=== PATIENT | female | born 1990 | race African-American/Black ===

== ENCOUNTER 2016-05-05 03:11 | Emergency (ER) | payer MEDICAID, OTHER ==
--- NOTE | 2016-05-05 04:39 | ER Document Report ---
ED General - General Chief Complaint: Cough Stated Complaint: COUGH,VOMITING Notes: Patient is a 25-year-old asthmatic that comes emergency department with 2 complaints. First complaint is a discomfort in the right ear with a "bubbling sensation" and pressure. Ongoing sinus congestion and cough, she states that she has had cough for months now. She has been on prednisone and antibiotics. She occasionally uses a nasal spray and Claritin. Patient occasionally uses her nebulizer as well. Patient denies any fever, wheezing, shortness of breath. She states she cannot sleep because of coughing and congestion. TRAVEL OUTSIDE OF THE [place] IN LAST 30 DAYS: No - Related Data Allergies/Adverse Reactions: azithromycin [From Zithromax Z-Lukas] Allergy (Verified 05/05/16 03:22) Past Medical History - General Information source: Patient - Social History Smoking Status: Never Smoker Frequency of alcohol use: None Drug Abuse: None Lives with: Family Family History: Arthritis, CAD, DM, Hyperlipidemia, Hypertension, Malignancy Pulmonary Medical History: Reports: Hx Asthma, Hx Bronchitis, Hx Pneumonia Renal/ Medical History: Reports: Hx Ovarian Cysts. Denies: Hx Peritoneal Dialysis Musculoskeltal Medical History: Reports Hx Musculoskeletal Deformity, Reports Hx Musculoskeletal Trauma Psychiatric Medical History: Reports: Hx Anxiety, Hx Depression Past Surgical History: Reports: Hx Section - x 2, Hx Orthopedic Surgery - Axilla abscess removal - Immunizations Immunizations up to date: No Hx Diphtheria, Pertussis, Tetanus Vaccination: No Hx Pneumococcal Vaccination: 04/07/00 Review of Systems - Review of Systems Constitutional: No symptoms reported EENT: See HPI Cardiovascular: No symptoms reported Respiratory: See HPI Gastrointestinal: No symptoms reported Genitourinary: No symptoms reported Female Genitourinary: No symptoms reported Musculoskeletal: No symptoms reported Skin: No symptoms reported Hematologic/Lymphatic: No symptoms reported Neurological/Psychological: No symptoms reported Physical Exam - Vital signs Vitals: Temp Pulse Resp BP Pulse Ox 97.9 F 90 16 112/85 96 05/05/16 03:25 05/05/16 03:25 05/05/16 03:25 05/05/16 03:25 05/05/16 03:25 Interpretation: Normal - General General appearance: Appears well, Alert In distress: None - HEENT Head: Normocephalic, Atraumatic Eyes: Normal Conjunctiva: Normal Extraocular movements intact: Yes Eyelashes: Normal Pupils: PERRL Ears: Normal External canal: Other - Large amount of cerumen bilaterally including hard cerumen near the tympanic membrane, cannot visualize the tympanic membrane Sinus: Normal Nasal: Other - Swollen turbinates bilaterally, no other abnormalities noted Mouth/Lips: Normal Pharynx: Normal Neck: Normal - Respiratory Respiratory status: No respiratory distress Chest status: Nontender Breath sounds: Normal Chest palpation: Normal - Cardiovascular Rhythm: Regular Heart sounds: Normal auscultation Murmur: No - Abdominal Inspection: Normal Distension: No distension Bowel sounds: Normal Tenderness: Nontender Organomegaly: No organomegaly - Back Back: Normal, Nontender - Extremities General upper extremity: Normal inspection, Nontender, Normal color, Normal ROM , Normal temperature General lower extremity: Normal inspection, Nontender, Normal color, Normal ROM , Normal temperature, Normal weight bearing. No: Gris's sign - Neurological Neuro grossly intact: Yes Cognition: Normal Orientation: AAOx4 [place] Coma Scale Eye Opening: Spontaneous [place] Coma Scale Verbal: Oriented [place] Coma Scale Motor: Obeys Commands [place] Coma Scale Total: 15 Speech: Normal Motor strength normal: LUE, RUE, LLE, RLE Sensory: Normal - Psychological Associated symptoms: Normal affect, Normal mood - Skin Skin Temperature: Warm Skin Moisture: Dry Skin Color: Normal Course - Re-evaluation Re-evalutation: Patient with congestion, swollen turbinates, reporting symptoms consistent with right ear effusion, clear lungs, no wheezing, no hypoxia. Suspect strong allergic component and congestion symptoms are the cause of her symptoms. - Vital Signs Vital signs: Temp Pulse Resp BP Pulse Ox 98.4 F 93 16 124/76 100 05/05/16 05:08 05/05/16 05:08 05/05/16 03:50 05/05/16 05:08 05/05/16 05:08 Discharge - Discharge Clinical Impression: Sinus congestion, Cough Ear pain Qualifiers: Laterality: right Qualified Code(s): H92.01 - Otalgia, right ear Condition: Stable Disposition: HOME, SELF-CARE Additional Instructions: Your examination is consistent with sinus and nasal congestion, this appears to have caused eustachian tube plugging and your ear symptoms. Your examination suggests this is an allergic problem. Begin to use your nasal spray daily, take the Aide as prescribed daily, follow-up with primary care and consider allergy clinic referral if symptoms do not improve. Return to emergency department for concerning or worsening symptoms. Prescriptions: Hydrocodone Bit/Homatropine [Hycodan Syrup 5-1.5 mg/5 ml Ud Cup] 5 ml PO Q4HP PRN #120 ml PRN Reason: Fexofenadine HCl [Aide Allergy] 180 mg PO DAILY #60 tablet Forms: Return to Work
[2016-05-05 05:11] VITALS: BP 124/76
== END 2016-05-05 05:11 | disposition home or self-care (01) ==
LOC: ER 03:11
DX: R05 Cough (principal); R09.81 Nasal congestion; H61.23 Impacted cerumen, bilateral; H92.01 Otalgia, right ear; J45.909 Unspecified asthma, uncomplicated; Z87.01 Personal history of pneumonia (recurrent)
CPT/HCPCS: 99283

== ENCOUNTER 2016-12-28 01:28 | Emergency (ER) | payer MEDICAID ==
--- NOTE | 2016-12-28 02:19 | ER Document Report ---
ED Headache - General Mode of Arrival: Ambulatory Information source: Patient TRAVEL OUTSIDE OF THE [place] IN LAST 30 DAYS: No - HPI Patient complains to provider of: Headache - General Chief Complaint: Headache Stated Complaint: HEADACHE Time Seen by Provider: 12/28/16 02:02 Notes: Patient is a 26 year old female presenting to the emergency department for headache and aphasia. Patient states she has had headaches for the past 2 months and they are causing her to be worn out and exhausted. Patient states last night and again tonight she had an episode of difficulty speaking while she was with her friends. Patient states that she knew what she wanted to say but it came out like "baby talk" and was not complete sentences or words. Patient states that these episodes lasted less than 30 seconds and she got a headache tonight about 30 minutes after the episode. Patient states that she also had some dizziness, lightheadedness, and some difficulty seeing tonight. Patient states these symptoms are gone but she is still experiencing a headache. Patient states she has seen a neurologist in [place] where she had a brain CT scan that showed something questionable but patient does not recall what it was. Patient saw a neurologist less than 2 weeks ago. Patient was started on trazodone and Topamax. Patient states these medications seem to be working at first but they have stopped working after she took them for a couple of days. Patient is allergic to azithromycin. (PRIYA VEGA) - Related Data Allergies/Adverse Reactions: azithromycin [From Zithromax Z-Lukas] Allergy (Verified 12/28/16 01:37) Past Medical History - General Information source: Patient - Social History Smoking Status: Never Smoker Cigarette use (# per day): No Chew tobacco use (# tins/day): No Smoking Education Provided: No Frequency of alcohol use: Social Drug Abuse: None Family History: Arthritis, CAD, DM, Hyperlipidemia, Hypertension, Malignancy Patient has suicidal ideation: No Patient has homicidal ideation: No Pulmonary Medical History: Reports: Hx Asthma, Hx Bronchitis, Hx Pneumonia Renal/ Medical History: Reports: Hx Ovarian Cysts Musculoskeltal Medical History: Reports Hx Musculoskeletal Deformity, Reports Hx Musculoskeletal Trauma Psychiatric Medical History: Reports: Hx Anxiety, Hx Depression Past Surgical History: Reports: Hx Section - x 2, Hx Orthopedic Surgery - Axilla abscess removal - Immunizations Immunizations up to date: No Hx Diphtheria, Pertussis, Tetanus Vaccination: No Hx Pneumococcal Vaccination: 04/07/00 Review of Systems - Review of Systems Constitutional: No symptoms reported. denies: Fever EENT: See HPI, Other. denies: Blurred vision Cardiovascular: See HPI, Dizziness, Lightheaded. denies: Chest pain Respiratory: No symptoms reported. denies: Short of breath Gastrointestinal: See HPI, Diarrhea, Nausea, Vomiting. denies: Abdominal pain Genitourinary: No symptoms reported Female Genitourinary: No symptoms reported Musculoskeletal: See HPI, Neck pain Skin: No symptoms reported. denies: Rash Hematologic/Lymphatic: No symptoms reported Neurological/Psychological: Weakness, Headaches -: Yes All other systems reviewed and negative Physical Exam - Vital signs Interpretation: Normal - Vital signs Vitals: Temp Pulse Resp BP Pulse Ox 97.8 F 68 17 123/68 100 12/28/16 03:15 12/28/16 03:15 12/28/16 03:15 12/28/16 03:15 12/28/16 03:15 Temperature: 98.6 F Oral Pulse: 90 bpm Blood Pressure: 135/70 Respiratory Rate: 14 Unlabored Pulse Ox: 100% Room Air (PRIYA VEGA) - Notes Notes: GENERAL: Alert, interacts well. No acute distress. HEAD: Normocephalic, atraumatic. EYES: Pupils equal, round, and reactive to light. Extraocular movements intact. ENT: Oral mucosa moist, tongue midline. Nares patent, no nasal septal hematoma, TM's intacts. Well-healed keloids to the posterior aspect of the ear bilaterally. NECK: Full range of motion. Supple. Trachea midline. LUNGS: Clear to auscultation bilaterally, no wheezes, rales, or rhonchi. No respiratory distress. HEART: Regular rate and rhythm. No murmurs, gallops, or rubs. ABDOMEN: Obese. Soft, non-tender. Non-distended. Bowel sounds present in all 4 quadrants. EXTREMITIES: Moves all 4 extremities spontaneously. No edema, radial and dorsalis pedis pulses 2/4 bilaterally. No cyanosis. NEUROLOGICAL: Alert and oriented x3. Normal speech. Cranial nerves II through XII grossly intact. Biceps and patellar DTRs 2+ bilaterally. PSYCH: Normal affect, normal mood. SKIN: Warm, dry, normal turgor. No rashes or lesions noted. (PRIYA VEGA) [id number], finger to nose intact (CINDY DE LA VEGA) Course - Re-evaluation Re-evalutation: 12/28/16 02:25 No acute focal neurologic deficits at this time, only complaint at this time is the headache. I did discuss with the patient that the aphasia that has been transient could possibly represent a seizure versus an atypical migraine. Discussed that is very important to follow-up with her neurologist, particularly given that the patient states something abnormal was seen on a CAT scan that she had since the last CAT scan she had here. Recommended that she request an MRI and follow-up. No indication for acute MRI at this time as all neurologic symptoms have resolved. No evidence of stroke at this time. Patient will be treated with Toradol, Compazine, Benadryl and discharged home. Compazine and Benadryl will be given by mouth as she has to drive home and I do not want to make her too tired to drive by giving her Compazine and Benadryl as shots. Patient is aware that she should not drive after she gets home due to the concern that these might be seizures. (CINDY DE LA VEGA) - Vital Signs Vital signs: Temp Pulse Resp BP Pulse Ox 97.8 F 68 17 123/68 100 12/28/16 03:15 12/28/16 03:15 12/28/16 03:15 12/28/16 03:15 12/28/16 03:15 Discharge - Discharge Clinical Impression: Migraine Qualifiers: Migraine type: without aura Status migrainosus presence: with status migrainosus Intractability: intractable Qualified Code(s): G43.011 - Migraine without aura, intractable, with status migrainosus Condition: Stable Disposition: HOME, SELF-CARE Additional Instructions: Migraine Headache The physician feels that your symptoms are due to a migraine attack. Migraines are caused by changes in the blood vessels of the head. Arteries go into spasm, often causing warning symptoms that a headache may begin soon. As the spasm goes away, the vessels dilate and throb, causing the pounding pain of a migraine headache. Migraines often cause nausea and vomiting. The treatment of headaches varies with severity and cause of pain. Not all headaches need pain shots -- in fact, there is evidence that using narcotics for headaches may make them worse in the long run. The physician will determine the therapy that's in your best interest for this particular headache. Medications are available that may prevent migraines, or stop them as they first occur. If one medication is not helpful, try another. If migraines are frequent, be patient -- follow the doctor's recommendations. Call the physician if you are worsening, or if new symptoms arise. It is possible that your difficulty in speaking also known as a fascia could be coming from either an atypical migraine or from a seizure. It is very important that she do not drive until we have ruled out seizures. It is also very important that you follow-up with your neurologist as an outpatient. You mentioned that on a prior CAT scan something was seen but they were not sure what it was, as your symptoms are progressing it may be gonzalez to have an MRI performed. You do not need an MRI tonight as all your symptoms have resolved. Rachna Attestation: 12/28/16 05:38 I personally performed the services described in the documentation, reviewed and edited the documentation which was dictated to the scribe in my presence, and it accurately records my words and actions. (CINDY DE LA VEGA) Raulibe Documentation - Scribe Written by Rachna:: Rachna Keller, 12/28/2016 2:30 acting as scribe for :: Rachel
[2016-12-28] MEDS ORDERED: PROCHLORPERAZINE MALEATE 10 MG TABLET PO ONE (02:23)
[2016-12-28] MEDS ORDERED: DIPHENHYDRAMINE HCL 50 MG CAPSULE PO ONE (02:23)
[2016-12-28] MEDS ORDERED: KETOROLAC TROMETHAMINE 60 MG/2 ML SDV IM ONE (02:23)
[2016-12-28 03:12] VITALS: BP 123/68
== END 2016-12-28 03:19 | disposition home or self-care (01) ==
LOC: ER 01:28
DX: G43.011 Migraine without aura, intractable, with status migrainosus (principal); R47.01 Aphasia; R42 Dizziness and giddiness; H53.9 Unspecified visual disturbance; Z79.899 Other long term (current) drug therapy
CPT/HCPCS: 99283; 96372; J3490; J1885; S0183

== ENCOUNTER 2017-01-28 09:34 | Emergency (ER) | payer SELFPAY ==
[2017-01-28] MEDS ORDERED: PROCHLORPERAZINE MALEATE 10 MG TABLET PO ONE (10:36)
[2017-01-28] MEDS ORDERED: KETOROLAC TROMETHAMINE 60 MG/2 ML SDV IM ONE (10:36)
[2017-01-28] MEDS ORDERED: DIPHENHYDRAMINE HCL 50 MG CAPSULE PO ONE (10:36)
--- NOTE | 2017-01-28 10:50 | ER Document Report ---
HPI - HPI Patient complains to provider of: Headache Onset: Other Onset/Duration: Intermittent Quality of pain: Throbbing Severity: Moderate Pain Level: 4 Context: Patient complains of intermittent headache for 2 days. Is currently waiting on neurology referral from her primary care physician. States this is not the worst headache area. Patient does report some nausea but no vomiting. Denies fever or recent illness. Associated Symptoms: Headache, Nausea. denies: Vomiting Exacerbated by: Denies Relieved by: Denies Similar symptoms previously: Yes Recently seen / treated by doctor: Yes - ROS ROS below otherwise negative: Yes Systems Reviewed and Negative: Yes All other systems reviewed and negative - CONSTITUTIONAL Constitutional: DENIES: Fever - EENT EENT: REPORTS: Nasal Drainage-Clear - Allergies - NEURO Neurology: REPORTS: Headache. DENIES: Vision blurred, Dizzinesss / Vertigo - CARDIOVASCULAR Cardiovascular: DENIES: Chest pain - RESPIRATORY Respiratory: DENIES: Trouble Breathing - GASTROINTESTINAL Gastrointestinal: DENIES: Abdominal Pain - URINARY Urinary: DENIES: Dysuria - REPRODUCTIVE Reproductive: DENIES: : - MUSCULOSKELETAL Musculoskeletal: DENIES: Extremity pain - DERM Skin Color: Normal Skin Problems: None Past Medical History - General Information source: Patient - Social History Smoking Status: Never Smoker Frequency of alcohol use: None Drug Abuse: None Lives with: Family Family History: Arthritis, CAD, DM, Hyperlipidemia, Hypertension, Malignancy Pulmonary Medical History: Reports: Hx Asthma, Hx Bronchitis, Hx Pneumonia Neurological Medical History: Reports: Hx Migraine Renal/ Medical History: Reports: Hx Ovarian Cysts Musculoskeltal Medical History: Reports Hx Musculoskeletal Deformity, Reports Hx Musculoskeletal Trauma Psychiatric Medical History: Reports: Hx Anxiety, Hx Depression Past Surgical History: Reports: Hx Section - x 2, Hx Orthopedic Surgery - Axilla abscess removal - Immunizations Immunizations up to date: No Hx Diphtheria, Pertussis, Tetanus Vaccination: No Hx Pneumococcal Vaccination: 04/07/00 Vertical Provider Document - CONSTITUTIONAL Agree With Documented VS: Yes Exam Limitations: No Limitations General Appearance: WD/WN, No Apparent Distress Notes: Patient appears in no distress. She is watching videos on her cell phone upon entry to the room for exam. - INFECTION CONTROL TRAVEL OUTSIDE OF THE [place] IN LAST 30 DAYS: No - HEENT HEENT: Atraumatic, Normocephalic, PERRLA - EOMI Notes: Ears and throat are normal, patient does have clear runny nose. - NECK Neck: Normal Inspection, Supple - RESPIRATORY Respiratory: Breath Sounds Normal, No Respiratory Distress O2 Sat by Pulse Oximetry: 100 - CARDIOVASCULAR Cardiovascular: Regular Rate, Regular Rhythm - GI/ABDOMEN Gastrointestinal: Abdomen Soft, Abdomen Non-Tender - MUSCULOSKELETAL/EXTREMETIES Musculoskeletal/Extremeties: MAEW - NEURO Level of Consciousness: Awake, Alert, Appropriate Notes: Cranial nerves grossly intact. Patient able to touch nose with finger, shins with opposite heel without difficulty. - DERM Integumentary: Warm, Dry Course - Re-evaluation Re-evalutation: 01/28/17 10:51 Patient being given p.o. Benadryl and Compazine instead of injections. Patient lives 5 minutes from hospital. She states she was given the same medications last month for a visit for headache. 01/28/17 10:52 - Vital Signs Vital signs: Temp Pulse Resp BP Pulse Ox 98.5 F 86 133/89 H 100 01/28/17 09:37 01/28/17 09:37 01/28/17 09:37 01/28/17 09:37 Discharge - Discharge Clinical Impression: Headache Qualifiers: Headache type: unspecified Headache chronicity pattern: chronic headache Intractability: not intractable Qualified Code(s): R51 - Headache Condition: Good Disposition: HOME, SELF-CARE Instructions: Antinausea Medication ([facility]), Use of Diphenhydramine, Headache ( [facility]), Toradol Injection ([facility]) Additional Instructions: Fioricet as prescribed for headaches Zofran as needed if any nausea Although it with your doctor this week for recheck Return as needed Prescriptions: Butalb/Acetaminophen/Caffeine [Fioricet (50-325-40 mg) Tablet] 1 - 2 tab PO Q4H #20 tab Forms: Return to Work
[2017-01-28 11:26] VITALS: BP 132/80
== END 2017-01-28 11:26 | disposition home or self-care (01) ==
LOC: ER 09:34
DX: R51 Headache (principal); R11.0 Nausea; J45.909 Unspecified asthma, uncomplicated; R09.89 Other specified symptoms and signs involving the circulatory and respiratory systems
CPT/HCPCS: 99283; 96372; J3490; J1885; S0183

== ENCOUNTER 2017-11-03 08:02 | Emergency (ER) | payer MEDICAID ==
[2017-11-03] MEDS ORDERED: NORMAL SALINE 1000 ML 1,000 ML IV ONE (08:32)
[2017-11-03] MEDS ORDERED: PROCHLORPERAZINE EDISYLATE INJ 10 MG/2 ML VIAL IM ONE (08:32)
[2017-11-03] MEDS ORDERED: DIPHENHYDRAMINE HCL 50 MG/ML VIAL IV ONE (08:32)
[2017-11-03] MEDS ORDERED: KETOROLAC TROMETHAMINE INJ/PF 30 MG/1 ML SDV IV ONE (08:33)
--- NOTE | 2017-11-03 08:39 | ER Document Report ---
HPI - HPI Patient complains to provider of: headache 4/5 Onset: Other - last night Quality of pain: Throbbing Pain Level: 4 Context: 27-year-old female complaining of throbbing left temporal headache that started last night. It dulled to where she could go to sleep but then this morning when she woke up at 3:00 to go to the bathroom it was level 5/5. She was dropped off by her father and the headache level is 4/5 at this time without medication. She was given a headache cocktail at [facility] in the past. LMP October 07. No symptoms of upper respiratory infection. No fever or chills. No radiculopathy. Associated Symptoms: None Exacerbated by: Denies Relieved by: Denies - ROS ROS below otherwise negative: Yes Systems Reviewed and Negative: Yes All other systems reviewed and negative - REPRODUCTIVE Reproductive: DENIES: : Past Medical History - General Information source: Patient - Social History Smoking Status: Unknown if Ever Smoked Frequency of alcohol use: None Drug Abuse: None Lives with: Family Family History: Arthritis, CAD, DM, Hyperlipidemia, Hypertension, Malignancy Pulmonary Medical History: Reports: Hx Asthma, Hx Bronchitis, Hx Pneumonia Neurological Medical History: Reports: Hx Migraine Renal/ Medical History: Reports: Hx Ovarian Cysts. Denies: Hx Peritoneal Dialysis Musculoskeletal Medical History: Reports Hx Musculoskeletal Deformity, Reports Hx Musculoskeletal Trauma Psychiatric Medical History: Reports: Hx Anxiety, Hx Depression Past Surgical History: Reports: Hx Section - x 2, Hx Orthopedic Surgery - Axilla abscess removal - Immunizations Immunizations up to date: No Hx Diphtheria, Pertussis, Tetanus Vaccination: No Hx Pneumococcal Vaccination: 04/07/00 Vertical Provider Document - CONSTITUTIONAL Agree With Documented VS: Yes Exam Limitations: No Limitations General Appearance: No Apparent Distress - INFECTION CONTROL TRAVEL OUTSIDE OF THE [place] IN LAST 30 DAYS: No COUNTRY TRAVELED TO/FROM: [place] - HEENT HEENT: Normal ENT Exam, Normocephalic Notes: eom's intact, PERRL - NECK Neck: Supple. negative: Lymphadenopathy-Left, Lymphadenopathy-Right - RESPIRATORY Respiratory: Breath Sounds Normal, No Respiratory Distress - CARDIOVASCULAR Cardiovascular: Regular Rate, Regular Rhythm - MUSCULOSKELETAL/EXTREMETIES Musculoskeletal/Extremeties: MAEW, FROM - NEURO Level of Consciousness: Awake, Alert, Appropriate - gait stable, cerebellar test normal Motor/Sensory: No Motor Deficit, No Sensory Deficit Course - Re-evaluation Re-evalutation: 11/03/17 08:[address] [facility] 11/03/17 08:47 11/03/17 09:43 Headache is 0 will send her home with a referral to neurology. Patient understands the instructions. 11/03/17 09:44 - Vital Signs Vital signs: Temp Pulse Resp BP Pulse Ox 98.9 F 100 16 132/86 H 100 11/03/17 08:06 11/03/17 08:06 11/03/17 08:06 11/03/17 08:06 11/03/17 08:06 Discharge - Discharge Clinical Impression: Headache Qualifiers: Headache type: unspecified Headache chronicity pattern: episodic headache Intractability: not intractable Qualified Code(s): R51 - Headache Condition: Good Disposition: HOME, SELF-CARE Instructions: Intravenous Compazine for Headaches ([facility]), Use of Diphenhydramine , Headache ([facility]) Additional Instructions: See the neurologist Return to the emergency room if worse Referrals: PRICILLA WITT MD [NO LOCAL MD] - Follow up as needed
[2017-11-03] MEDS ORDERED: PROCHLORPERAZINE EDISYLATE INJ 10 MG/2 ML VIAL IV ONE (09:15)
[2017-11-03 09:51] VITALS: BP 129/55
== END 2017-11-03 09:54 | disposition home or self-care (01) ==
LOC: ER 08:02
DX: R51 Headache (principal); J45.909 Unspecified asthma, uncomplicated
CPT/HCPCS: 99284; 96361; 96374; 96375; J1200; J1885; J0780; J7030

== ENCOUNTER 2018-02-06 16:27 | Emergency (ER) | payer SELFPAY ==
[2018-02-06 16:31] VITALS: BP 129/82
--- NOTE | 2018-02-06 16:59 | ER Document Report ---
HPI - HPI Pain Level: 2 Notes: Patient is a 27-year-old female with a history of asthma and obesity who presents to the ED complaining of a dry nonproductive cough times 3 weeks. Patient states that she will have coughing fits on occasion as well. Patient states that she did have an illness initially, but those symptoms have since resolved. She is otherwise able to eat and drink without any difficulties. She is urinating normally the patient states that she is ambulatory without any hindrance to her ADLs. Patient states that she has had symptoms previously after illnesses and has needed steroids. No other concerns or complaints at this time. Denies any headache, fever, neck pain/stiffness, URI, sore throat, chest pain, palpitations, syncope, shortness of breath, dyspnea, abdominal pain , nausea/vomiting/diarrhea, urinary retention, dysuria, hematuria, back pain, or rash. Denies any prolonged immobilization, distance travel, recent surgery/ trauma, personal cancer history, hormone use, smoking, or previous DVT/PE. - ROS Systems Reviewed and Negative: Yes All other systems reviewed and negative - REPRODUCTIVE Reproductive: DENIES: : Past Medical History - Social History Smoking Status: Never Smoker Family History: Arthritis, CAD, DM, Hyperlipidemia, Hypertension, Malignancy Pulmonary Medical History: Reports: Hx Asthma, Hx Bronchitis, Hx Pneumonia Neurological Medical History: Reports: Hx Migraine Renal/ Medical History: Reports: Hx Ovarian Cysts. Denies: Hx Peritoneal Dialysis Musculoskeletal Medical History: Reports Hx Musculoskeletal Deformity, Reports Hx Musculoskeletal Trauma Psychiatric Medical History: Reports: Hx Anxiety, Hx Depression Past Surgical History: Reports: Hx Section - x 2, Hx Orthopedic Surgery - Axilla abscess removal - Immunizations Immunizations up to date: No Hx Diphtheria, Pertussis, Tetanus Vaccination: No Hx Pneumococcal Vaccination: 04/07/00 Vertical Provider Document - CONSTITUTIONAL Agree With Documented VS: No - HR 96 Notes: PHYSICAL EXAMINATION: GENERAL: Well-appearing, well-nourished and in no acute distress. HEAD: Atraumatic, normocephalic. EYES: Pupils equal round and reactive to light, extraocular movements intact, sclera anicteric, conjunctiva are normal. ENT: Nares patent and without discharge. oropharynx clear without exudates. No tonsilar hypertrophy or erythema. Moist mucous membranes. NECK: Normal range of motion, supple without lymphadenopathy. No rigidity/ meningismus. LUNGS: Breath sounds clear to auscultation bilaterally and equal. No wheezes rales or rhonchi. No retractions HEART: Regular rate and rhythm without murmurs, rubs, gallops. Musculoskeletal: FROM to passive/active. Strength 5+/5. Gris neg b/l. No LE asymmetry Extremities: No cyanosis, clubbing, or edema b/l. Peripheral pulses 2+. Capillary refill less than 3 seconds. NEUROLOGICAL: Normal speech, normal gait. PSYCH: Normal mood, normal affect. SKIN: Warm, Dry, normal turgor, no rashes or lesions noted. - INFECTION CONTROL TRAVEL OUTSIDE OF THE [place] IN LAST 30 DAYS: No COUNTRY TRAVELED TO/FROM: [place] Course - Re-evaluation Re-evalutation: 02/06/18 18:27 Patient is an afebrile, well-hydrated, 27-year-old female who presents to the ED with acute URI, suspect viral. Vitals are stable. PE is otherwise unremarkable. Chest x-ray unremarkable. No other labs or imaging warranted at this time based on H&P. Patient has no significant cardiopulmonary or immunocompromised medical conditions. Patient's lungs are clear to auscultation bilaterally without significant tachycardia (hr 96 during my exam and then again at discharge review via apical auscultation), hypoxia, or tachypnea. She has not had any CAMPBELL, SOB, or CP. Patient is tolerating p.o. without any difficulties. Low suspicion for any ACS, PE, Pneumo, meningitis, sepsis, peritonsillar/pharyngeal abscess, respiratory compromise, severe dehydration, or other emergent systemic condition at this time. Patient is aware this condition can change from initial presentation and she needs to monitor symptoms closely. Rx for steroid taper and tessalon. Conservative measures otherwise for symptoms. Recheck with your PCM in 3-5 days. Return to the ED with any worsening/concerning symptoms otherwise as reviewed in discharge. Patient is in agreement. - Vital Signs Vital signs: Temp Pulse Resp BP Pulse Ox 98.9 F 117 H 16 129/82 H 100 02/06/18 16:30 02/06/18 16:30 02/06/18 16:30 02/06/18 16:30 02/06/18 16:30 Discharge - Discharge Clinical Impression: Acute URI Condition: Stable Disposition: HOME, SELF-CARE Instructions: Upper Respiratory Illness ([facility]) Additional Instructions: Maintain adequate fluid intake Take meds as directed tylenol/ibuprofen as needed over the counter cold medication as needed for symptoms Humidified air may help Wash your hands regularly Wear a mask when coughing F/u: with your PCM in 3-5 days for a recheck Return to the ED with any fever, worsening pain, chest pain, palpitations, syncope, worsening GILL[place]PIE, neck pain/stiffness, shortness of breath, wheezing, drooling, trouble swallowing/breathing, abdominal pain, n/v/d, rash, or worsening/concerning symptoms otherwise. Prescriptions: Benzonatate [Tessalon Perle 100 mg Capsule] 100 mg PO Q8HP PRN #15 cap PRN Reason: Prednisone 20 mg PO ASDIR #18 tablet Forms: Elevated Blood Pressure Referrals: [facility] [Provider Group] - Follow up as needed [facility] [Provider Group] - Follow up as needed
--- NOTE | 2018-02-06 18:24 | RADIOLOGY REPORT (SQ) ---
EXAM DESCRIPTION: CHEST 2 VIEWS COMPLETED DATE/TIME: 02/06/2018 5:25 pm REASON FOR STUDY: cough COMPARISON: 01/02/2016 TECHNIQUE: Frontal and lateral radiographic views of the chest acquired. NUMBER OF VIEWS: Two view. LIMITATIONS: None. FINDINGS: LUNGS AND PLEURA: No pneumothorax. No consolidation or pleural effusion. MEDIASTINUM AND HILAR STRUCTURES: Stable. HEART AND VASCULAR STRUCTURES: Stable. BONES: No acute findings. HARDWARE: None in the chest. OTHER: No other significant finding. IMPRESSION: NO ACUTE FINDINGS. TECHNICAL DOCUMENTATION: JOB ID: [id number] 2010 [employer]- All Rights Reserved Reading location - IP/workstation name: [email or web address]
== END 2018-02-06 18:32 | disposition home or self-care (01) ==
LOC: ER 16:27
DX: J06.9 Acute upper respiratory infection, unspecified (principal); R05 Cough; J45.909 Unspecified asthma, uncomplicated
CPT/HCPCS: 71046; 99283

== ENCOUNTER 2018-02-24 07:19 | Emergency (ER) | payer SELFPAY ==
[2018-02-24 07:25] VITALS: BP 142/79
[2018-02-24] MEDS ORDERED: KETOROLAC TROMETHAMINE 60 MG/2 ML SDV IM ONE (07:54)
--- NOTE | 2018-02-24 07:58 | ER Document Report ---
ED Fall - General Chief Complaint: Fall Stated Complaint: FALL/BACK PAIN Time Seen by Provider: 02/24/18 07:52 TRAVEL OUTSIDE OF THE [place] IN LAST 30 DAYS: No COUNTRY TRAVELED TO/FROM: [facility] Notes: Patient is a 27-year-old female that presents to the emergency department for chief complaint of back injury. Patient states last night after standing up from using the bathroom she slipped on water on the floor. She fell backwards hitting her thoracic back on a corner of a wall. She states she had some initial bruising in her back which has now resolved. She reports a sharp pain in the middle of her upper back since the fall. The pain is constant and worse with movement and laying flat. She denies any difficulty breathing, numbness and weakness. She denied head injury and loss of consciousness. She has not taken byoy-owf-yizrhpy medications for her pain. She denies any incontinence fevers or chills. Past Medical History: Asthma Past Surgical History: x2 Social History: Denies drugs alcohol and tobacco Family History: Reviewed and noncontributory for presenting illness Allergies: Reviewed, see documented allergy list. REVIEW OF SYSTEMS: CONSTITUTIONAL : No fever No chills No diaphoresis No recent illness EENT: No vision changes No congestion No sore throat CARDIOVASCULAR: No chest pain No palpitations RESPIRATORY: No shortness of breath No cough No difficulty breathing GASTROINTESTINAL: No abdominal pain No nausea No vomiting No diarrhea GENITOURINARY: No dysuria No hematuria No difficulty urinating MUSCULOSKELETAL: back pain No leg pain No arm pain SKIN: No rashes No lesions LYMPHATIC: No swollen, enlarged glands. NEUROLOGICAL: No lightheadedness No headache No weakness No paresthesias PSYCHIATRIC: No anxiety No depression PHYSICAL EXAMINATION: Vital signs reviewed, nursing noted reviewed. GENERAL: Well-appearing, well-nourished and in no acute distress. HEAD: Atraumatic, normocephalic. EYES: Eyes appear normal, extraocular movements intact, sclera anicteric, conjunctiva are normal. ENT: nares patent, oropharynx clear without exudates. Moist mucous membranes. NECK: Normal range of motion, supple without lymphadenopathy. No midline cervical spine tenderness LUNGS: Breath sounds clear to auscultation bilaterally and equal. No wheezes rales or rhonchi. HEART: Regular rate and rhythm without murmurs ABDOMEN: Soft, nontender, normoactive bowel sounds. No rebound, guarding, or rigidity. No masses appreciated. EXTREMITIES: Nontender, good range of motion, no pitting or edema. Back: Midline thoracic tenderness. Left paraspinal thoracic tenderness. Normal range of motion NEUROLOGICAL: No focal neurological deficits. Moves all extremities spontaneously Motor and sensory grossly intact on exam. PSYCH: Normal mood, normal affect. SKIN: Warm, Dry, normal turgor, no rashes or lesions noted on exposed skin - Related data Allergies/Adverse Reactions: azithromycin [From Zithromax Z-Lukas] Allergy (Verified 02/24/18 07:20) Past Medical History - Social History Smoking Status: Never Smoker Family History: Arthritis, CAD, DM, Hyperlipidemia, Hypertension, Malignancy Pulmonary Medical History: Reports: Hx Asthma, Hx Bronchitis, Hx Pneumonia Neurological Medical History: Reports: Hx Migraine Renal/ Medical History: Reports: Hx Ovarian Cysts. Denies: Hx Peritoneal Dialysis Musculoskeletal Medical History: Reports Hx Musculoskeletal Deformity, Reports Hx Musculoskeletal Trauma Psychiatric Medical History: Reports: Hx Anxiety, Hx Depression Past Surgical History: Reports: Hx Section - x 2, Hx Orthopedic Surgery - Axilla abscess removal - Immunizations Immunizations up to date: No Hx Diphtheria, Pertussis, Tetanus Vaccination: No Hx Pneumococcal Vaccination: 04/07/00 Review of Systems - Review of Systems Notes: Dictated Physical Exam - Vital signs Vitals: Temp Pulse Resp BP Pulse Ox 98.3 F 86 18 142/79 H 99 02/24/18 07:22 02/24/18 07:22 02/24/18 07:22 02/24/18 07:22 02/24/18 07:22 - Notes Notes: Dictated Course - Re-evaluation Re-evalutation: 02/24/18 07:56 Vitals reviewed. Nursing notes reviewed. Patient has midline tenderness in her thoracic spine and CT scan will be obtained to evaluate for acute fracture. She has no focal neurologic deficits. There is no cervical tenderness or report of head injury. Patient given Toradol for pain. 02/24/18 08:36 CT scan shows no acute fracture or injury from her fall. The CT also read an upper lobe opacity suggestive of edema or pneumonia. Patient has no clinical symptoms of pneumonia and is breathing easily on room air. She was informed of these findings and will follow with her primary care doctor. Discharged home in stable condition. Thoracic Spine CT 02/24/18 07:53 IMPRESSION: 1. No evidence of spine fracture. No gross rib fracture. 2. Nonspecific infiltrate right upper lobe. Ground-glass opacities worrisome for pneumonia or asymmetric edema. - Vital Signs Vital signs: Temp Pulse Resp BP Pulse Ox 98.3 F 86 18 142/79 H 99 02/24/18 07:22 02/24/18 07:22 02/24/18 07:22 02/24/18 07:22 02/24/18 07:22 Discharge - Discharge Clinical Impression: Back pain Qualifiers: Back pain location: thoracic back pain Chronicity: acute Back pain laterality: midline Qualified Code(s): M54.6 - Pain in thoracic spine Condition: Stable Disposition: HOME, SELF-CARE Instructions: Family Physicians / Practices, Upper Back Strain ([facility]) Additional Instructions: Please return to the emergency department if you have any worsening, or concern of your symptoms. Please return to the emergency department if you develop chest pain, difficulty breathing, severe abdominal pain, or ongoing vomiting. Please follow-up with your primary care physician in 2-3 days and any other recommended physicians. If prescribed, take all medications as directed. If you have any questions or concerns do not hesitate to return the emergency department for evaluation. []
--- NOTE | 2018-02-24 08:35 | RADIOLOGY REPORT (SQ) ---
EXAM DESCRIPTION: CT THORACIC SPINE WITHOUT COMPLETED DATE/TIME: 02/24/2018 8:23 am REASON FOR STUDY: back pain COMPARISON: None. TECHNIQUE: Axial images acquired through the thoracic spine without intravenous contrast. Images re viewed with lung, soft tissue and bone windows. Reconstructed coronal and sagittal MPR images review ed. Images stored on PACS. All CT scanners at this facility use dose modulation, iterative reconstruction, and/or weight based d osing when appropriate to reduce radiation dose to as low as reasonably achievable (ALARA). [facility]: Dose Right [facility]: CareDose [facility]: Dose Right [facility]: Teradose 4D [facility]: [employer] RADIATION DOSE: CT Rad equipment meets quality standard of care and radiation dose reduction techniq ues were employed. CTDIvol: 75.2 mGy. DLP: 2440 mGy-cm. mGy. LIMITATIONS: None. FINDINGS: VISUALIZED LUNGS: Motion artifact. Ground-glass infiltrate in the right upper lobe. No p neumothorax or pleural disease. SOFT TISSUES: No soft tissue swelling. No masses. VERTEBRAL BODIES: No fractures. No dislocation. No acute findings. DISCS: Multilevel diminished disc height. No bulky osteophytes or large disc hernia suggested. ALIGNMENT: Normal. TRANSVERSE PROCESSES, POSTERIOR ELEMENTS: No fractures. No dislocation. No acute findings. HARDWARE: None in the spine. VISUALIZED RIBS: No fractures. OTHER: No other significant finding. IMPRESSION: 1. No evidence of spine fracture. No gross rib fracture. 2. Nonspecific infiltrate rig ht upper lobe. Ground-glass opacities worrisome for pneumonia or asymmetric edema. TECHNICAL DOCUMENTATION: JOB ID: [id number] Quality ID # [id number]: Final reports with documentation of one or more dose reduction techniques (e.g., Au tomated exposure control, adjustment of the mA and/or kV according to patient size, use of iterative reconstruction technique) 2010 [employer]- All Rights Reserved Reading location - IP/workstation name: [email or web address]
== END 2018-02-24 09:24 | disposition home or self-care (01) ==
LOC: ER 07:19
DX: M54.9 Dorsalgia, unspecified (principal); M54.6 Pain in thoracic spine; W01.198A Fall on same level from slipping, tripping and stumbling with subsequent striking against other object, initial encounter; Z88.3 Allergy status to other anti-infective agents
CPT/HCPCS: 99283; 96372; 72128; J1885

== ENCOUNTER 2018-03-07 11:38 | Emergency (ER) | payer SELFPAY ==
[2018-03-07 11:46] VITALS: BP 140/91
[2018-03-07] MEDS ORDERED: PREDNISONE 20 MG TABLET PO ONE (11:56)
[2018-03-07] MEDS ORDERED: IPRATROPIUM/ALBUTEROL 0.5-2.5 MG/3 ML AMPUL NEB ONE (11:56)
--- NOTE | 2018-03-07 11:56 | ER Document Report ---
ED General - General Chief Complaint: Shortness Of Breath Stated Complaint: COUGH Time Seen by Provider: 03/07/18 11:47 Notes: Patient is a 27-year-old female with history of asthma that presents to the emergency department for chief complaint of cough and shortness of breath. Patient reports having the symptoms for almost 6 weeks now, initially she was seen around that time, treated with steroids, antibiotics and albuterol, and she was improved for a short period of time but her symptoms came back after finishing steroids. She currently uses a breathing machine, as well as a rescue inhaler for her asthma, she is not currently on an inhaled corticosteroid. She states she has had some wheezing associated with this as well. Denies having any chest pain, nausea, vomiting, fevers, chills, night sweats. She states she does have a dry cough, and will cough to the point that she is gagging at times. Past Medical History: Asthma Past Surgical History: 2 C-sections Social History: Denies tobacco, alcohol or drug use. Family History: Reviewed and noncontributory for presenting illness Allergies: Reviewed, see documented allergy list. REVIEW OF SYSTEMS: Other than noted above, the 12 point review of systems was reviewed with the patient and were negative, all pertinent findings are included in the HPI. PHYSICAL EXAMINATION: Vital signs reviewed, nursing noted reviewed. GENERAL: Well-appearing, well-nourished and in no acute distress. HEAD: Atraumatic, normocephalic. EYES: Eyes appear normal, extraocular movements intact, sclera anicteric, conjunctiva are normal. ENT: nares patent, oropharynx clear without exudates. Moist mucous membranes. NECK: Normal range of motion, supple without lymphadenopathy LUNGS: Decreased air movement, mild expiratory wheezing noted in all lung lucas , but no acute respiratory distress HEART: Regular rate and rhythm without murmurs ABDOMEN: Soft, obese, nontender, normoactive bowel sounds. No rebound, guarding , or rigidity. No masses appreciated. EXTREMITIES: Nontender, good range of motion, no pitting or edema. NEUROLOGICAL: No focal neurological deficits. Moves all extremities spontaneously Motor and sensory grossly intact on exam. PSYCH: Normal mood, normal affect. SKIN: Warm, Dry, normal turgor, no rashes or lesions noted on exposed skin TRAVEL OUTSIDE OF THE [place] IN LAST 30 DAYS: No COUNTRY TRAVELED TO/FROM: [place] - Related Data Allergies/Adverse Reactions: azithromycin [From Zithromax Z-Lukas] Allergy (Verified 03/07/18 11:52) Past Medical History - Social History Smoking Status: Never Smoker Chew tobacco use (# tins/day): No Frequency of alcohol use: None Drug Abuse: None Family History: Arthritis, CAD, DM, Hyperlipidemia, Hypertension, Malignancy Patient has suicidal ideation: No Patient has homicidal ideation: No Pulmonary Medical History: Reports: Hx Asthma, Hx Bronchitis, Hx Pneumonia Neurological Medical History: Reports: Hx Migraine Renal/ Medical History: Reports: Hx Ovarian Cysts. Denies: Hx Peritoneal Dialysis Musculoskeletal Medical History: Reports Hx Musculoskeletal Deformity, Reports Hx Musculoskeletal Trauma Psychiatric Medical History: Reports: Hx Anxiety, Hx Depression Past Surgical History: Reports: Hx Section - x 2, Hx Orthopedic Surgery - Axilla abscess removal - Immunizations Immunizations up to date: No Hx Diphtheria, Pertussis, Tetanus Vaccination: No Hx Pneumococcal Vaccination: 04/07/00 Physical Exam - Vital signs Vitals: Temp Pulse Resp BP Pulse Ox 97.9 F 99 20 140/91 H 98 03/07/18 11:44 03/07/18 11:44 03/07/18 11:44 03/07/18 11:44 03/07/18 11:44 Course - Re-evaluation Re-evalutation: Patient medicated with DuoNeb breathing treatments, and 60 mg of prednisone, and chest x-ray obtained. Patient presents with a mild exacerbation of their baseline asthma. Mild wheezing at time of presentation but vitals do not show significant hypoxemia or tachypnea. No retractions. Patient did clinically improve after receiving nebulizers here in the emergency department. Chest x-ray without evidence of an acute pneumonia. Patient able to ambulate without any respiratory distress. Based on patient's overall reassuring assessment, I believe they are stable for outpatient management with steroids. At this time will discharge with return precautions and follow-up recommendations. Verbal discharge instructions given a the bedside and opportunity for questions given. Medication warnings reviewed. Patient is in agreement with this plan and has verbalized understanding of return precautions and the need for primary care follow-up in the next 24-72 hours. - Vital Signs Vital signs: Temp Pulse Resp BP Pulse Ox 97.9 F 99 20 140/91 H 98 03/07/18 11:44 03/07/18 11:44 03/07/18 11:44 03/07/18 11:44 03/07/18 11:44 Discharge - Discharge Clinical Impression: Asthma exacerbation Qualifiers: Asthma severity: unspecified severity Asthma persistence: unspecified Qualified Code(s): J45.901 - Unspecified asthma with (acute) exacerbation Condition: Stable Disposition: HOME, SELF-CARE Instructions: Asthma ([facility]) Additional Instructions: Please return to the emergency department if you have any worsening, or concern of your symptoms. Please return to the emergency department if you develop chest pain, difficulty breathing, severe abdominal pain, or ongoing vomiting. Please follow-up with your primary care physician in 2-3 days and any other recommended physicians. If prescribed, take all medications as directed. If you have any questions or concerns do not hesitate to return the emergency department for evaluation. You may need additional medications for asthma to keep it at bay, such as inhaled steroids, but these need to be prescribed by a primary care physician, to phone numbers have been provided to try to establish with a primary care physician in the area, so that you may be evaluated for these medications. Prescriptions: Prednisone [Deltasone 20 mg Tablet] 3 tab PO DAILY 4 Days #12 tablet Referrals: DOMINIC MOSLEY MD [COMMUNITY BASED STAFF] - Follow up in 3-5 days [facility] [Provider Group] - Follow up in 3-5 days
--- NOTE | 2018-03-07 13:09 | RADIOLOGY REPORT (SQ) ---
EXAM DESCRIPTION: CHEST 2 VIEWS COMPLETED DATE/TIME: 03/07/2018 12:56 pm REASON FOR STUDY: cough COMPARISON: 02/06/2018 and earlier EXAM PARAMETERS: NUMBER OF VIEWS: two views TECHNIQUE: Digital Frontal and Lateral radiographic views of the chest acquired. RADIATION DOSE: NA LIMITATIONS: none FINDINGS: LUNGS AND PLEURA: No opacities, masses or pneumothorax. No pleural effusion. MEDIASTINUM AND HILAR STRUCTURES: No masses or contour abnormalities. HEART AND VASCULAR STRUCTURES: Heart normal size. No evidence for failure. BONES: No acute findings. HARDWARE: None in the chest. OTHER: No other significant finding. IMPRESSION: NO ACUTE RADIOGRAPHIC FINDING IN THE CHEST. TECHNICAL DOCUMENTATION: JOB ID: [id number] [employer]- All Rights Reserved Reading location - IP/workstation name: [email or web address]
== END 2018-03-07 13:00 | disposition home or self-care (01) ==
LOC: ER 11:38
DX: J45.901 Unspecified asthma with (acute) exacerbation (principal); Z79.899 Other long term (current) drug therapy; R05 Cough; R06.02 Shortness of breath; Z87.01 Personal history of pneumonia (recurrent); Z88.1 Allergy status to other antibiotic agents
CPT/HCPCS: 94640; 99284; 71046; J7512; J7620

== ENCOUNTER 2018-05-31 11:12 | Observation (INO) | payer SELFPAY ==
--- NOTE | 2018-05-31 12:01 | ER Document Report ---
ED Medical Screen (RME) - General Chief Complaint: Chest Pain Stated Complaint: CHEST PAIN, ARM TINGLING Time Seen by Provider: 05/31/18 11:56 Notes: Patient is a 27-year-old female that presents to the emergency department for chief complaint of chest pain. Patient reports concern had chest pain last night that will wax and wane, with associated tingling that goes down her left arm, reports family history of cardiac disease. ROS: Other than noted above, the 12 point review of systems was reviewed with the patient and were negative, all pertinent findings are included in the HPI. PHYSICAL EXAMINATION: Vital signs reviewed. GENERAL: Well-appearing, well-nourished and in no acute distress. HEAD: Atraumatic, normocephalic. EYES: Pupils equal round extraocular movements intact, conjunctiva are normal. ENT: Nares patent NECK: Normal range of motion CV: Heart regular rate and rhythm LUNGS: No respiratory distress Musculoskeletal: Normal range of motion NEUROLOGICAL: Normal speech PSYCH: Normal mood, normal affect. MDM: Patient seen and examined for rapid initial assessment. Vital signs reviewed. A comprehensive ED assessment and evaluation of the patient, analysis of test results and completion of the medical decision making process will be conducted by additional ED providers. *Note is created using voice recognition software and may contain spelling, syntax or grammatical errors. TRAVEL OUTSIDE OF THE [place] IN LAST 30 DAYS: No COUNTRY TRAVELED TO/FROM: [place] - Related Data Allergies/Adverse Reactions: azithromycin [From Zithromax Z-Lukas] Allergy (Verified 03/07/18 11:52) Past Medical History Pulmonary Medical History: Reports: Hx Asthma, Hx Bronchitis, Hx Pneumonia Neurological Medical History: Reports: Hx Migraine Renal/ Medical History: Reports: Hx Ovarian Cysts. Denies: Hx Peritoneal Dialysis Musculoskeltal Medical History: Reports Hx Musculoskeletal Deformity, Reports Hx Musculoskeletal Trauma Psychiatric Medical History: Reports: Hx Anxiety, Hx Depression Past Surgical History: Reports: Hx Section - x 2, Hx Orthopedic Surgery - Axilla abscess removal - Immunizations Immunizations up to date: No Hx Diphtheria, Pertussis, Tetanus Vaccination: No History of Influenza Vaccine for 01/2017 - 06/2017 Season: No Physical Exam - Vital signs Vitals: Temp Pulse Resp Pulse Ox 99.5 F 100 20 100 05/31/18 11:27 05/31/18 11:27 05/31/18 11:27 05/31/18 11:27 Course - Vital Signs Vital signs: Temp Pulse Resp BP Pulse Ox 99.5 F 100 20 100 05/31/18 11:27 05/31/18 11:27 05/31/18 11:27 05/31/18 11:27
--- NOTE | 2018-05-31 13:02 | RADIOLOGY REPORT (SQ) ---
EXAM DESCRIPTION: CHEST SINGLE VIEW COMPLETED DATE/TIME: 05/31/2018 12:48 pm REASON FOR STUDY: chest pain COMPARISON: 03/07/2018 TECHNIQUE: Single frontal radiographic view of the chest acquired. NUMBER OF VIEWS: One view. LIMITATIONS: None. FINDINGS: LUNGS AND PLEURA: No pneumothorax. No consolidation or pleural effusion. MEDIASTINUM AND HILAR STRUCTURES: Stable. HEART AND VASCULAR STRUCTURES: Stable. BONES: No acute findings. HARDWARE: None in the chest. OTHER: No other significant finding. IMPRESSION: NO ACUTE FINDINGS. TECHNICAL DOCUMENTATION: JOB ID: [id number] [id number] 2010 [employer]- All Rights Reserved Reading location - IP/workstation name: [employer]
[2018-05-31 13:23] LABS: ABSOLUTE BASOPHILS # (AUTO) 0.1 10^3/uL (0.0-0.2); ABSOLUTE EOSINOPHILS # (AUTO) 0.2 10^3/uL (0.0-0.6); ABSOLUTE LYMPHOCYTES (AUTO) 2.3 10^3/uL (0.5-4.7); ABSOLUTE MONOCYTES (AUTO) 0.8 10^3/uL (0.1-1.4); ABSOLUTE NEUT (AUTO) 5.3 10^3/uL (1.7-8.2); BASOPHILS % (AUTO) 1.2 % (0-2); EOSINOPHILS % (AUTO) 2.3 % (0-6); HEMATOCRIT 23.3 % (36.0-47.0); LYMPHOCYTES % (AUTO) 26.8 % (13-45); MEAN CORPUSCULAR HEMOGLOBIN 16.8 pg (27.0-33.4); MEAN CORPUSCULAR HGB CONC 28.2 g/dL (32.0-36.0); MONOCYTES % (AUTO) 8.9 % (3-13); PLATELET COUNT 204 10^3/uL (150-450); RED BLOOD COUNT 3.91 10^6/uL (3.72-5.28); RED CELL DISTRIBUTION WIDTH 19.5 % (11.5-14.0); SEGMENTED NEUTROPHILS % (AUTO) 60.8 % (42-78); TOTAL CELLS COUNTED % (AUTO) 100 %; WHITE BLOOD COUNT 8.7 10^3/uL (4.0-10.5)
[2018-05-31 13:35] LABS: ALANINE AMINOTRANSFERASE 12 U/L (9-52); ALBUMIN 4.1 g/dL (3.5-5.0); ALKALINE PHOSPHATASE 52 U/L (38-126); ANION GAP 8 (5-19); ASPARTATE AMINO TRANSFERASE 25 U/L (14-36); BILIRUBIN,DIRECT 0.3 mg/dL (0.0-0.4); BILIRUBIN,TOTAL 0.4 mg/dL (0.2-1.3); BLOOD UREA NITROGEN 9 mg/dL (7-20); CALCIUM 8.9 mg/dL (8.4-10.2); CARBON DIOXIDE 24 mmol/L (22-30); CHLORIDE 109 mmol/L (98-107); GLUCOSE 83 mg/dL (75-110); POTASSIUM 4.5 mmol/L (3.6-5.0); SODIUM 140.8 mmol/L (137-145); TOTAL PROTEIN 7.7 g/dL (6.3-8.2)
[2018-05-31 13:44] LABS: MEAN CORPUSCULAR VOLUME 60 fl (80-97)
[2018-05-31 13:48] LABS: ANISOCYTOSIS 2+; HEMOGLOBIN 6.6 g/dL (12.0-15.5); HYPOCHROMASIA 3+; OVALOCYTES 1+; PLATELET COMMENT ADEQUATE; PLATELET LARGE PRESENT; POIKILOCYTOSIS 1+; POLYCHROMASIA SLIGHT; TEAR DROP CELLS SLIGHT
[2018-05-31] MEDS ORDERED: NORMAL SALINE 250 ML IV PRN (14:01)
--- NOTE | 2018-05-31 14:40 | ER Document Report ---
ED General - General Chief Complaint: Chest Pain Stated Complaint: CHEST PAIN, ARM TINGLING Time Seen by Provider: 05/31/18 11:56 TRAVEL OUTSIDE OF THE [place] IN LAST 30 DAYS: No COUNTRY TRAVELED TO/FROM: [facility] Notes: Patient presents to the emergency department for evaluation of chest pain. She states that this started last night. It is been constant in nature but waxes and wanes in intensity. She describes it as a sharp pain with radiation into her left arm. She describes associated shortness of breath. She did say she felt slightly nauseated today. She does have a history of anemia on further questioning. She states she had been on iron in the past. She relates heavy menstruation. - Related Data Allergies/Adverse Reactions: azithromycin [From Zithromax Z-Lukas] Allergy (Verified 05/31/18 12:02) Past Medical History - General Information source: Patient - Social History Smoking Status: Never Smoker Chew tobacco use (# tins/day): No Frequency of alcohol use: None Drug Abuse: None Family History: Arthritis, CAD - Patient's father had CABG in his 40s, DM, Hyperlipidemia, Hypertension, Malignancy Patient has suicidal ideation: No Patient has homicidal ideation: No Pulmonary Medical History: Reports: Hx Asthma, Hx Bronchitis, Hx Pneumonia Neurological Medical History: Reports: Hx Migraine Renal/ Medical History: Reports: Hx Ovarian Cysts. Denies: Hx Peritoneal Dialysis Musculoskeletal Medical History: Reports Hx Musculoskeletal Deformity, Reports Hx Musculoskeletal Trauma Psychiatric Medical History: Reports: Hx Anxiety, Hx Depression Past Surgical History: Reports: Hx Section - x 2, Hx Orthopedic Surgery - Axilla abscess removal - Immunizations Immunizations up to date: No Hx Diphtheria, Pertussis, Tetanus Vaccination: No Hx Pneumococcal Vaccination: 04/07/00 Review of Systems - Review of Systems Constitutional: No symptoms reported EENT: No symptoms reported Cardiovascular: See HPI Gastrointestinal: See HPI Musculoskeletal: No symptoms reported Skin: No symptoms reported Hematologic/Lymphatic: See HPI Neurological/Psychological: No symptoms reported Physical Exam - Vital signs Vitals: Temp Pulse Resp Pulse Ox 99.5 F 100 20 100 05/31/18 11:27 05/31/18 11:27 05/31/18 11:27 05/31/18 11:27 - Notes Notes: Vital signs reviewed, please refer to chart. Patient is normocephalic, atraumatic. Pupils equal round, reactive to light. Neck is supple without meningismus. Heart is regular rate and rhythm. Lungs are clear to auscultation bilaterally. Abdomen is soft, nontender, normoactive bowel sounds throughout. Extremities without cyanosis, clubbing, edema. Peripheral pulses are equal. Calves are nontender. Skin is warm and dry. Patient is awake, alert, neurological exam is nonfocal. Course - Re-evaluation Re-evalutation: 05/31/18 14:40 Patient presents emergency department for evaluation of chest pain. She does have coronary artery disease risk factors, and her pain is worsened with exertion. Workup here revealed normal cardiac enzymes, normal EKG. Of note however was her hemoglobin is 6.6. I suspect this is the etiology of her anginal type chest pain. Type and cross for 2 units was placed. I did discuss this patient with Dr. Cuevas. He was concerned about the possibility of a pulmonary embolus. She does not have any independent risk factors for this. CT angiogram of the chest was ordered and is pending at this time. I discussed this patient with Dr. Florence at 1440, he will admit her for further care. - Vital Signs Vital signs: Temp Pulse Resp BP Pulse Ox 99.5 F 100 20 94 05/31/18 11:27 05/31/18 11:27 05/31/18 11:27 05/31/18 13:13 - Laboratory Result Diagrams: 05/31/18 13:05 05/31/18 13:05 Laboratory results interpreted by me: 05/31/18 05/31/18 13:05 13:05 Hgb 6.6 L Hct 23.3 L MCV 60 L MCH 16.8 L MCHC 28.2 L RDW 19.5 H Chloride 109 H - Diagnostic Test Radiology reviewed: Reports reviewed - No acute cardiopulmonary disease - EKG Interpretation by Me Additional EKG results interpreted by me: 05/31/18 14:35 Normal sinus mechanism with a rate of 95 bpm. Normal axis and intervals, no acute ST changes concerning for ischemia or infarction. Discharge - Discharge Clinical Impression: Anemia, Chest pain Condition: Stable Admitting Provider: Hospitalist - [facility] Admitted: Telemetry
[2018-05-31] MEDS ORDERED: ONDANSETRON 4 MG TAB.RAPDIS PO PRN (15:29)
[2018-05-31] MEDS ORDERED: ENOXAPARIN SODIUM INJ 40 MG/0.4 ML DISP.SYRIN SUBCUT SCH (15:45)
[2018-05-31 15:50] LABS: ABSOLUTE RETICS # 0.114 10^6/uL (0.028-0.122); RETICULOCYTE COUNT (AUTO) 2.89 % (0.66-2.85)
[2018-05-31 15:52] LABS: IRON(TIBC) 16.8 ug/dL (37-170)
--- NOTE | 2018-05-31 15:57 | EKG REPORT ---
SEVERITY:- BORDERLINE ECG - SINUS RHYTHM BORDERLINE T ABNORMALITIES, ANTERIOR LEADS : Confirmed by: Gregory Arevalo MD 31-May-2018 15:56:30
--- NOTE | 2018-05-31 15:59 | PDOC H&P ---
History of Present Illness Patient complains of: chest tightness, and progressive SOB History of Present Illness: VERO PORTER is a 27 year old female with history of morbid obesity, asthma, migraines, and iron deficiency anemia due to heavy menstruation who presents to the ED on 05/31/18 with chest pressure and SOB. Patient states that over the last 3 weeks, she has noted that she has progressive SOB with exertion. Last night, she developed chest pressure and intermittent numbness/tingling in her left hand. States the pain is intermittent and dull in nature. She has mild nausea but denies diaphoresis, abdominal pain, indigestion, vomiting. Of note, patient has a history of iron deficiency anemia due to heavy menstruation. This is a long standing issue and about 2 years ago presented to [facility] ER with very si milar presentation and required blood transfusion. Was evaluated by CUSTOMER ACQUISITION MANAGER (Dr. Martin) for menstrual bleeding. She was started on oral iron and OCP. States that contraceptives actually made bleeding worse. There was discussion that patient should get hysterectomy. She was unsure what etiology of bleed is (fibroids?). Patient denies other sources of bleeding, specifically rectal, oral, or in urine . She has not personal history of sickle cell disease or thalassemia. FOr reasons that were not entirely clear, she has been off iron supplemental for many months and only re-started a few days ago when SOB was getting worse. She will be admitted for hospitalist service as an observation on tele unit. Past Medical History Pulmonary Medical History: Reports: Asthma, Bronchitis, Pneumonia Neurological Medical History: Reports: Migraine Psychiatric Medical History: Reports: Depression Hematology: Reports: Anemia, Bleeding Tendencies Past Surgical History Past Surgical History: Reports: Section - x 2, Orthopedic Surgery - Axilla abscess removal Social History Smoking Status: Never Smoker Frequency of Alcohol Use: None Hx Recreational Drug Use: No Hx Prescription Drug Abuse: No Family History Family History: Arthritis, CAD - Patient's father had CABG in his 40s, DM, Hyper lipidemia, Hypertension, Malignancy Parental Family History Reviewed: Yes - NO history of SCA or thalassemia Children Family History Reviewed: Yes Sibling(s) Family History Reviewed.: Yes Medication/Allergy Home Medications: No Home Medications 05/31/18 Allergies/Adverse Reactions: azithromycin [From Zithromax Z-Lukas] Allergy (Verified 05/31/18 12:02) Review of Systems All systems: reviewed and no additional remarkable complaints except as stated Physical Exam Vital Signs: Temp Pulse Resp BP Pulse Ox 99.5 F 100 20 94 05/31/18 11:27 05/31/18 11:27 05/31/18 11:27 05/31/18 13:13 Intake & Output 05/30/18 05/31/18 06/01/18 06:59 06:59 06:59 Weight 161.3 kg General appearance: PRESENT: no acute distress, cooperative, morbidly obese Head exam: PRESENT: atraumatic Mouth exam: PRESENT: moist Respiratory exam: PRESENT: clear to auscultation naheed, unlabored. ABSENT: tachypnea, wheezes Cardiovascular exam: PRESENT: +S1, +S2, tachycardia GI/Abdominal exam: PRESENT: soft, other - Obese. ABSENT: tenderness Extremities exam: PRESENT: +1 edema Neurological exam: PRESENT: alert, awake, CN II-XII grossly intact Psychiatric exam: PRESENT: appropriate affect, normal mood Skin exam: PRESENT: dry, intact Results Laboratory Results: 05/31/18 13:05 05/31/18 13:05 05/31/18 05/31/18 05/31/18 13:05 13:05 13:05 WBC 8.7 RBC 3.91 Hgb 6.6 L Hct 23.3 L MCV 60 L MCH 16.8 L MCHC 28.2 L RDW 19.5 H Plt Count 204 Seg Neutrophils % 60.8 Lymphocytes % 26.8 Monocytes % 8.9 Eosinophils % 2.3 Basophils % 1.2 Absolute Neutrophils 5.3 Absolute Lymphocytes 2.3 Absolute Monocytes 0.8 Absolute Eosinophils 0.2 Absolute Basophils 0.1 Sodium 140.8 Potassium 4.5 Chloride 109 H Carbon Dioxide 24 Anion Gap 8 BUN 9 Creatinine 0.71 Est GFR ( Amer) > 60 Est GFR (Non-Af Amer) > 60 Glucose 83 Calcium 8.9 Total Bilirubin 0.4 AST 25 ALT 12 Alkaline Phosphatase 52 Total Protein 7.7 Albumin 4.1 Serum HCG, Qual NEGATIVE Blood Type Antibody Screen 05/31/18 14:35 WBC RBC Hgb Hct MCV MCH MCHC RDW Plt Count Seg Neutrophils % Lymphocytes % Monocytes % Eosinophils % Basophils % Absolute Neutrophils Absolute Lymphocytes Absolute Monocytes Absolute Eosinophils Absolute Basophils Sodium Potassium Chloride Carbon Dioxide Anion Gap BUN Creatinine Est GFR ( Amer) Est GFR (Non-Af Amer) Glucose Calcium Total Bilirubin AST ALT Alkaline Phosphatase Total Protein Albumin Serum HCG, Qual Blood Type O POSITIVE Antibody Screen NEGATIVE 05/31/18 13:05 Troponin I < 0.012 Impressions: Chest X-Ray 05/31/18 12:00 IMPRESSION: NO ACUTE FINDINGS. Assessment & Plan - Diagnosis (1) Iron deficiency anemia Qualifiers: Iron deficiency anemia type: chronic blood loss Qualified Code(s): D50.0 - Iron deficiency anemia secondary to blood loss (chronic) Is this a current diagnosis for this admission?: Yes Plan: Anemia at presentation is 6.8. MCV 60. Patient has known heavy menses and had very similar presentation 2 years ago - Will transfuse with 2u pRBC - Iron studies added to ER labs (only realiable if obtained prior to blood transfusion) - Should be re-started on PO Iron at discharge - Needs to underlying issue, re: heavy menstruation - Admit to tele as obs - Likely discharge on 06/01 if H&H is stable and symptoms improve (2) Heavy menstrual bleeding Qualifiers: Menorrahagia type: with onset of menstrual periods Qualified Code(s): N92.2 - Excessive menstruation at puberty Is this a current diagnosis for this admission?: Yes Plan: Long standing problem. Unclear if patient has fibroids or other pathology to account for menses - Previously trial of OCP which did not help - Has seen Dr. Martin (CUSTOMER ACQUISITION MANAGER) in past, very important that she follows up with CUSTOMER ACQUISITION MANAGER for further management as this is mainly an outpatient issue (3) Chest pain Is this a current diagnosis for this admission?: Yes Plan: Atypical CP and likely related to severe anemia - Troponin * 1 negative, will not trend further - EGK without changes - CTM to monitor - Placed on tele unit (4) Morbid obesity Is this a current diagnosis for this admission?: Yes Plan: Needs weight loss with diet and exercise - Nutrition consulted - Time Time Spent: 50 to 70 Minutes Critical Time spent with patient: Less than 15 minutes Medications reviewed and adjusted accordingly: Yes Anticipated discharge: Home Within: within 24 hours
[2018-05-31] MEDS ORDERED: TRAMADOL HCL 50 MG TABLET PO PRN (16:34)
[2018-05-31] MEDS ORDERED: ACETAMINOPHEN 325 MG TABLET PO PRN (16:34)
[2018-05-31] MEDS ORDERED: KETOROLAC TROMETHAMINE INJ/PF 30 MG/1 ML SDV ONE (20:07)
[2018-05-31] MEDS ORDERED: KETOROLAC TROMETHAMINE INJ/PF 30 MG/1 ML SDV IV PRN (20:24)
[2018-05-31] MEDS ORDERED: NALBUPHINE HCL INJ 10 MG/1 ML AMPULE IV PRN (20:25)
[2018-05-31] MEDS ORDERED: KETOROLAC TROMETHAMINE INJ/PF 30 MG/1 ML SDV IV ONE (20:30)
[2018-06-01 01:03] LABS: ABSOLUTE BASOPHILS # (AUTO) 0.1 10^3/uL (0.0-0.2); ABSOLUTE EOSINOPHILS # (AUTO) 0.3 10^3/uL (0.0-0.6); ABSOLUTE MONOCYTES (AUTO) 0.6 10^3/uL (0.1-1.4); ABSOLUTE NEUT (AUTO) 3.2 10^3/uL (1.7-8.2); BASOPHILS % (AUTO) 0.8 % (0-2); EOSINOPHILS % (AUTO) 3.7 % (0-6); HEMATOCRIT 29.1 % (36.0-47.0); LYMPHOCYTES % (AUTO) 41.8 % (13-45); MEAN CORPUSCULAR HEMOGLOBIN 19.3 pg (27.0-33.4); MEAN CORPUSCULAR HGB CONC 30.2 g/dL (32.0-36.0); MONOCYTES % (AUTO) 8.6 % (3-13); PLATELET COUNT 192 10^3/uL (150-450); RED BLOOD COUNT 4.55 10^6/uL (3.72-5.28); RED CELL DISTRIBUTION WIDTH 25.4 % (11.5-14.0); SEGMENTED NEUTROPHILS % (AUTO) 45.1 % (42-78); TOTAL CELLS COUNTED % (AUTO) 100 %; WHITE BLOOD COUNT 7.1 10^3/uL (4.0-10.5)
[2018-06-01 01:40] LABS: HEMOGLOBIN 8.8 g/dL (12.0-15.5); MEAN CORPUSCULAR VOLUME 64 fl (80-97)
[2018-06-01 01:44] LABS: ANISOCYTOSIS 2+; HYPOCHROMASIA 2+; OVALOCYTES 1+; PLATELET COMMENT ADEQUATE; POIKILOCYTOSIS 1+; POLYCHROMASIA 1+; TEAR DROP CELLS SLIGHT
[2018-06-01 06:04] LABS: HEMATOCRIT 29.6 % (36.0-47.0); HEMOGLOBIN 8.9 g/dL (12.0-15.5); MEAN CORPUSCULAR HEMOGLOBIN 19.4 pg (27.0-33.4); MEAN CORPUSCULAR VOLUME 65 fl (80-97); PLATELET COUNT 172 10^3/uL (150-450); RED BLOOD COUNT 4.58 10^6/uL (3.72-5.28); RED CELL DISTRIBUTION WIDTH 25.4 % (11.5-14.0); WHITE BLOOD COUNT 6.5 10^3/uL (4.0-10.5)
[2018-06-01] MEDS ORDERED: ENOXAPARIN SODIUM INJ 40 MG/0.4 ML DISP.SYRIN SUBCUT SCH (10:00)
[2018-06-01 11:39] LABS: PATH REVIEW PATHOLOGIST REVIEWED
[2018-06-01 12:49] VITALS: BP 112/84
--- NOTE | 2018-06-01 13:30 | PDOC DISCHARGE SUMMARY ---
General - Admit/Disc Date/PCP Admission Date/Primary Care Provider: 05/31/18 15:37 Discharge Date: 06/01/18 - Discharge Diagnosis (1) Iron deficiency anemia Is this a current diagnosis for this admission?: Yes Summary: Anemia at presentation is 6.8. MCV 60. Patient has known heavy menses and had very similar presentation 2 years ago - Will transfuse with 2u pRBC - Iron studies added to ER labs (only realiable if obtained prior to blood transfusion) - Should be re-started on PO Iron at discharge - Needs to underlying issue, re: heavy menstruation - Admit to tele as obs - Likely discharge on 06/01 if H&H is stable and symptoms improve 06/01/2018 this 27-year-old female admitted with iron deficiency anemia secondary to heavy menstrual periods. On admission hemoglobin is 6.8 with MCV of 60. Patient received 2 units of PRBC yesterday. Hemoglobin came up to 8.9 today. Patient is symptomatic from this morning. Patient says she has enough iron tablets at home she can restart the medications. I strongly advised her to follow-up with JAVA WEB USER INTERFACE DEVELOPER for further management of this heavy menstrual bleeding causing severe anemia. Patient agreed and going home today. (2) Heavy menstrual bleeding Is this a current diagnosis for this admission?: Yes Summary: Long standing problem. Unclear if patient has fibroids or other pathology to account for menses - Previously trial of OCP which did not help - Has seen Dr. Martin (JAVA WEB USER INTERFACE DEVELOPER) in past, very important that she follows up with J[employer] USER INTERFACE DEVELOPER for further management as this is mainly an outpatient issue 06/01/2018-patient has chronic history of heavy menstrual bleeding. She is following up with J[employer] WE[employer] USER INTERFACE DEVELOPER. As per the patient there is a discussion about possible hysterectomy last year. She sees Dr. Martin as an outpatient. Advised her to follow-up with Dr. Martin in 3-5 days. (3) Chest pain Is this a current diagnosis for this admission?: Yes Summary: 06/01/2018 patient is admitted with atypical chest pain most likely secondary to severe anemia causing stress on the heart. Troponins are negative. EKGs are normal. No complaints of chest pain this morning. Patient is going home today. (4) Morbid obesity Is this a current diagnosis for this admission?: Yes Summary: 06/01/2018-patient's BMI is more than 45 diet exercise weight loss and compliant with medications are discussed. - Additional Information Resuscitation Status: Full Code Discharge Diet: Cardiac Discharge Activity: Activity As Tolerated Prescriptions: [id number]/C/B12/Lv-Stm/If/FA [Eritrogen Tablet] 1 each PO TID #90 tablet Home Medications: Xyzv4rz/C/B12/Lv-Stm/If/FA [Eritrogen Tablet] 1 each PO TID #90 tablet 06/01/18 History of Present Illness History of Present Illness: VERO PORTER is a 27 year old female 27 year old female with history of morbid obesity, asthma, migraines, and iron deficiency anemia due to heavy menstruation who presents to the ED on 05/31/18 with chest pressure and SOB. Patient states that over the last 3 weeks, she has noted that she has progressive SOB with exertion. Last night, she developed chest pressure and intermittent numbness/tingling in her left hand. States the pain is intermittent and dull in nature. She has mild nausea but denies diaphoresis, abdominal pain, indigestion, vomiting. Of note, patient has a history of iron deficiency anemia due to heavy menstruation. This is a long standing issue and about 2 years ago presented to [facility] ER with very similar presentation and required blood transfusion. Was evaluated by JAVA WEB USER INTERFACE DEVELOPER (Dr. Martin) for menstrual bleeding. She was started on oral iron and OCP. States that contraceptives actually made bleeding worse. There was discussion that patient should get hysterectomy. She was unsure what etiology of bleed is (fibroids?). Patient denies other sources of bleeding, specifically rectal, oral, or in urine. She has not personal history of sickle cell disease or thalassemia. FOr reasons that were not entirely clear, she has been off iron supplemental for many months and only re-started a few days ago when SOB was getting worse. She will be admitted for hospitalist service as an observation on tele unit. Physical Exam Vital Signs: Temp Pulse Resp BP Pulse Ox 97.6 F 92 16 131/70 H 99 06/01/18 12:14 06/01/18 12:14 06/01/18 12:14 06/01/18 12:14 06/01/18 12:14 Intake & Output 05/31/18 06/01/18 06/02/18 06:59 06:59 06:59 Intake Total 1500 Balance 1500 Weight 161.8 kg General appearance: PRESENT: no acute distress Head exam: PRESENT: atraumatic Eye exam: PRESENT: PERRLA Mouth exam: PRESENT: moist, tongue midline Neck exam: ABSENT: carotid bruit, JVD, lymphadenopathy, thyromegaly Respiratory exam: PRESENT: clear to auscultation naheed. ABSENT: rales, rhonchi, wheezes Cardiovascular exam: PRESENT: RRR. ABSENT: diastolic murmur, rubs, systolic murmur GI/Abdominal exam: PRESENT: normal bowel sounds, soft. ABSENT: distended, guarding, mass, organolmegaly, rebound, tenderness Extremities exam: PRESENT: full ROM. ABSENT: calf tenderness, clubbing, pedal edema Neurological exam: PRESENT: alert, awake, oriented to person, oriented to place, oriented to time, oriented to situation, CN II-XII grossly intact. ABSENT: motor sensory deficit Psychiatric exam: PRESENT: appropriate affect, normal mood. ABSENT: homicidal ideation, suicidal ideation Results Laboratory Results: 06/01/18 04:52 05/31/18 13:05 05/31/18 05/31/18 05/31/18 13:05 13:05 13:05 WBC 8.7 RBC 3.91 Hgb 6.6 L Hct 23.3 L MCV 60 L MCH 16.8 L MCHC 28.2 L RDW 19.5 H Plt Count 204 Seg Neutrophils % 60.8 Lymphocytes % 26.8 Monocytes % 8.9 Eosinophils % 2.3 Basophils % 1.2 Absolute Neutrophils 5.3 Absolute Lymphocytes 2.3 Absolute Monocytes 0.8 Absolute Eosinophils 0.2 Absolute Basophils 0.1 Retic Count (auto) Absolute Retic Sodium 140.8 Potassium 4.5 Chloride 109 H Carbon Dioxide 24 Anion Gap 8 BUN 9 Creatinine 0.71 Est GFR ( Amer) > 60 Est GFR (Non-Af Amer) > 60 Glucose 83 Calcium 8.9 Iron TIBC % Saturation Ferritin Total Bilirubin 0.4 AST 25 ALT 12 Alkaline Phosphatase 52 Total Protein 7.7 Albumin 4.1 Vitamin B12 Folate Serum HCG, Qual NEGATIVE Blood Type Antibody Screen 05/31/18 05/31/18 05/31/18 13:05 13:05 14:35 WBC RBC Hgb Hct MCV MCH MCHC RDW Plt Count Seg Neutrophils % Lymphocytes % Monocytes % Eosinophils % Basophils % Absolute Neutrophils Absolute Lymphocytes Absolute Monocytes Absolute Eosinophils Absolute Basophils Retic Count (auto) 2.89 H Absolute Retic 0.114 Sodium Potassium Chloride Carbon Dioxide Anion Gap BUN Creatinine Est GFR ( Amer) Est GFR (Non-Af Amer) Glucose Calcium Iron 16.8 L TIBC 461 H % Saturation 4 Ferritin 3.40 L Total Bilirubin AST ALT Alkaline Phosphatase Total Protein Albumin Vitamin B12 349.0 Folate 11.30 Serum HCG, Qual Blood Type O POSITIVE Antibody Screen NEGATIVE 06/01/18 06/01/18 00:49 04:52 WBC 7.1 6.5 RBC 4.55 4.58 Hgb 8.8 L D 8.9 L Hct 29.1 L 29.6 L MCV 64 L D 65 L MCH 19.3 L 19.4 L MCHC 30.2 L 30.0 L RDW 25.4 H 25.4 H Plt Count 192 172 Seg Neutrophils % 45.1 Lymphocytes % 41.8 Monocytes % 8.6 Eosinophils % 3.7 Basophils % 0.8 Absolute Neutrophils 3.2 Absolute Lymphocytes 3.0 Absolute Monocytes 0.6 Absolute Eosinophils 0.3 Absolute Basophils 0.1 Retic Count (auto) Absolute Retic Sodium Potassium Chloride Carbon Dioxide Anion Gap BUN Creatinine Est GFR ( Amer) Est GFR (Non-Af Amer) Glucose Calcium Iron TIBC % Saturation Ferritin Total Bilirubin AST ALT Alkaline Phosphatase Total Protein Albumin Vitamin B12 Folate Serum HCG, Qual Blood Type Antibody Screen 05/31/18 13:05 Troponin I < 0.012 Impressions: Chest X-Ray 05/31/18 12:00 IMPRESSION: NO ACUTE FINDINGS. Qualifiers - * PATIENT BEING DISCHARGED WITH ANY OF THE FOLLOWING DIAGNOSIS: No VTE patient discharged on overlapping Therapy?: No
== END 2018-06-01 13:42 | disposition home or self-care (01) ==
LOC: ER 11:12 → INTOOBSV 15:37 → EH 15:37 → 5 17:28
PROVIDERS: ADMIT Internal Medicine; ATTEND Internal Medicine
DX: D50.0 Iron deficiency anemia secondary to blood loss (chronic) (principal); N92.0 Excessive and frequent menstruation with regular cycle; R07.89 Other chest pain; E66.01 Morbid (severe) obesity due to excess calories; R20.0 Anesthesia of skin; R20.2 Paresthesia of skin; R06.02 Shortness of breath; Z68.42 Body mass index [BMI] 45.0-49.9, adult; Z82.49 Family history of ischemic heart disease and other diseases of the circulatory system; Z98.890 Other specified postprocedural states; Z87.09 Personal history of other diseases of the respiratory system
CPT/HCPCS: 93005; 99285; 86900; 86901; 36415 ×2; 36430; 86850; 82607; 82728; 82746; 83540; 83550; 84703; 85025 ×2; 85027; 85045; 80053; 84484; 86920; 71045; 93010; P9016; S0119; J1885; J3490

== ENCOUNTER 2018-06-04 08:29 | Emergency (ER) | payer SELFPAY ==
[2018-06-04] MEDS ORDERED: ACETAMINOPHEN 325 MG TABLET PO ONE (09:44)
--- NOTE | 2018-06-04 09:45 | ER Document Report ---
HPI - HPI Time Seen by Provider: 06/04/18 09:27 Pain Level: 3 Context: Patient is a 27-year-old female who presents emergency department with a chief complaint of a cough, fever, weakness, and body aches. Her symptoms started yesterday. She has had some nasal congestion and a productive cough. She has a history of asthma and iron deficiency anemia. She denies any cigarette use, alcohol use, or illicit drug use. - CONSTITUTIONAL Constitutional: REPORTS: Fever. DENIES: Chills - EENT EENT: REPORTS: Sore Throat, Nasal Drainage-Clear, Congestion. DENIES: Ear Pain, Nasal Drainage-Purulent - NEURO Neurology: DENIES: Headache - CARDIOVASCULAR Cardiovascular: DENIES: Chest pain - RESPIRATORY Respiratory: REPORTS: Trouble Breathing, Coughing - GASTROINTESTINAL Gastrointestinal: DENIES: Abdominal Pain, Patient vomiting, Diarrhea - URINARY Urinary: DENIES: Dysuria - REPRODUCTIVE Reproductive: DENIES: : - DERM Skin Color: Normal Skin Problems: None Past Medical History - Social History Smoking Status: Never Smoker Frequency of alcohol use: None Drug Abuse: None Family History: Arthritis, CAD - Patient's father had CABG in his 40s, DM, Hyperlipidemia, Hypertension, Malignancy Patient has suicidal ideation: No Patient has homicidal ideation: No Pulmonary Medical History: Reports: Hx Asthma, Hx Bronchitis, Hx Pneumonia Neurological Medical History: Reports: Hx Migraine Renal/ Medical History: Reports: Hx Ovarian Cysts. Denies: Hx Peritoneal Dialysis Musculoskeletal Medical History: Reports Hx Musculoskeletal Deformity, Reports Hx Musculoskeletal Trauma Psychiatric Medical History: Reports: Hx Anxiety, Hx Depression Past Surgical History: Reports: Hx Section - x 2, Hx Orthopedic Surgery - Axilla abscess removal - Immunizations Immunizations up to date: No Hx Diphtheria, Pertussis, Tetanus Vaccination: No Hx Pneumococcal Vaccination: 04/07/00 Vertical Provider Document - CONSTITUTIONAL Agree With Documented VS: Yes Exam Limitations: No Limitations - INFECTION CONTROL TRAVEL OUTSIDE OF THE [place] IN LAST 30 DAYS: No COUNTRY TRAVELED TO/FROM: [place] - HEENT HEENT: Atraumatic, Normocephalic, Pharyngeal Tenderness, Pharyngeal Erythema. negative: Pharyngeal Exudate, Tympanic Membrane Red, Tympanic Membrane Bulging - NECK Neck: Normal Inspection - RESPIRATORY Respiratory: Breath Sounds Normal, No Respiratory Distress - CARDIOVASCULAR Cardiovascular: Regular Rate, Regular Rhythm Pulses: Normal: Radial - GI/ABDOMEN Gastrointestinal: Abdomen Soft - MUSCULOSKELETAL/EXTREMETIES Musculoskeletal/Extremeties: FROM - NEURO Level of Consciousness: Awake, Alert, Appropriate Motor/Sensory: No Motor Deficit, No Sensory Deficit - DERM Integumentary: Warm, Dry Course - Re-evaluation Re-evalutation: 06/04/18 10:59 The patient's influenza screens are negative. Although she has negative screens, suspect she does have an upper respiratory viral infection. I have discussed the results with the patient. She will be sent home with symptomatic care. I have a very low suspicion for asthma exacerbation as her lungs are clear. I do not suspect pneumonia as the patient has only had a cough for the past day. Verbal discharge instructions were given to the patient. They verbalized understanding. They are stable for discharge. - Vital Signs Vital signs: Temp Pulse Resp BP Pulse Ox 99.7 F 104 H 24 H 125/77 98 06/04/18 08:38 06/04/18 08:38 06/04/18 08:38 06/04/18 08:38 06/04/18 08:38 Discharge - Discharge Clinical Impression: Upper respiratory infection, viral Condition: Stable Disposition: HOME, SELF-CARE Instructions: Viral Syndrome (OM) Additional Instructions: You were seen today in the emergency department for a cough, fever, weakness, and body aches. You have an upper respiratory viral infection. Viral infections can last 7-10 days. You can take ibuprofen 600 mg and acetaminophen 1000 mg every 6 hours as needed for your symptoms. Please take the Flonase you have at home and use 1 spray to each nostril twice a day. Please follow-up with your primary care provider in regards to this visit. Forms: Return to Work
[2018-06-04 10:13] LABS: A TYPE INFLUENZA AG NEGATIVE (NEGATIVE); B INFLUENZA AG NEGATIVE (NEGATIVE)
[2018-06-04 11:48] VITALS: BP 117/59
== END 2018-06-04 11:42 | disposition home or self-care (01) ==
LOC: ER 08:29
DX: J06.9 Acute upper respiratory infection, unspecified (principal); R50.9 Fever, unspecified; R53.1 Weakness; M79.10 Myalgia, unspecified site; R09.81 Nasal congestion
CPT/HCPCS: 87804; 99283

== ENCOUNTER 2018-07-21 09:19 | Emergency (ER) | payer SELFPAY ==
[2018-07-21] MEDS ORDERED: GUAIFENESIN 600 MG TABLET.SA PO ONE (10:44)
[2018-07-21] MEDS ORDERED: LORATADINE 10 MG TABLET PO ONE (10:44)
[2018-07-21] MEDS ORDERED: PSEUDOEPHEDRINE HCL 30 MG TABLET PO ONE (10:44)
--- NOTE | 2018-07-21 10:45 | ER Document Report ---
ED Respiratory Problem - General Chief Complaint: Cough Stated Complaint: VOMITING/COUGH Time Seen by Provider: 07/21/18 10:33 Mode of Arrival: Ambulatory Information source: Patient Notes: 27-year-old female presented to ED for cough cold congestion with no fever. She states she has had these symptoms for 3 weeks. She is alert oriented respirations regular and unlabored speaking in full sentences walks with a even steady gait. TRAVEL OUTSIDE OF THE [place] IN LAST 30 DAYS: No COUNTRY TRAVELED TO/FROM: [facility] Patient complains to provider of: Cough Onset: Other - 3 weeks Duration: Continuous Initiating Event: URI Quality of pain: Achy Severity: Mild Pain Level: 1 Cough: Nonproductive Sputum amount: None Associated symptoms: Congestion, Cough, PND, Runny nose, Sinus pain/pressure, Sore Throat. denies: Fever, Wheezing Similar symptoms previously: Yes Recently seen / treated by doctor: No - Related Data Allergies/Adverse Reactions: azithromycin [From Zithromax Z-Lukas] Allergy (Verified 07/21/18 09:47) Past Medical History - General Information source: Patient - Social History Smoking Status: Never Smoker Frequency of alcohol use: None Drug Abuse: None Lives with: Family Family History: Arthritis, CAD - Patient's father had CABG in his 40s, DM, Hyperlipidemia, Hypertension, Malignancy Patient has suicidal ideation: No Patient has homicidal ideation: No - Past Medical History Cardiac Medical History: Reports: None Pulmonary Medical History: Reports: Hx Asthma, Hx Bronchitis, Hx Pneumonia EENT Medical History: Reports: None Neurological Medical History: Reports: Hx Migraine Endocrine Medical History: Reports: None Renal/ Medical History: Reports: Hx Ovarian Cysts Malignancy Medical History: Reports: None GI Medical History: Reports: None Musculoskeletal Medical History: Reports Hx Musculoskeletal Deformity, Reports Hx Musculoskeletal Trauma Skin Medical History: Reports None Psychiatric Medical History: Reports: Hx Anxiety, Hx Depression - anxiety Traumatic Medical History: Reports: None Infectious Medical History: Reports: None Past Surgical History: Reports: Hx Section - x 2, Hx Orthopedic Surgery - Axilla abscess removal - Immunizations Immunizations up to date: No Hx Diphtheria, Pertussis, Tetanus Vaccination: No Hx Pneumococcal Vaccination: 04/07/00 Review of Systems - Review of Systems Constitutional: Recent illness EENT: Nose congestion, Nose discharge, Sinus pressure, Sinus discharge Cardiovascular: No symptoms reported Respiratory: Cough Gastrointestinal: No symptoms reported Genitourinary: No symptoms reported Female Genitourinary: No symptoms reported Musculoskeletal: No symptoms reported Skin: No symptoms reported Hematologic/Lymphatic: No symptoms reported Neurological/Psychological: No symptoms reported -: Yes All other systems reviewed and negative Physical Exam - Vital signs Vitals: Temp Pulse Resp BP Pulse Ox 98.5 F 93 16 127/73 H 97 07/21/18 09:40 07/21/18 09:40 07/21/18 09:40 07/21/18 09:40 07/21/18 09:40 Interpretation: Normal - General General appearance: Appears well, Alert - HEENT Head: Normocephalic, Atraumatic Eyes: Normal Pupils: PERRL Ears: Normal External canal: Normal Tympanic membrane: Normal Sinus: Normal Nasal: Normal Mouth/Lips: Normal Mucous membranes: Normal Pharynx: Post nasal drainage Neck: Normal - Respiratory Respiratory status: No respiratory distress Chest status: Nontender Breath sounds: Nonproductive cough Chest palpation: Normal - Cardiovascular Rhythm: Regular Heart sounds: Normal auscultation Murmur: No - Abdominal Inspection: Normal Distension: No distension Bowel sounds: Normal Tenderness: Nontender Organomegaly: No organomegaly - Back Back: Normal, Nontender - Extremities General upper extremity: Normal inspection, Nontender, Normal color, Normal ROM, Normal temperature General lower extremity: Normal inspection, Nontender, Normal color, Normal ROM, Normal temperature, Normal weight bearing. No: Gris's sign - Neurological Neuro grossly intact: Yes Cognition: Normal Orientation: AAOx4 Arthur Coma Scale Eye Opening: Spontaneous Arthur Coma Scale Verbal: Oriented Arthur Coma Scale Motor: Obeys Commands [place] Coma Scale Total: 15 Speech: Normal Motor strength normal: LUE, RUE, LLE, RLE Sensory: Normal - Psychological Associated symptoms: Normal affect, Normal mood - Skin Skin Temperature: Warm Skin Moisture: Dry Skin Color: Normal Course - Re-evaluation Re-evalutation: 07/21/18 10:48 After performing a Medical Screening Examination, I estimate there is LOW risk for ACUTE CORONARY SYNDROME, RESPIRATORY FAILURE, SEPSIS OR MENINGITIS, thus I consider the discharge disposition reasonable. I have reevaluated this patient multiple times and no significant life threatening changes are noted. The patient and I have discussed the diagnosis and risks, and we agree with discharging home with close follow-up. We also discussed returning to the Emergency Department immediately if new or worsening symptoms occur. We have discussed the symptoms which are most concerning (e.g., changing or worsening pain, trouble swallowing or breathing, neck stiffness, fever) that necessitate immediate return. - Vital Signs Vital signs: Temp Pulse Resp BP Pulse Ox 98.5 F 86 18 127/86 H 100 07/21/18 10:50 07/21/18 10:50 07/21/18 10:50 07/21/18 10:50 07/21/18 10:50 Discharge - Discharge Clinical Impression: URI (upper respiratory infection) Qualifiers: URI type: unspecified viral URI Qualified Code(s): J06.9 - Acute upper respiratory infection, unspecified Condition: Stable Disposition: HOME, SELF-CARE Instructions: Family Physicians / Practices Additional Instructions: UPPER RESPIRATORY ILLNESS: You have a viral infection of the respiratory passages -- a "cold." This common infection causes nasal congestion, drainage, and often sore throat and cough. It is highly contagious. The disease usually lasts about 10 to 14 days. There is no "cure" for the viral infection -- it must run its course. If there is a complication, such as bacterial infection in the nose, sinuses, middle ear, or bronchial tubes, antibiotics may be required. The antibiotics won't affect the virus. Drink plenty of fluids. A humidifier may help. An expectorant medication or decongestant may make you more comfortable. Use acetaminophen or ibuprofen for fever or aches. See the doctor if fever persists over two days, if there is any significant worsening of your symptoms, or if you simply fail to improve as expected. DECONGESTANT MEDICATION: A decongestant medicine has been suggested. Often this medicine is combined in the same tablet with an antihistamine or expectorant. This type of medicine is helpful in treating a bad cold or sinus condition, as well as in treatment of the nasal congestion of hay fever. It is not of much benefit for lung infections. Decongestant medicines are related to stimulants. They can cause an increase in blood pressure and heart rate. Persons with heart disease and high blood pressure should not take decongestants without discussing this with the physician. If you develop palpitations, chest pain, headache, or tremors, stop the medicine and consult your physician. COUGH-SUPPRESSANT & EXPECTORANT MEDICATION: You are to use a cough medication as needed for relief of symptoms. This medicine is a combination of an expectorant (to make the mucous thinner and more easily "coughed up") and a cough suppressant (to reduce the frequency of coughing). The cough-suppressant medicine is related to narcotics. You may experience mild nausea and sleepiness. Some patients who are very sensitive to narcotics may have stomach pain from this medicine. Taking the medicine with food reduces these side effects. Do not drive or work with machinery until you know how this medicine affects you. The expectorant should have no side effects. Iodine-containing e xpectorants (such as organidin) should not be taken by persons with active thyroid disease unless approved by your doctor. Call the doctor if you develop shortness of breath, hives, rash, itching, lightheadedness, or severe nausea and vomiting. USE OF ACETAMINOPHEN (Tylenol): Acetaminophen may be taken for pain relief or fever control. It's much safer than aspirin, offering a wider range of "safe" dosages. It is safe during . Some brand names are Tylenol, Panadol, Datril, Anacin 3, Tempra, and Liquiprin. Acetaminophen can be repeated every four hours. The following are maximum recommended dosages: >89 pounds or adults 650 mg to 900 mg Acetaminophen can be repeated every four hours. Maximum dose not to exceed 4000 mg a day. You have been treated with Claritin 10 mg, Sudafed 30 mg, Mucinex 600 mg in the emergency room. These are all [id number] medications that you can get at the drugstore. You can also use Flonase nasal spray which is [id number] use according to box instructions. You can also use Chloraseptic spray which will help with your sore throat. Also use salt and soda solution gargles which will help with the drainage in the back your throat which will decrease her cough. Salt and soda solution 1 quart of water 1 tablespoon of salt 1 teaspoon of baking soda Mixed 3 ingredients together and boil for 1 minute Placed in a covered quart jar Use 1/2 ounce of cold solution to gargle 3 times a day FOLLOW-UP CARE: If you have been referred to a physician for follow-up care, call the physicians office for an appointment as you were instructed or within the next two days. If you experience worsening or a significant change in your symptoms, notify the physician immediately or return to the Emergency Department at any time for re-evaluation. Forms: Elevated Blood Pressure, Return to Work
[2018-07-21 10:52] VITALS: BP 127/86
== END 2018-07-21 10:50 | disposition home or self-care (01) ==
LOC: ER 09:19
DX: J06.9 Acute upper respiratory infection, unspecified (principal); B97.89 Other viral agents as the cause of diseases classified elsewhere; R05 Cough; R09.82 Postnasal drip; J02.9 Acute pharyngitis, unspecified; J34.89 Other specified disorders of nose and nasal sinuses; R09.81 Nasal congestion; J45.909 Unspecified asthma, uncomplicated; Z87.01 Personal history of pneumonia (recurrent); Z88.1 Allergy status to other antibiotic agents
CPT/HCPCS: 99283

== ENCOUNTER 2018-09-27 11:40 | Emergency (ER) | payer SELFPAY ==
--- NOTE | 2018-09-27 11:54 | ER Document Report ---
ED Medical Screen (RME) - General Chief Complaint: Flank Pain Stated Complaint: BACK PAIN Time Seen by Provider: 09/27/18 11:51 TRAVEL OUTSIDE OF THE [place] IN LAST 30 DAYS: No COUNTRY TRAVELED TO/FROM: [facility] Notes: 09/27/18 11:53 Patient is a 27-year-old female with a history of uterine fibroid, asthma, anemia, ovarian cyst, morbid obesity who presents complaining of right lower back pain that does not radiate and bilateral lower pelvic pain has been present for the past 4 days. She is urinating normally and having normal bowel movements. Last menstrual period was earlier this month. No other concerns or complaints. Denies [place], fever, neck pain, URI, CP, SOB, Abd pain, dysuria, back pain, or rash. I have treated and performed a rapid initial assessment of this patient. A comprehensive ED assessment and evaluation of the patient, analysis of test results and completion of medical decision making process will be conducted by additional ED providers. PHYSICAL EXAMINATION: GENERAL: Well-appearing, well-nourished and in no acute distress. A&Ox4. Answers questions appropriately. LUNGS: Breath sounds clear to auscultation bilaterally and equal. No wheezes rales or rhonchi. HEART: Regular rate and rhythm without murmurs, rubs, gallops. - Related Data Allergies/Adverse Reactions: azithromycin [From Zithromax Z-Lukas] Allergy (Verified 09/27/18 11:41) Past Medical History Pulmonary Medical History: Reports: Hx Asthma, Hx Bronchitis, Hx Pneumonia Neurological Medical History: Reports: Hx Migraine Renal/ Medical History: Reports: Hx Ovarian Cysts. Denies: Hx Peritoneal Dialysis Musculoskeltal Medical History: Reports Hx Musculoskeletal Deformity, Reports Hx Musculoskeletal Trauma Psychiatric Medical History: Reports: Hx Anxiety, Hx Depression - anxiety Past Surgical History: Reports: Hx Section - x 2, Hx Orthopedic Surgery - Axilla abscess removal - Immunizations Immunizations up to date: No Hx Diphtheria, Pertussis, Tetanus Vaccination: No History of Influenza Vaccine for 01/2017 - 06/2017 Season: No Physical Exam - Vital signs Vitals: Temp Pulse Resp BP Pulse Ox 98.6 F 105 H 20 141/94 H 98 09/27/18 11:45 09/27/18 11:45 09/27/18 11:45 09/27/18 11:45 09/27/18 11:45 Course - Vital Signs Vital signs: Temp Pulse Resp BP Pulse Ox 98.6 F 105 H 20 141/94 H 98 09/27/18 11:45 09/27/18 11:45 09/27/18 11:45 09/27/18 11:45 09/27/18 11:45
[2018-09-27 12:39] LABS: APPEARANCE,URINE CLOUDY; BILIRUBIN,URINE NEGATIVE (NEGATIVE); COLOR,URINE YELLOW; GLUCOSE, URINE NEGATIVE (NEGATIVE); KETONES,URINE NEGATIVE (NEGATIVE); LEUKOCYTE ESTERASE,URINE NEGATIVE (NEGATIVE); NITRITE,URINE NEGATIVE (NEGATIVE); PROTEIN,URINE NEGATIVE (NEGATIVE); URINE SPECIFIC GRAVITY 1.015; UROBILINOGEN,URINE NEGATIVE mg/dL (<2.0)
[2018-09-27 14:34] LABS: ABSOLUTE BASOPHILS # (AUTO) 0.1 10^3/uL (0.0-0.2); ABSOLUTE EOSINOPHILS # (AUTO) 0.2 10^3/uL (0.0-0.6); ABSOLUTE LYMPHOCYTES (AUTO) 2.2 10^3/uL (0.5-4.7); ABSOLUTE MONOCYTES (AUTO) 0.7 10^3/uL (0.1-1.4); ABSOLUTE NEUT (AUTO) 3.1 10^3/uL (1.7-8.2); BASOPHILS % (AUTO) 1.1 % (0-2); HEMATOCRIT 30.5 % (36.0-47.0); LYMPHOCYTES % (AUTO) 35.1 % (13-45); MEAN CORPUSCULAR HGB CONC 29.6 g/dL (32.0-36.0); MEAN CORPUSCULAR VOLUME 64 fl (80-97); MONOCYTES % (AUTO) 10.9 % (3-13); PLATELET COUNT 202 10^3/uL (150-450); RED BLOOD COUNT 4.77 10^6/uL (3.72-5.28); RED CELL DISTRIBUTION WIDTH 17.6 % (11.5-14.0); SEGMENTED NEUTROPHILS % (AUTO) 49.9 % (42-78); TOTAL CELLS COUNTED % (AUTO) 100 %; WHITE BLOOD COUNT 6.2 10^3/uL (4.0-10.5)
[2018-09-27 14:43] LABS: ALANINE AMINOTRANSFERASE 14 U/L (9-52); ALBUMIN 3.9 g/dL (3.5-5.0); ALKALINE PHOSPHATASE 57 U/L (38-126); ANION GAP 7 (5-19); ASPARTATE AMINO TRANSFERASE 16 U/L (14-36); BILIRUBIN,DIRECT 0.2 mg/dL (0.0-0.4); BILIRUBIN,TOTAL 0.2 mg/dL (0.2-1.3); BLOOD UREA NITROGEN 10 mg/dL (7-20); CALCIUM 9.1 mg/dL (8.4-10.2); CARBON DIOXIDE 24 mmol/L (22-30); CHLORIDE 106 mmol/L (98-107); GLUCOSE 77 mg/dL (75-110); POTASSIUM 4.3 mmol/L (3.6-5.0); SODIUM 137.2 mmol/L (137-145); TOTAL PROTEIN 7.9 g/dL (6.3-8.2)
[2018-09-27 14:55] LABS: ANISOCYTOSIS 1+; HYPOCHROMASIA 3+; OVALOCYTES 1+; PLATELET COMMENT ADEQUATE; POIKILOCYTOSIS 1+; POLYCHROMASIA SLIGHT; TEAR DROP CELLS SLIGHT
--- NOTE | 2018-09-27 15:38 | RADIOLOGY REPORT (SQ) ---
EXAM DESCRIPTION: U/S NON OB PEL TV W/DOPPLER COMPLETED DATE/TIME: 09/27/2018 3:20 pm REASON FOR STUDY: b/l pelvic pain COMPARISON: 08/04/2018 TECHNIQUE: Dynamic and static grayscale images acquired of the pelvis via transvaginal approach and recorded on PACS. Additional selected color Doppler and spectral images recorded. LIMITATIONS: Limited due to body habitus. FINDINGS: UTERUS: Contour normal. No mass identified. ENDOMETRIAL STRIPE: No focal or generalized thickening. No masses. CERVIX: No nabothian cysts. RIGHT OVARY AND DOPPLER: Ovary not visualized. LEFT OVARY AND DOPPLER: Ovary not visualized. FREE FLUID: None noted. OTHER: No other significant finding. MEASUREMENTS: UTERUS: 10.5 x 6.0 x 4.9 cm ENDOMETRIAL STRIPE: 10 mm RIGHT OVARY: Not visualized. LEFT OVARY: Not visualized. IMPRESSION: Nonvisualized ovaries. TECHNICAL DOCUMENTATION: JOB ID: [id number] [place]-72 2010 [employer]- All Rights Reserved Rev-08/22 Reading location - IP/workstation name: [email or web address]
[2018-09-27 15:48] LABS: BACTERIA (WET MOUNT) 3+ BACTERIA SEEN; EPITHELIALS (WET MOUNT) 3+ EPITHELIALS SEEN; RBCS (WET MOUNT) RARE RBCS SEEN; T.VAGINALIS (WET MOUNT) NO TRICHOMONAS SEEN; WBCS (WET MOUNT) 1+ WBCS SEEN; YEAST (WET MOUNT) NO YEAST SEEN
[2018-09-27 17:52] LABS: CHLAM PCR NOT DETECTED (NOT DETECT)
[2018-09-27] MEDS ORDERED: KETOROLAC TROMETHAMINE INJ/PF 30 MG/1 ML SDV IV ONE (18:06)
[2018-09-27] MEDS ORDERED: METHOCARBAMOL 750 MG TABLET PO ONE (18:28)
--- NOTE | 2018-09-27 18:29 | ER Document Report ---
Entered by VERO WATERS SCRIBE 09/27/18 1556 Acting as scribe for:CINDY DE LA VEGA DO ED General - General Chief Complaint: Flank Pain Stated Complaint: BACK PAIN Time Seen by Provider: 09/27/18 11:51 Mode of Arrival: Ambulatory Information source: Patient Notes: Patient is a 27-year-old female with asthma presents emergency department complaining of right-sided back pain and pelvic pain onset 3 days ago. Patient states she was recently diagnosed with a ruptured cyst and uterine fibroid and expresses concern for this causing her symptoms. Patient also complains of chest pain, chills, nausea and diarrhea. She describes the chest pain as being intermittent located in the middle of her chest. She states that her chest pain was similar to her anxiety but different. She denies any recent rashes, fevers, trouble breathing, vomiting, vaginal discharge, vaginal bleeding or saddle anesthesia. Patient states that she has a very heavy periods and currently takes iron pills. She states she feels the iron pills do no help because her menstrual cycle is so heavy. TRAVEL OUTSIDE OF THE [place] IN LAST 30 DAYS: No COUNTRY TRAVELED TO/FROM: [place] - Related Data Allergies/Adverse Reactions: azithromycin [From Zithromax Z-Lukas] Allergy (Verified 09/27/18 11:41) Past Medical History - General Information source: Patient - Social History Smoking Status: Never Smoker Cigarette use (# per day): No Chew tobacco use (# tins/day): No Frequency of alcohol use: None Drug Abuse: None Family History: Arthritis, CAD - Patient's father had CABG in his 40s, DM, Hyperlipidemia, Hypertension, Malignancy Patient has suicidal ideation: No Patient has homicidal ideation: No Pulmonary Medical History: Reports: Hx Asthma, Hx Bronchitis, Hx Pneumonia Neurological Medical History: Reports: Hx Migraine Renal/ Medical History: Reports: Hx Ovarian Cysts Musculoskeletal Medical History: Reports Hx Musculoskeletal Deformity, Reports Hx Musculoskeletal Trauma Psychiatric Medical History: Reports: Hx Anxiety, Hx Depression - anxiety Past Surgical History: Reports: Hx Section - x 2, Hx Orthopedic Surgery - Axilla abscess removal - Immunizations Immunizations up to date: No Hx Diphtheria, Pertussis, Tetanus Vaccination: No Hx Pneumococcal Vaccination: 04/07/00 Review of Systems - Review of Systems Constitutional: See HPI, Chills EENT: No symptoms reported Cardiovascular: See HPI, Chest pain Respiratory: No symptoms reported Gastrointestinal: See HPI, Abdominal pain, Diarrhea, Nausea Genitourinary: No symptoms reported Female Genitourinary: See HPI, Heavy/abnormal periods Musculoskeletal: See HPI, Back pain Skin: No symptoms reported Hematologic/Lymphatic: No symptoms reported Neurological/Psychological: No symptoms reported -: Yes All other systems reviewed and negative Physical Exam - Vital signs Vitals: Temp Pulse Resp BP Pulse Ox 98.6 F 105 H 20 141/94 H 98 09/27/18 11:45 09/27/18 11:45 09/27/18 11:45 09/27/18 11:45 09/27/18 11:45 - Notes Notes: GENERAL: Alert, interacts well. No acute distress. HEAD: Normocephalic, atraumatic. EYES: Pupils equal, round, and reactive to light. Extraocular movements intact. ENT: Oral mucosa moist, tongue midline. NECK: Full range of motion. Supple. Trachea midline. LUNGS: Clear to auscultation bilaterally, no wheezes, rales, or rhonchi. No respiratory distress. HEART: Regular rate and rhythm. No murmurs, gallops, or rubs. ABDOMEN: Soft, obese, non-tender. Non-distended. Bowel sounds present in all 4 quadrants. No guarding, rigidity, or rebound. EXTREMITIES: Moves all 4 extremities spontaneously. No edema, radial and dorsalis pedis pulses 2/4 bilaterally. No cyanosis. Negative straight leg ra ising bilaterally. Sensations intact. NEUROLOGICAL: Alert and oriented x3. Normal speech. PSYCH: Normal affect, normal mood. SKIN: Warm, dry, normal turgor. No rashes or lesions noted. BACK: Tender to palpate the top of the sacrum on the right and to the right buttocks. No CVA tenderness to percussion. PELVIC: Normal introitus. No vaginal discharge. No adnexal tenderness palpation, no cervical tenderness to palpation. Course - Re-evaluation Re-evalutation: 09/27/18 18:06 CBC shows anemia with hemoglobin 9.0, patient tends to run around this level, CMP unremarkable, urinalysis unremarkable, no signs of blood or infection, test is negative, wet prep does not show any signs of trichomonas or yeast, pelvic exam not consistent with bacterial vaginosis, gonorrhea and Chlamydia are negative, transvaginal ultrasound is nondiagnostic however the patient's pain is really less abdominal and more right flank and buttock, it is reproducible on palpation of her right buttock. At this time I feel this is more musculoskeletal in nature, patient will be treated with anti-inflammatories and with muscle relaxers and discharged home. - Vital Signs Vital signs: Temp Pulse Resp BP Pulse Ox 98.6 F 105 H 20 141/94 H 98 09/27/18 11:45 09/27/18 11:45 09/27/18 11:45 09/27/18 11:45 09/27/18 11:45 - Laboratory Result Diagrams: 09/27/18 14:16 09/27/18 14:16 Laboratory results interpreted by me: 09/27/18 09/27/18 12:28 14:16 Hgb 9.0 L Hct 30.5 L MCV 64 L MCH 19.0 L MCHC 29.6 L RDW 17.6 H Urine Ascorbic Acid 20 H Discharge - Discharge Clinical Impression: Acute right flank pain, Chronic anemia Muscle strain of right gluteal region Qualifiers: Encounter type: initial encounter Qualified Code(s): S76.011A - Strain of muscle, fascia and tendon of right hip, initial encounter Condition: Stable Disposition: HOME, SELF-CARE Additional Instructions: Today we did not find any signs of infection. Your pain is reproducible on examination, I suspect her pain is actually coming from a strained or tight muscle in your right low back and buttock. I have prescribed muscle relaxers. You should also use ibuprofen 800 mg every 8 hours as needed for pain. You may also use acetaminophen 1000 mg every 6 hours as needed for pain. Please follow-up with your E[facility] TECHNIC[facility] as an outpatient to further discuss your heavy periods and her chronic anemia. In addition to taking iron every day they may wish to consider starting you on control pills or other hormonal treatment to decrease the heaviness of your bleeding during your regular menstrual cycles. Please return to the emergency department for fevers, chills, nausea, vomiting, diarrhea, fevers or numbness or tingling or any new or concerning symptoms. Prescriptions: Methocarbamol [Robaxin 750 mg Tablet] 750 mg PO ASDIR PRN #40 tablet PRN Reason: Forms: Return to Work I personally performed the services described in the documentation, reviewed and edited the documentation which was dictated to the scribe in my presence, and it accurately records my words and actions.
[2018-09-27] MEDS ORDERED: KETOROLAC TROMETHAMINE 60 MG/2 ML SDV IM ONE (18:37)
[2018-09-27 18:44] VITALS: BP 138/91
== END 2018-09-27 18:54 | disposition home or self-care (01) ==
LOC: ER 11:40
DX: D64.89 Other specified anemias (principal); R10.9 Unspecified abdominal pain; R07.9 Chest pain, unspecified; R68.83 Chills (without fever); R19.7 Diarrhea, unspecified; R11.0 Nausea; S76.011A Strain of muscle, fascia and tendon of right hip, initial encounter; X58.XXXA Exposure to other specified factors, initial encounter; Z88.3 Allergy status to other anti-infective agents
CPT/HCPCS: 99284; 96372; 36415; 87210; 85025; 81025; 80053; 81001; 87491; 87591; 76830; 93976; J1885; J3490

== ENCOUNTER 2018-10-15 12:45 | Emergency (ER) | payer SELFPAY ==
[2018-10-15 12:59] VITALS: BP 108/69
--- NOTE | 2018-10-15 14:03 | ER Document Report ---
HPI - HPI Time Seen by Provider: 10/15/18 13:44 Pain Level: 3 Context: Patient is a 28-year-old female with a history of asthma who presents to the emergency department with a chief complaint of productive cough for 2 days. Patient states that on Friday she developed generalized aches and chills. Patient states she developed a productive cough with green phlegm. Patient states she has also had thick green discharge coming from her nostrils. 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 Patient states that she has used her Flonase nasal spray yesterday which did seem to help with her symptoms. Patient states she does have a history of asthma in which she takes Pulmicort, albuterol inhalers as needed and albuterol nebulizers. Patient states she has not needed these more frequently than normal but did use an albuterol inhaler with some relief this morning. Patient states she has vomited 4 times. Patient states that the vomiting occurs when she gets into coughing fits. Patient states she also used [id number] Robitussin with help. She denies fevers. Patient denies abdominal pain. Patient reports rib pain and abdominal pain with cough only. - CONSTITUTIONAL Constitutional: REPORTS: Chills. DENIES: Fever - EENT EENT: REPORTS: Sore Throat. DENIES: Eye problems - NEURO Neurology: REPORTS: Headache. DENIES: Weakness, Vision blurred, Dizzinesss / Vertigo - CARDIOVASCULAR Cardiovascular: DENIES: Chest pain - RESPIRATORY Respiratory: REPORTS: Coughing. DENIES: Trouble Breathing - URINARY Urinary: DENIES: Dysuria, Urgency, Frequency - REPRODUCTIVE Reproductive: DENIES: : - MUSCULOSKELETAL Musculoskeletal: DENIES: Extremity pain Past Medical History - General Information source: Patient - Social History Smoking Status: Unknown if Ever Smoked Chew tobacco use (# tins/day): No Frequency of alcohol use: None Drug Abuse: None Family History: Arthritis, CAD - Patient's father had CABG in his 40s, DM, Hyperlipidemia, Hypertension, Malignancy Patient has suicidal ideation: No Patient has homicidal ideation: No - Past Medical History Cardiac Medical History: Reports: None Pulmonary Medical History: Reports: Hx Asthma, Hx Bronchitis, Hx Pneumonia EENT Medical History: Reports: None Neurological Medical History: Reports: Hx Migraine Endocrine Medical History: Reports: None Renal/ Medical History: Reports: Hx Ovarian Cysts. Denies: Hx Peritoneal Dialysis Malignancy Medical History: Reports: None GI Medical History: Reports: None Musculoskeletal Medical History: Reports Hx Musculoskeletal Deformity, Reports Hx Musculoskeletal Trauma Psychiatric Medical History: Reports: Hx Anxiety, Hx Depression - anxiety Traumatic Medical History: Reports: None Infectious Medical History: Reports: None Past Surgical History: Reports: Hx Section - x 2, Hx Orthopedic Surgery - Axilla abscess removal - Immunizations Immunizations up to date: No Hx Diphtheria, Pertussis, Tetanus Vaccination: No Hx Pneumococcal Vaccination: 04/07/00 Vertical Provider Document - CONSTITUTIONAL Agree With Documented VS: Yes Exam Limitations: No Limitations General Appearance: No Apparent Distress Notes: GENERAL: Well-appearing, well-nourished and in no acute distress. HEAD: Atraumatic, normocephalic. EYES: Pupils equal round and reactive to light, extraocular movements intact, sclera anicteric, conjunctiva are normal. ENT: TMs normal, nares patent, oropharynx clear without exudates. Moist mucous membranes. NECK: Normal range of motion, supple without lymphadenopathy or JVD. LUNGS: Breath sounds clear to auscultation bilaterally and equal. No wheezes rales or rhonchi. HEART: Regular rate and rhythm without murmurs, rubs or gallops. ABDOMEN: Soft, obese, nontender, normoactive bowel sounds. No guarding, no rebound. No masses appreciated. BACK: No cervical, thoracic, lumbar midline tenderness. No saddle anesthesia, normal distal neurovascular exam. GENITOURINARY: Deferred. EXTREMITIES: Normal range of motion, no pitting or edema. No clubbing or cyanosis. NEUROLOGICAL: Cranial nerves II through XII grossly intact. Normal speech, n ormal gait. PSYCH: Normal mood, normal affect. SKIN: Warm, Dry, normal turgor, no rashes or lesions noted. - INFECTION CONTROL TRAVEL OUTSIDE OF THE [place] IN LAST 30 DAYS: No COUNTRY TRAVELED TO/FROM: [place] Course - Re-evaluation Re-evalutation: 10/15/18 14:00 Initial evaluation patient is resting comfortably on stretcher. And is nontoxic-appearing. After physical examination I do not believe patient needs a chest x-ray. I did discuss this with her as she states she probably has a viral bronchitis. She agrees with the treatment plan to include Tessalon Perles for her cough, Tylenol and ibuprofen for her body aches and she will continue to use her breathing treatments at home as needed. Patient denies any nausea or abdominal pain. I did inform the patient that bronchitis can last weeks but if she develops high fevers, inability to tolerate liquids or food or any other concerning signs or symptoms to return to the emergency department. Repeat vital signs show a heart rate of 95 and oxygen saturation of 97% on room air. Did have intermittent congestive nonproductive cough during the assessment. - Vital Signs Vital signs: Temp Pulse Resp BP Pulse Ox 98.9 F 114 H 18 108/69 96 10/15/18 12:57 10/15/18 12:57 10/15/18 12:57 10/15/18 12:57 10/15/18 12:57 Discharge - Discharge Clinical Impression: Bronchitis, Productive cough Condition: Stable Disposition: HOME, SELF-CARE Additional Instructions: Today you were seen in the emergency department for cough. Your symptoms are consistent with bronchitis. Bronchitis is typically viral and do not require antibiotics. Please take the Tessalon Perles as needed for your cough. Please continue to sip on clear liquids. Please use a coolmist humidifier as this may make your lungs more comfortable. Continue to use Robitussin, your Flonase as this did seem to help with your symptoms at home. Please return to the emergency department for fever, shortness of breath, chest pain, bloody sputum, high fevers or inability to tolerate liquids. Please continue to use your albuterol inhaler as needed. You can use other nonpharmacological therapies for your cough such as throat lozenges, hot tea, honey. Bronchitis You have acute bronchitis. This disease is an infection or inflammation of the air passageways in your lungs. Symptoms usually include cough, low grade fever, shortness of breath, and wheezing. The cough usually persists for a couple of weeks. Most cases of bronchitis get better without antibiotics. We prescribe antibiotics when we believe bacteria are damaging your airways, or if there's high risk the bronchitis will worsen into pneumonia. Increase your fluid intake. A cool mist humidifier may make your lungs more comfortable. An expectorant (cough medicine that loosens phlegm) can help. If you smoke, STOP!!! Recovery from bronchitis can be somewhat slow, but you should see improvement within a day or two. Repeated episodes of bronchitis may result in lung damage -- for example, chronic bronchitis, recurrent pneumonias, or emphysema. Call the doctor if you develop increasing fever, shortness of breath, chest pain, bloody sputum, or otherwise worsen. If you have not improved at all after several days, contact the physician. Prescriptions: Benzonatate [Tessalon Perles 100 mg Capsule] 100 mg PO Q8HP PRN #40 capsule PRN Reason: Forms: Return to Work
[2018-10-15] MEDS ORDERED: BENZONATATE 100 MG CAPSULE PO ONE (14:05)
== END 2018-10-15 14:17 | disposition home or self-care (01) ==
LOC: ER 12:45
DX: J45.909 Unspecified asthma, uncomplicated (principal); R05 Cough; M79.10 Myalgia, unspecified site; J02.9 Acute pharyngitis, unspecified; R51 Headache; Z79.899 Other long term (current) drug therapy
CPT/HCPCS: 99283

== ENCOUNTER 2018-11-18 09:52 | Emergency (ER) | payer MEDICAID, OTHER ==
[2018-11-18] MEDS ORDERED: ACETAMINOPHEN 325 MG TABLET PO ONE (10:20)
--- NOTE | 2018-11-18 10:20 | ER Document Report ---
HPI - HPI Time Seen by Provider: 11/18/18 10:15 Pain Level: 4 Notes: Patient is a 28-year-old female with history of asthma and morbid obesity who presents complaining of left lateral ankle pain status post twist injury yesterday while at work. 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 Patient states that she has been able to limp since then. She has not noticed any bruising. No other concerns or complaints. Denies any headache, fever, head injury, neck pain, URI, sore throat, chest pain, palpitations, syncope, cough, shortness of breath, wheeze, dyspnea, abdominal pain, nausea/vomiting/diarrhea, urinary retention, dysuria, hematuria, loss of control of bowel or bladder, numbness/tingling, saddle anesthesia, muscle paralysis/weakness, or rash. - ROS Systems Reviewed and Negative: Yes All other systems reviewed and negative - REPRODUCTIVE Reproductive: DENIES: : Past Medical History - Social History Smoking Status: Never Smoker Family History: Arthritis, CAD - Patient's father had CABG in his 40s, DM, Hype rlipidemia, Hypertension, Malignancy Pulmonary Medical History: Reports: Hx Asthma, Hx Bronchitis, Hx Pneumonia Neurological Medical History: Reports: Hx Migraine Renal/ Medical History: Reports: Hx Ovarian Cysts. Denies: Hx Peritoneal Dialysis Musculoskeletal Medical History: Reports Hx Musculoskeletal Deformity, Reports Hx Musculoskeletal Trauma Psychiatric Medical History: Reports: Hx Anxiety, Hx Depression - anxiety Past Surgical History: Reports: Hx Section - x 2, Hx Orthopedic Surgery - Axilla abscess removal - Immunizations Immunizations up to date: No Hx Diphtheria, Pertussis, Tetanus Vaccination: No Hx Pneumococcal Vaccination: 04/07/00 Vertical Provider Document - CONSTITUTIONAL Agree With Documented VS: Yes Notes: PHYSICAL EXAMINATION: GENERAL: Well-appearing, well-nourished and in no acute distress. LUNGS: Breath sounds clear to auscultation bilaterally and equal. No wheezes rales or rhonchi. HEART: Regular rate and rhythm without murmurs, rubs, gallops. Musculoskeletal: Lt foot/ankle: + mild lateral ankle swelling. No ecchymosis or deformity. FROM to passive/active dorsiflexion. Strength 5+/5. N/V intact distal. + tenderness to the lateral malleolus and area of the ATFL. No bony tenderness of the foot. Achilles intact. Lis Franc maneuver neg. Anterior drawer neg. Extremities: No cyanosis, clubbing, or edema b/l. Peripheral pulses 2+. Capillary refill less than 3 seconds. NEUROLOGICAL: Normal speech, limping gait. Normal sensory, motor exams PSYCH: Normal mood, normal affect. SKIN: Warm, Dry, normal turgor, no rashes or lesions noted. - INFECTION CONTROL TRAVEL OUTSIDE OF THE [place] IN LAST 30 DAYS: No COUNTRY TRAVELED TO/FROM: [facility] Course - Re-evaluation Re-evalutation: 11/18/18 10:56 Patient is an afebrile, well-hydrated, 28-year-old female who presents to the ED with left ankle pain which I suspect to be a sprain versus strain. Vitals are acceptable without any significant tachycardia, tachypnea, or hypoxia. PE is otherwise unremarkable for any neurovascular compromise, obvious tendon/ligament rupture, obvious fracture/dislocation, septic joint. X-ray was unremarkable for any acute pathology. Ankle stirrup provided today. Patient declined crutches. Tylenol given p.o. Patient is nontoxic-appearing. Patient is able to ambulate and weight-bear although she is limping. No other labs or imaging warranted at this time based on H&P. Conservative measures otherwise for symptoms. Recheck with your PCM in 3-5 days. Consider consult orthopedics. Return to the ED with any worsening/concerning symptoms otherwise as reviewed in discharge. Patient is in agreement. - Vital Signs Vital signs: Temp Pulse Resp BP Pulse Ox 97.5 F 97 16 142/88 H 99 11/18/18 09:57 11/18/18 09:57 11/18/18 09:57 11/18/18 09:57 11/18/18 09:57 Discharge - Discharge Clinical Impression: Left ankle pain Qualifiers: Chronicity: acute Qualified Code(s): M25.572 - Pain in left ankle and joints of left foot Condition: Stable Disposition: HOME, SELF-CARE Additional Instructions: Rest, Ice, Compression, Elevation Tylenol/ibuprofen as needed Light stretches daily Strength exercises as able Moist heat and massage may help F/u with your PCP in 3-5 days for a recheck Consider consult(s) with Orthopedics/physical therapy for ongoing/worsening symptoms Return to the ED with any worsening symptoms and/or development of fever, headache, chest pain, palpitations, syncope, shortness of breath, trouble breathing, abdominal pain, n/v/d, muscle weakness/paralysis, numbness/tingling, swelling, redness, or other worsening symptoms that are concerning to you. Prescriptions: Ibuprofen [Motrin 800 mg Tablet] 800 mg PO Q8H PRN #15 tab PRN Reason: Forms: Elevated Blood Pressure Referrals: [facility] [Provider Group] - Follow up as needed
--- NOTE | 2018-11-18 10:53 | RADIOLOGY REPORT (SQ) ---
EXAM DESCRIPTION: ANKLE LEFT COMPLETE COMPLETED DATE/TIME: 11/18/2018 10:37 am REASON FOR STUDY: pain s/p injury COMPARISON: None. NUMBER OF VIEWS: Three views. TECHNIQUE: AP, lateral, and oblique radiographic images acquired of the left ankle. LIMITATIONS: None. FINDINGS: MINERALIZATION: Normal. BONES: No acute fracture or dislocation. No worrisome bone lesions. Superior plantar calcaneal enth esophyte. JOINTS: No effusions. SOFT TISSUES: Soft tissue swelling about the ankle, greatest medially. No radiopaque foreign body. OTHER: No other significant finding. IMPRESSION: Soft tissue swelling about the ankle without evidence of acute bony abnormality. TECHNICAL DOCUMENTATION: JOB ID: [id number] [employer]- All Rights Reserved Reading location - IP/workstation name: [email or web address]
[2018-11-18 11:11] VITALS: BP 132/78
== END 2018-11-18 11:14 | disposition home or self-care (01) ==
LOC: ER 09:52
DX: M25.572 Pain in left ankle and joints of left foot (principal); X50.1XXA Overexertion from prolonged static or awkward postures, initial encounter; Y99.0 Civilian activity done for income or pay; E66.01 Morbid (severe) obesity due to excess calories
CPT/HCPCS: 73610; L1902; 99283

== ENCOUNTER 2018-11-22 12:46 | Emergency (ER) | payer SELFPAY ==
[2018-11-22] MEDS ORDERED: NORMAL SALINE 1000 ML 1,000 ML IV ONE (13:40)
--- NOTE | 2018-11-22 13:40 | ER Document Report ---
ED Medical Screen (RME) - General Chief Complaint: Vaginal Bleeding Stated Complaint: VAGINAL BLEEDING Time Seen by Provider: 11/22/18 13:31 Mode of Arrival: Ambulatory Information source: Patient Notes: Patient presents complaining of heavy vaginal bleeding started yesterday. Patient reports feeling lightheaded with chest pain today. Patient also complains of headache pain. Patient states that her last menstrual period was 8/5-8/9 this month already. Patient states she does have a history of uterine fibroids as well as anemia that required a transfusion in the past. I have greeted and performed a rapid initial assessment of this patient. A comprehensive ED assessment and evaluation of the patient, analysis of test results and completion of the medical decision making process will be conducted by additional ED providers. TRAVEL OUTSIDE OF THE [place] IN LAST 30 DAYS: No COUNTRY TRAVELED TO/FROM: [place] - Related Data Allergies/Adverse Reactions: azithromycin [From Zithromax Z-Lukas] Allergy (Verified 11/22/18 12:46) Past Medical History Pulmonary Medical History: Reports: Hx Asthma, Hx Bronchitis, Hx Pneumonia Neurological Medical History: Reports: Hx Migraine Renal/ Medical History: Reports: Hx Ovarian Cysts. Denies: Hx Peritoneal Dialysis Musculoskeltal Medical History: Reports Hx Musculoskeletal Deformity, Reports Hx Musculoskeletal Trauma Psychiatric Medical History: Reports: Hx Anxiety, Hx Depression - anxiety Past Surgical History: Reports: Hx Section - x 2, Hx Orthopedic Surgery - Axilla abscess removal - Immunizations Immunizations up to date: No Hx Diphtheria, Pertussis, Tetanus Vaccination: No History of Influenza Vaccine for 01/2017 - 06/2017 Season: No Physical Exam - Vital signs Vitals: Temp Pulse Resp BP Pulse Ox 97.7 F 99 15 141/83 H 99 11/22/18 13:04 11/22/18 13:04 11/22/18 13:04 11/22/18 13:04 11/22/18 13:04 - General General appearance: Appears well, Alert - Cardiovascular Rhythm: Regular Heart sounds: S1 appreciated, S2 appreciated Course - Vital Signs Vital signs: Temp Pulse Resp BP Pulse Ox 97.7 F 99 15 141/83 H 99 11/22/18 13:04 11/22/18 13:04 11/22/18 13:04 11/22/18 13:04 11/22/18 13:04
--- NOTE | 2018-11-22 14:26 | ER Document Report ---
HPI - HPI Patient complains to provider of: vaginal bleeding Time Seen by Provider: 11/22/18 13:31 Onset: Yesterday Onset/Duration: Gradual Quality of pain: Achy, Cramping Pain Level: 3 Context: 28 yr old female patient, with the listed pmh, here for multiple complaints to include some intermittent lower abdominal cramping she has had for a long time and was told it was secondary to her fibroid uterus, also some vaginal spotting since yest along with a mild martinez and intermittent cp x the last few days. hx of all of these before when she required a blood transfusion. last had blood transfusion 05/2018 and prior to that 02/2018 secondary to menorrhagia. pt states she has two children and has already had a tubal yet her periods haven't slowed down in flow and are always heavy. she is trying to find an obgyn to perform a hysterectomy as she states she is done child bearing. denies heavy vag bleeding now. No abdominal surgeries other than remote tubal ligation. pt states she usually gets dizzy, has a martinez, and this same intermittent, but not present currently cp, when her hbg is low and she needs a blood transfusion. she currently denies any dizziness or acute blood loss sx. denies heavy bleeding or clots. no hx of bleeding or clotting disorder. No history of ovarian cysts, endometriosis, or renal stones. Normal bowel movements. No UTI symptoms. No URI symptoms. No recent antibiotics or steroids. No history of diabetes or asthma. No vaginal discharge/complaints/lesions or concerns for STDs and does not want a pelvic exam. No ripping or tearing sensation. otc meds helping minimally for the pain. no photophobia or phonophobia. martinez is not worst martinez of life. denies sudden onset. has again had similar martinez before in the past. states has had a neg head ct however i do not have access to these records for review. No excessive NSAID use, Tylenol use, or EtOH. No prior history of gallbladder disease, pancreatitis, ulcers, GI bleed, GERD, IBS, Crohn's, or UC. no change in color or caliber or stool. no fall or trauma. no other associated sx. Pt denies any prior personal cardiac history. denies any family history of sudden or cardiac dz at a young age. no syncope. no palpitations. no hx of mi, cva, tia, or cad. No prior history of blood clots. No recent long distance travel/immobilization, recent surgery, exogenous hormone use, hemoptysis, history of cancer, or calf pain/swelling. No prior history of arrhythmias. no other complaints at this time. - ROS Systems Reviewed and Negative: Yes All other systems reviewed and negative - to include 10 systems, unless mentioned in the hpi - REPRODUCTIVE Reproductive: DENIES: : Past Medical History - General Information source: Patient - Social History Smoking Status: Unknown if Ever Smoked Frequency of alcohol use: None Drug Abuse: None Lives with: Family Family History: Arthritis, CAD - Patient's father had CABG in his 40s, DM, Hyperlipidemia, Hypertension, Malignancy Patient has suicidal ideation: No Patient has homicidal ideation: No - Past Medical History Cardiac Medical History: Reports: Hx Atrial Fibrillation, Hx Congestive Heart Failure, Hx Hypercholesterolemia, Hx Hypertension Denies: Hx DVT, Hx Heart Attack, Hx Pulmonary Embolism Pulmonary Medical History: Reports: Hx Asthma, Hx Bronchitis, Hx Pneumonia Neurological Medical History: Reports: Hx Migraine Endocrine Medical History: Reports: None Renal/ Medical History: Reports: Hx Kidney Stones, Hx Ovarian Cysts. Denies: Hx Peritoneal Dialysis Psychiatric Medical History: Reports: Hx Anxiety, Hx Depression Traumatic Medical History: Reports: Hx Spine Fracture, Hx Traumatic Brain Injury Past Surgical History: Reports: Hx Section - x 2, Hx Kidney (Renal Surgery) - nephrectomy- followed closetly on tacrolimus and mtx by , Hx Orthopedic Surgery - Axilla abscess removal, Hx Tubal Ligation - Immunizations Immunizations up to date: Yes Hx Diphtheria, Pertussis, Tetanus Vaccination: Yes Hx Pneumococcal Vaccination: 04/07/00 Vertical Provider Document - CONSTITUTIONAL Exam Limitations: No Limitations Notes: >>>> PHYSICAL_EXAM: GENERAL_APPEARANCE: well_nourished, alert, cooperative, no_acute_distress, no_obvious_discomfort. Pleasant, morbidly obese, young black, female, smiling, speaking in full sentences, in no sign of pain or resp distress, easily sitting up, family at bedside VITALS: reviewed, see vital signs table. HEAD: normocephalic, atraumatic. no dougherty signs. no raccoon eyes. EYES: PERRL, EOMI, (-)scleral icterus. NOSE: no_nasal_discharge. MOUTH: (-)decreased moisture. THROAT: no_tonsilar_inflammation/hypertrophy/exudate NECK: supple, no_neck_tenderness, full rom. full strength. no meningeal signs. no sign of central cord syndrome BACK: no midline_back_tenderness. no step offs or deformities CHEST_WALL: no_chest_tenderness. LUNGS: no_wheezing, (-)accessory muscle use, good air exchange bilateral. HEART: normal_rate, normal_rhythm, ABDOMEN: normal_BS, soft, abdomen-diffuse, non-tender, obese abd, exam some what limited to pts body habitus, (-)guarding, (-)rebound, no distension or peritoneal signs. neg murphys. neg mcburneys. no cva tenderness. neg heel strike. neg obturator. neg psoas. neg rovsign. PELVIC: pt deferred RECTAL: deferred EXTREMITIES: strength 5/5 in all_extremities, good pulses in all_extremities, no_edema, no_swelling\tenderness. full rom. normal gait. 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 brisk c ap refill. SKIN: warm, dry, good_color, no_rash. no grossly visible overlying skin changes to suggest trauma NEURO: motor_intact, sensory_intact. cranial nerves 2-12 intact, cerebellar fxn intact MENTAL_STATUS: normal_affect, speech_clear, oriented_X_3, responds_appropriately to questions. - INFECTION CONTROL TRAVEL OUTSIDE OF THE [place] IN LAST 30 DAYS: No COUNTRY TRAVELED TO/FROM: [place] - HEENT HEENT: Dental Injury, Tympanic Membrane Bulging - pt has a hyphema to the right anterior chamber of the cornea. have B work lis but he needs to make sure if runs in yours. Course - Re-evaluation Re-evalutation: pt here for multiple complaints, ongoing for a while, likely dysfunctional uterine bleeding and symptomatic anemia mostly. she labs notable for a mild chronic anemia, slightly lower at 8.4 from prior of 12 about a month ago pre-op prior to her knee replacement. states the knee is fine now, denies any compl ications with it other than pain over the anterior 1/3 of the bus then u can tell me. there are no signs of trauma in the extremities or post op complications or cellulitis. pt may have bilat, corneal ulcers and they rarely take them out, when i got this but now im out of the area. she advised to f/u with pcp in 1-2 days. will dc with doxy. advised sx care. ice/heat to her back. she can cont to take the mobic she has at home. return for any worsening symptoms. vss. well appearing. satting well on ra. neurononfocal. pt understands and agrees to plan. she has no meningeal signs. no signs of central cord syndrome. no sign of cauda equina. On reexam, pt improved with tx listed. remained stable. nontoxic. well appearing. pain controlled. tolerating po. requesting to go home. serial abd exams remain benign. case discussed with ER Attending, Dr. hassan, who directed and agrees with plan of care and advised no further workup indicated at this time and pt is stable for dc home with close f/u with pcp/specialist. Documentation achieved through voice recording which my lead to some occasional accidental typographical errors. Extensive efforts have been made to proof read documentation to make sure these are the least as possible. Category Date Time Status EKG Documentation STAT Care 11/22/18 13:37 Completed Orthostatic Vital Sign (ED) NOW Care 11/22/18 14:45 Active Saline Lock (ED) NOW Care 11/22/18 13:37 Active CHEST 2 VIEWS [RAD] Stat Exams 11/22/18 13:39 Completed ADD ON [ADD ON TESTING BLD IN LAB] [CHEM] Stat Lab 11/22/18 14:16 Completed CBC MORPHOLOGY [HEME] Stat Lab 11/22/18 14:16 Completed CBC WITH DIFF [HEME] Stat Lab 11/22/18 14:16 Completed CKMB [CREATINE KINASE MB] [CHEM] Stat Lab 11/22/18 14:16 Completed COMPREHENSIVE METABOLIC PANEL [CHEM] Stat Lab 11/22/18 14:16 Completed CREATINE KINASE [CHEM] Stat Lab 11/22/18 14:16 Completed HCG-QUAL, SERUM [CHEM] Stat Lab 11/22/18 14:16 Completed MAGNESIUM [CHEM] Stat Lab 11/22/18 14:16 Completed TROPONIN I [CHEM] Stat Lab 11/22/18 14:16 Completed TYPE AND SCREEN [BBK] Stat Lab 11/22/18 14:16 Completed UA [URINALYSIS] [URIN] Stat Lab 11/22/18 14:16 Completed Ketorolac Tromethamine [Toradol Inj/Pf 30 mg/1 ml Sdv] Med 11/22/18 15:03 Discontinued 30 mg IV NOW ONE Normal Saline 1000 ml [NaCl 0.9% 1000 ml IV Soln] 1,000 Med 11/22/18 13:40 Discontinued ml IV BOLUS Ondansetron HCl/Pf [Zofran Inj/Pf 4 mg/2 ml Sdv] Med 11/22/18 15:03 Discontinued 4 mg IV NOW ONE EKG ER ONLY [ER] Stat Oth 11/22/18 Completed 11/27/18 04:16 - Vital Signs Vital signs: Temp Pulse Resp BP Pulse Ox 97.7 F 99 15 141/83 H 99 11/22/18 13:04 11/22/18 13:04 11/22/18 13:04 11/22/18 13:04 11/22/18 13:04 Temp Pulse Pulse Pulse Pulse Pulse Resp 11/22/18 20:00 97.8 F 88 20 11/22/18 16:13 80 11/22/18 16:10 90 92 80 11/22/18 13:04 97.7 F 99 15 BP BP BP BP BP Pulse Ox 11/22/18 20:00 126/88 H 99 11/22/18 16:13 11/22/18 16:10 129/85 H 125/92 H 127/85 H 11/22/18 13:04 141/83 H 99 - Laboratory Result Diagrams: 11/22/18 14:16 11/22/18 14:16 Laboratory results interpreted by me: 11/27/18 04:00 Labs- Entire Visit 11/22/18 11/22/18 11/22/18 14:16 14:16 14:16 WBC 7.8 RBC 4.69 Hgb 8.4 L Hct 29.1 L MCV 62 L MCH 17.9 L MCHC 28.9 L RDW 18.3 H Plt Count 236 Seg Neutrophils % 55.2 Lymphocytes % 33.5 Monocytes % 7.4 Eosinophils % 3.1 Basophils % 0.8 Absolute Neutrophils 4.3 Absolute Lymphocytes 2.6 Absolute Monocytes 0.6 Absolute Eosinophils 0.2 Absolute Basophils 0.1 Platelet Comment ADEQUATE Polychromasia SLIGHT Hypochromasia 3+ Poikilocytosis SLIGHT Anisocytosis 2+ Microcytosis 3+ Ovalocytes SLIGHT Sodium 136.6 L Potassium 4.3 Chloride 106 Carbon Dioxide 24 Anion Gap 7 BUN 12 Creatinine 0.72 Est GFR ( Amer) > 60 Est GFR (Non-Af Amer) > 60 Glucose 92 Calcium 9.0 Magnesium Total Bilirubin 0.2 Direct Bilirubin 0.2 Neonat Total Bilirubin Not Reportable Neonat Direct Bilirubin Not Reportable Neonat Indirect Bili Not Reportable AST 21 ALT 11 Alkaline Phosphatase 60 Creatine Kinase CK-MB (CK-2) Troponin I Total Protein 7.7 Albumin 4.1 Serum HCG, Qual NEGATIVE Urine Color Urine Appearance Urine pH Ur Specific [place] Urine Protein Urine Glucose (UA) Urine Ketones Urine Blood Urine Nitrite Urine Bilirubin Urine Urobilinogen Ur Leukocyte Esterase Urine WBC (Auto) Urine RBC (Auto) Urine Bacteria (Auto) Squamous Epi Cells Auto Amorphous Sediment Auto Urine Mucus (Auto) Urine Ascorbic Acid Blood Type Antibody Screen 11/22/18 11/22/18 11/22/18 14:16 14:16 14:16 WBC RBC Hgb Hct MCV MCH MCHC RDW Plt Count Seg Neutrophils % Lymphocytes % Monocytes % Eosinophils % Basophils % Absolute Neutrophils Absolute Lymphocytes Absolute Monocytes Absolute Eosinophils Absolute Basophils Platelet Comment Polychromasia Hypochromasia Poikilocytosis Anisocytosis Microcytosis Ovalocytes Sodium Potassium Chloride Carbon Dioxide Anion Gap BUN Creatinine Est GFR ( Amer) Est GFR (Non-Af Amer) Glucose Calcium Magnesium 2.1 Total Bilirubin Direct Bilirubin Neonat Total Bilirubin Neonat Direct Bilirubin Neonat Indirect Bili AST ALT Alkaline Phosphatase Creatine Kinase 68 CK-MB (CK-2) 0.25 Troponin I < 0.012 Total Protein Albumin Serum HCG, Qual Urine Color Urine Appearance Urine pH Ur Specific [place] Urine Protein Urine Glucose (UA) Urine Ketones Urine Blood Urine Nitrite Urine Bilirubin Urine Urobilinogen Ur Leukocyte Esterase Urine WBC (Auto) Urine RBC (Auto) Urine Bacteria (Auto) Squamous Epi Cells Auto Amorphous Sediment Auto Urine Mucus (Auto) Urine Ascorbic Acid Blood Type O POSITIVE Antibody Screen NEGATIVE 11/22/18 14:16 WBC RBC Hgb Hct MCV MCH MCHC RDW Plt Count Seg Neutrophils % Lymphocytes % Monocytes % Eosinophils % Basophils % Absolute Neutrophils Absolute Lymphocytes Absolute Monocytes Absolute Eosinophils Absolute Basophils Platelet Comment Polychromasia Hypochromasia Poikilocytosis Anisocytosis Microcytosis Ovalocytes Sodium Potassium Chloride Carbon Dioxide Anion Gap BUN Creatinine Est GFR ( Amer) Est GFR (Non-Af Amer) Glucose Calcium Magnesium Total Bilirubin Direct Bilirubin Neonat Total Bilirubin Neonat Direct Bilirubin Neonat Indirect Bili AST ALT Alkaline Phosphatase Creatine Kinase CK-MB (CK-2) Troponin I Total Protein Albumin Serum HCG, Qual Urine Color YELLOW Urine Appearance CLOUDY Urine pH 7.0 Ur Specific [place] 1.027 Urine Protein NEGATIVE Urine Glucose (UA) NEGATIVE Urine Ketones NEGATIVE Urine Blood LARGE H Urine Nitrite NEGATIVE Urine Bilirubin NEGATIVE Urine Urobilinogen 2.0 H Ur Leukocyte Esterase NEGATIVE Urine WBC (Auto) 3 Urine RBC (Auto) 2 Urine Bacteria (Auto) TRACE Squamous Epi Cells Auto 19 Amorphous Sediment Auto TRACE Urine Mucus (Auto) FEW Urine Ascorbic Acid NEGATIVE Blood Type Antibody Screen \ - Diagnostic Test Radiology reviewed: Image reviewed, Reports reviewed Radiology results interpreted by me: Chest X-Ray 11/22/18 13:39 IMPRESSION: NO ACUTE FINDINGS. Chest X-Ray 11/22/18 13:39 IMPRESSION: NO ACUTE FINDINGS. ' cxr, head ct, ct cerv spine w/o contrast, and right shoulder xr did not cross over during down time so this can be considered some of the extra fluid now as pt was initially dehydrated and didn't drive much throughout the say - EKG Interpretation by Me EKG shows normal: Sinus rhythm Rate: Tachycardia - 103 bpm, no stemi, no old avail for review currently, reviewed by dr hassan When compared to previous EKG there are: No significant change, Previous EKG unavailable Discharge - Discharge Clinical Impression: Dysfunctional uterine bleeding, Threatened Anemia Qualifiers: Anemia type: unspecified type Qualified Code(s): D64.9 - Anemia, unspecified Condition: Good Disposition: HOME, SELF-CARE Instructions: Anemia ([facility]), Dysfunctional Uterine Bleeding ([facility]) Additional Instructions: Follow-up with your PCP/obgyn or the OBGYN listed in your paperwork in 1 to 2 days. Return for any worsening symptoms. continue to take your iron supplementation/prenatals Referrals: ROSE VIVAR MD [ACTIVE STAFF] - Follow up in 3-5 days
--- NOTE | 2018-11-22 14:42 | RADIOLOGY REPORT (SQ) ---
EXAM DESCRIPTION: CHEST 2 VIEWS COMPLETED DATE/TIME: 11/22/2018 2:33 pm REASON FOR STUDY: chest pain COMPARISON: 05/31/2018 TECHNIQUE: Frontal and lateral radiographic views of the chest acquired. NUMBER OF VIEWS: Two view. LIMITATIONS: None. FINDINGS: LUNGS AND PLEURA: No pneumothorax. No consolidation or pleural effusion. MEDIASTINUM AND HILAR STRUCTURES: Stable. HEART AND VASCULAR STRUCTURES: Stable. BONES: No acute findings. HARDWARE: None in the chest. OTHER: No other significant finding. IMPRESSION: NO ACUTE FINDINGS. TECHNICAL DOCUMENTATION: JOB ID: [id number] [id number] 2010 [employer]- All Rights Reserved Reading location - IP/workstation name: Robert Applebaum MD
[2018-11-22 14:43] LABS: ABSOLUTE BASOPHILS # (AUTO) 0.1 10^3/uL (0.0-0.2); ABSOLUTE EOSINOPHILS # (AUTO) 0.2 10^3/uL (0.0-0.6); ABSOLUTE LYMPHOCYTES (AUTO) 2.6 10^3/uL (0.5-4.7); ABSOLUTE MONOCYTES (AUTO) 0.6 10^3/uL (0.1-1.4); ABSOLUTE NEUT (AUTO) 4.3 10^3/uL (1.7-8.2); BASOPHILS % (AUTO) 0.8 % (0-2); EOSINOPHILS % (AUTO) 3.1 % (0-6); HEMATOCRIT 29.1 % (36.0-47.0); HEMOGLOBIN 8.4 g/dL (12.0-15.5); LYMPHOCYTES % (AUTO) 33.5 % (13-45); MEAN CORPUSCULAR HEMOGLOBIN 17.9 pg (27.0-33.4); MEAN CORPUSCULAR HGB CONC 28.9 g/dL (32.0-36.0); MEAN CORPUSCULAR VOLUME 62 fl (80-97); MONOCYTES % (AUTO) 7.4 % (3-13); PLATELET COUNT 236 10^3/uL (150-450); RED BLOOD COUNT 4.69 10^6/uL (3.72-5.28); RED CELL DISTRIBUTION WIDTH 18.3 % (11.5-14.0); SEGMENTED NEUTROPHILS % (AUTO) 55.2 % (42-78); TOTAL CELLS COUNTED % (AUTO) 100 %; WHITE BLOOD COUNT 7.8 10^3/uL (4.0-10.5)
[2018-11-22 14:52] LABS: ALBUMIN 4.1 g/dL (3.5-5.0); ALKALINE PHOSPHATASE 60 U/L (38-126); ANION GAP 7 (5-19); ASPARTATE AMINO TRANSFERASE 21 U/L (14-36); BILIRUBIN,DIRECT 0.2 mg/dL (0.0-0.4); BILIRUBIN,TOTAL 0.2 mg/dL (0.2-1.3); BLOOD UREA NITROGEN 12 mg/dL (7-20); CARBON DIOXIDE 24 mmol/L (22-30); CHLORIDE 106 mmol/L (98-107); GLUCOSE 92 mg/dL (75-110); POTASSIUM 4.3 mmol/L (3.6-5.0); TOTAL PROTEIN 7.7 g/dL (6.3-8.2)
[2018-11-22] MEDS ORDERED: ONDANSETRON HCL INJ/PF 4 MG/2 ML SDV IV ONE (15:03)
[2018-11-22] MEDS ORDERED: KETOROLAC TROMETHAMINE INJ/PF 30 MG/1 ML SDV IV ONE (15:03)
[2018-11-22 15:11] LABS: ANISOCYTOSIS 2+; HYPOCHROMASIA 3+; OVALOCYTES SLIGHT; PLATELET COMMENT ADEQUATE; POIKILOCYTOSIS SLIGHT; POLYCHROMASIA SLIGHT
[2018-11-22 15:16] LABS: CREATINE KINASE 68 U/L (30-135)
[2018-11-22 15:29] LABS: CREATINE KINASE MB 0.25 ng/mL (<4.55); TROPONIN I < 0.012 ng/mL
[2018-11-22 15:52] LABS: AMORPHOUS SEDIMENT,URINE TRACE /HPF; APPEARANCE,URINE CLOUDY; BILIRUBIN,URINE NEGATIVE (NEGATIVE); COLOR,URINE YELLOW; GLUCOSE, URINE NEGATIVE (NEGATIVE); KETONES,URINE NEGATIVE (NEGATIVE); LEUKOCYTE ESTERASE,URINE NEGATIVE (NEGATIVE); NITRITE,URINE NEGATIVE (NEGATIVE); PROTEIN,URINE NEGATIVE (NEGATIVE); URINE SPECIFIC GRAVITY 1.027
[2018-11-22 20:07] VITALS: BP 126/88
--- NOTE | 2018-11-23 00:36 | EKG REPORT ---
SEVERITY:- OTHERWISE NORMAL ECG - SINUS TACHYCARDIA : Confirmed by: Amanda Avitia 23-Nov-2018 00:35:30
== END 2018-11-22 20:07 | disposition home or self-care (01) ==
LOC: ER 12:46
DX: O20.0 Threatened abortion (principal); O26.899 Other specified pregnancy related conditions, unspecified trimester; R42 Dizziness and giddiness; R07.9 Chest pain, unspecified; R51 Headache; R10.30 Lower abdominal pain, unspecified; Z3A.00 Weeks of gestation of pregnancy not specified; I50.9 Heart failure, unspecified; I11.0 Hypertensive heart disease with heart failure; I25.10 Atherosclerotic heart disease of native coronary artery without angina pectoris; J45.909 Unspecified asthma, uncomplicated; E66.01 Morbid (severe) obesity due to excess calories
CPT/HCPCS: 93005; 99284; 96361; 96374; 96375; 86900; 86901; 36415; 82553; 86850; 82550; 83735; 84703; 85025; 80053; 81001; 84484; 71046; 93010; J1885; J2405; J7030

== ENCOUNTER 2018-12-18 15:19 | Emergency (ER) | payer SELFPAY ==
[2018-12-18 15:49] VITALS: BP 139/78
[2018-12-18] MEDS ORDERED: CLINDAMYCIN HCL 150 MG CAPSULE PO ONE (16:23)
[2018-12-18] MEDS ORDERED: LIDOCAINE 2% VISCOUS SOLN 20 ML UDCUP PO ONE (16:23)
[2018-12-18] MEDS ORDERED: IBUPROFEN 800 MG TABLET PO ONE (16:23)
--- NOTE | 2018-12-18 16:27 | ER Document Report ---
HPI - HPI Patient complains to provider of: mouth pain Time Seen by Provider: 12/18/18 16:16 Onset: Other - 3 days Onset/Duration: Worse Quality of pain: Achy Pain Level: 3 Context: Patient complains of tenderness to the right upper side of her mouth for the past 3 days. Patient reports swelling for the past 2 days. No fever. Patient is not aware of any obvious dental decay in her mouth. No ear pain. Associated Symptoms: Other - mouth pain. denies: Earache, Fever, Nausea Exacerbated by: Denies Relieved by: Denies Similar symptoms previously: No Recently seen / treated by doctor: No - ROS ROS below otherwise negative: Yes Systems Reviewed and Negative: Yes All other systems reviewed and negative - EENT EENT: DENIES: Ear Pain Notes: Mouth tenderness - RESPIRATORY Respiratory: DENIES: Coughing - GASTROINTESTINAL Gastrointestinal: DENIES: Nausea, Patient vomiting - REPRODUCTIVE Reproductive: DENIES: : - DERM Skin Color: Normal Skin Problems: None Past Medical History - General Information source: Patient - Social History Smoking Status: Never Smoker Frequency of alcohol use: None Drug Abuse: None 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 Denies: Hx Peritoneal Dialysis Musculoskeletal Medical History: Reports Hx Musculoskeletal Deformity, Reports Hx Musculoskeletal Trauma Psychiatric Medical History: Reports: Hx Anxiety, Hx Depression Traumatic Medical History: Reports: Hx Spine Fracture, Hx Traumatic Brain Injury Past Surgical History: Reports: Hx Section - x 2, Hx Kidney (Renal Surgery) - nephrectomy- followed closetly on tacrolimus and mtx by , Hx Orthopedic Surgery - Axilla abscess removal, Hx Tubal Ligation - Immunizations Immunizations up to date: Yes Hx Diphtheria, Pertussis, Tetanus Vaccination: Yes Hx Pneumococcal Vaccination: 04/07/00 Vertical Provider Document - CONSTITUTIONAL Agree With Documented VS: Yes Exam Limitations: No Limitations - INFECTION CONTROL TRAVEL OUTSIDE OF THE [place] IN LAST 30 DAYS: No COUNTRY TRAVELED TO/FROM: [place] - HEENT HEENT: Atraumatic, Normocephalic Mouth Diagram: 1 - dental decay with adjacent gingival abscess Notes: Subtle facial swelling right maxillary area - NECK Neck: Normal Inspection, Supple. negative: Lymphadenopathy-Left, Lymphadenopathy-Right - RESPIRATORY Respiratory: Breath Sounds Normal, No Respiratory Distress - CARDIOVASCULAR Cardiovascular: Regular Rate, Regular Rhythm - MUSCULOSKELETAL/EXTREMETIES Musculoskeletal/Extremeties: MAEW - NEURO Level of Consciousness: Awake, Alert, Appropriate Motor/Sensory: No Motor Deficit - DERM Integumentary: Warm, Dry, No Rash Course - Re-evaluation Re-evalutation: 12/18/18 Patient with dental abscess that was drained with needle aspiration. Patient tolerated well. Discussed worsening symptoms that patient should return immediately for. Patient nontoxic and stable for discharge at this time. - Vital Signs Vital signs: Temp Pulse Resp BP Pulse Ox 98.6 F 88 18 139/78 H 100 12/18/18 15:49 12/18/18 15:49 12/18/18 15:49 12/18/18 15:49 12/18/18 15:49 Procedures - Incision and Drainage Head Type: Simple Incision Method: Incision made with needle Amount/type of drainage: small amount of purulent drainage aspirated Mouth/Teeth picture: 1 - Dental abscess aspirated Discharge - Discharge Clinical Impression: Dental abscess Condition: Stable Disposition: HOME, SELF-CARE Instructions: Abscess ([facility]), Clindamycin ([facility]), Toothache ([facility]) Additional Instructions: Return immediately for any new or worsening symptoms Followup with your primary care provider, call tomorrow to make a followup appointment Follow-up with a dental care provider, call Friday for an appointment Prescriptions: Acetaminophen with Codeine [Tylenol #3 Tablet] 1 each PO Q6HP PRN #12 tablet PRN Reason: Clindamycin HCl [Cleocin 300 mg Capsule] 300 mg PO TID #21 capsule Naproxen [Naprosyn 250 Nmg Tablet] 1 tab PO BID #14 tablet Forms: Return to Work Referrals: [facility] [Provider Group] - Follow up as needed
== END 2018-12-18 16:43 | disposition home or self-care (01) ==
LOC: ER 15:19
DX: K04.7 Periapical abscess without sinus (principal); K02.9 Dental caries, unspecified; J45.909 Unspecified asthma, uncomplicated
CPT/HCPCS: 99282; 40800; J3490

== ENCOUNTER 2019-01-03 13:21 | Emergency (ER) | payer MEDICAID ==
[2019-01-03] MEDS ORDERED: DIPHENHYDRAMINE HCL 50 MG/ML VIAL IV ONE (14:14)
[2019-01-03] MEDS ORDERED: PROCHLORPERAZINE EDISYLATE INJ 10 MG/2 ML VIAL IV ONE (14:14)
--- NOTE | 2019-01-03 14:21 | ER Document Report ---
ED Medical Screen (RME) - General Chief Complaint: Headache Stated Complaint: HEADACHE Time Seen by Provider: 01/03/19 14:11 Mode of Arrival: Ambulatory Information source: Patient Notes: Patient presents complaining of headache that started yesterday that migrates in location and is presently to the left side of her head. Patient reports nausea with vomiting x2 episodes today. Patient reports shortness of breath that is worse with exertion. Patient does report cough for several weeks. Patient also complains of irregular menses and is concerned she may be anemic. I have greeted and performed a rapid initial assessment of this patient. A comprehensive ED assessment and evaluation of the patient, analysis of test results and completion of the medical decision making process will be conducted by additional ED providers. TRAVEL OUTSIDE OF THE [place] IN LAST 30 DAYS: No COUNTRY TRAVELED TO/FROM: [place] - Related Data Allergies/Adverse Reactions: azithromycin [From Zithromax Z-Lukas] Allergy (Verified 01/03/19 14:09) Past Medical History - Past Medical History Cardiac Medical History: Reports: Hx Atrial Fibrillation, Hx Congestive Heart Failure, Hx Hypercholesterolemia, Hx Hypertension Denies: Hx DVT, Hx Heart Attack, Hx Pulmonary Embolism Pulmonary Medical History: Reports: Hx Asthma, Hx Bronchitis, Hx Pneumonia Neurological Medical History: Reports: Hx Migraine Renal/ Medical History: Reports: Hx Kidney Stones, Hx Ovarian Cysts. Denies: Hx Peritoneal Dialysis Musculoskeltal Medical History: Reports Hx Musculoskeletal Deformity, Reports Hx Musculoskeletal Trauma Psychiatric Medical History: Reports: Hx Anxiety, Hx Depression Traumatic Medical History: Reports: Hx Spine Fracture, Hx Traumatic Brain Injury Past Surgical History: Reports: Hx Section - x 2, Hx Kidney (Renal Surgery) - nephrectomy- followed closetly on tacrolimus and mtx by , Hx Orthopedic Surgery - Axilla abscess removal, Hx Tubal Ligation - Immunizations Immunizations up to date: Yes Hx Diphtheria, Pertussis, Tetanus Vaccination: Yes History of Influenza Vaccine for 01/2017 - 06/2017 Season: No Physical Exam - Vital signs Vitals: Temp Pulse Resp BP Pulse Ox 99.1 F 106 H 16 139/76 H 100 01/03/19 13:25 01/03/19 13:25 01/03/19 13:25 01/03/19 13:25 01/03/19 13:25 - Respiratory Respiratory status: No respiratory distress Breath sounds: Normal Course - Vital Signs Vital signs: Temp Pulse Resp BP Pulse Ox 99.1 F 106 H 16 139/76 H 100 01/03/19 13:25 01/03/19 13:25 01/03/19 13:25 01/03/19 13:25 01/03/19 13:25
--- NOTE | 2019-01-03 14:48 | RADIOLOGY REPORT (SQ) ---
EXAM DESCRIPTION: CHEST 2 VIEWS COMPLETED DATE/TIME: 01/03/2019 2:36 pm REASON FOR STUDY: cough, sob COMPARISON: Two-view chest 11/22/2018, 05/31/2018 EXAM PARAMETERS: NUMBER OF VIEWS: two views TECHNIQUE: Digital Frontal and Lateral radiographic views of the chest acquired. RADIATION DOSE: NA LIMITATIONS: none FINDINGS: LUNGS AND PLEURA: No opacities, masses or pneumothorax. No pleural effusion. MEDIASTINUM AND HILAR STRUCTURES: No masses or contour abnormalities. HEART AND VASCULAR STRUCTURES: Heart normal size. No evidence for failure. BONES: No acute findings. HARDWARE: None in the chest. OTHER: No other significant finding. IMPRESSION: NO ACUTE RADIOGRAPHIC FINDING IN THE CHEST. TECHNICAL DOCUMENTATION: JOB ID: [id number] [employer]- All Rights Reserved Reading location - IP/workstation name: [email or web address]
[2019-01-03 16:20] LABS: ALBUMIN 4.1 g/dL (3.5-5.0); ALKALINE PHOSPHATASE 60 U/L (38-126); ANION GAP 8 (5-19); ASPARTATE AMINO TRANSFERASE 21 U/L (14-36); BILIRUBIN,DIRECT 0.1 mg/dL (0.0-0.4); BILIRUBIN,TOTAL 0.2 mg/dL (0.2-1.3); BLOOD UREA NITROGEN 5 mg/dL (7-20); CALCIUM 9.3 mg/dL (8.4-10.2); CARBON DIOXIDE 24 mmol/L (22-30); CHLORIDE 105 mmol/L (98-107); GLUCOSE 82 mg/dL (75-110); POTASSIUM 4.3 mmol/L (3.6-5.0)
[2019-01-03 16:21] LABS: ABSOLUTE BASOPHILS # (AUTO) 0.1 10^3/uL (0.0-0.2); ABSOLUTE EOSINOPHILS # (AUTO) 0.2 10^3/uL (0.0-0.6); ABSOLUTE LYMPHOCYTES (AUTO) 2.8 10^3/uL (0.5-4.7); ABSOLUTE MONOCYTES (AUTO) 0.6 10^3/uL (0.1-1.4); ABSOLUTE NEUT (AUTO) 4.5 10^3/uL (1.7-8.2); EOSINOPHILS % (AUTO) 2.5 % (0-6); HEMATOCRIT 30.2 % (36.0-47.0); HEMOGLOBIN 8.6 g/dL (12.0-15.5); LYMPHOCYTES % (AUTO) 34.3 % (13-45); MEAN CORPUSCULAR HEMOGLOBIN 17.4 pg (27.0-33.4); MEAN CORPUSCULAR HGB CONC 28.6 g/dL (32.0-36.0); MEAN CORPUSCULAR VOLUME 61 fl (80-97); PLATELET COUNT 272 10^3/uL (150-450); RED BLOOD COUNT 4.97 10^6/uL (3.72-5.28); RED CELL DISTRIBUTION WIDTH 18.5 % (11.5-14.0); SEGMENTED NEUTROPHILS % (AUTO) 55.2 % (42-78); TOTAL CELLS COUNTED % (AUTO) 100 %; WHITE BLOOD COUNT 8.1 10^3/uL (4.0-10.5)
[2019-01-03 16:35] LABS: NT PRO BNP 154 pg/mL (<125)
[2019-01-03 16:43] LABS: TROPONIN I < 0.012 ng/mL
[2019-01-03 17:10] LABS: ANISOCYTOSIS 1+; POLYCHROMASIA SLIGHT
[2019-01-03 17:11] LABS: HYPOCHROMASIA 2+; OVALOCYTES 1+; POIKILOCYTOSIS 1+; TARGET CELLS SLIGHT
[2019-01-03 17:12] LABS: PLATELET COMMENT ADEQUATE; TEAR DROP CELLS SLIGHT
[2019-01-03] MEDS ORDERED: PROCHLORPERAZINE EDISYLATE INJ 10 MG/2 ML VIAL ONE (17:12)
[2019-01-03] MEDS ORDERED: DIPHENHYDRAMINE HCL 50 MG/ML VIAL ONE (17:12)
[2019-01-03] MEDS ORDERED: NORMAL SALINE 1000 ML 1,000 ML IV ONE (18:56)
--- NOTE | 2019-01-03 19:40 | ER Document Report ---
ED General - General Chief Complaint: Headache Stated Complaint: HEADACHE Time Seen by Provider: 01/03/19 14:11 Mode of Arrival: Ambulatory Notes: RME NOTE: Patient presents complaining of headache that started yesterday that migrates in location and is presently to the left side of her head. Patient reports nausea with vomiting x2 episodes today. Patient reports shortness of breath that is worse with exertion. Patient does report cough for several weeks. Patient also complains of irregular menses and is concerned she may be anemic. MY HPI: Patient is a morbidly obese 28-year-old female presents to the emergency department for multiple complaints. States she does have a history of migraines and feels as though she has a migraine currently. Patient states she typically vomits with her migraines as well. Patient states she is also had generalized cough and congestion for the last couple of days. Is denying any fevers. States she does have a history of irregular menses. States she did see [facility] f or same. States she was placed on control but she stopped taking it. States she was unable to follow-up with [facility]. States she has not seen them for "months." Patient states she does take iron pills for her anemia. Pt. is currently denying vaginal bleeding or dysuria. TRAVEL OUTSIDE OF THE [place] IN LAST 30 DAYS: No COUNTRY TRAVELED TO/FROM: [place] - Related Data Allergies/Adverse Reactions: azithromycin [From Zithromax Z-Lukas] Allergy (Verified 01/03/19 14:09) Past Medical History - General Information source: Patient - Social History Smoking Status: Never Smoker Family History: Arthritis, CAD - Patient's father had CABG in his 40s, DM, Hyperlipidemia, Hypertension, Malignancy Patient has suicidal ideation: No Patient has homicidal ideation: No - Past Medical History Cardiac Medical History: Reports: Hx Atrial Fibrillation, Hx Congestive Heart Failure, Hx Hypercholesterolemia, Hx Hypertension Denies: Hx DVT, Hx Heart Attack, Hx Pulmonary Embolism Pulmonary Medical History: Reports: Hx Asthma, Hx Bronchitis, Hx Pneumonia Neurological Medical History: Reports: Hx Migraine Renal/ Medical History: Reports: Hx Kidney Stones, Hx Ovarian Cysts. Denies: Hx Peritoneal Dialysis Musculoskeletal Medical History: Reports Hx Musculoskeletal Deformity, Reports Hx Musculoskeletal Trauma Psychiatric Medical History: Reports: Hx Anxiety, Hx Depression Traumatic Medical History: Reports: Hx Spine Fracture, Hx Traumatic Brain Injury Past Surgical History: Reports: Hx Section - x 2, Hx Kidney (Renal Surgery) - nephrectomy- followed closetly on tacrolimus and mtx by , [facility] - Axilla abscess removal, Hx Tubal Ligation - Immunizations Immunizations up to date: Yes Hx Diphtheria, Pertussis, Tetanus Vaccination: Yes Hx Pneumococcal Vaccination: 04/07/00 Review of Systems - Review of Systems Constitutional: denies: Fever EENT: See HPI Cardiovascular: denies: Chest pain Respiratory: See HPI Gastrointestinal: See HPI Genitourinary: No symptoms reported Female Genitourinary: See HPI Musculoskeletal: No symptoms reported Skin: No symptoms reported Hematologic/Lymphatic: See HPI Neurological/Psychological: See HPI Physical Exam - Vital signs Vitals: Temp Pulse Resp BP Pulse Ox 99.1 F 106 H 16 139/76 H 100 01/03/19 13:25 01/03/19 13:25 01/03/19 13:25 01/03/19 13:25 01/03/19 13:25 - Notes Notes: GENERAL: Morbidly obese, alert, interacts well. No acute distress. HEAD: Normocephalic, atraumatic. EYES: Pupils equal, round, and reactive to light. Extraocular movements intact. ENT: Oral mucosa moist, tongue midline. Nares patent, TM's intact, nonerythematous, nonbulging bilaterally. Pharynx within normal limits no palata l petechiae noted. NECK: Full range of motion. Supple. Trachea midline. No lymphadenopathy appreciated LUNGS: Clear to auscultation bilaterally, no wheezes, rales, or rhonchi. No respiratory distress. HEART: Regular rate and rhythm. No murmur ABDOMEN: Soft, non-tender. Non-distended. Bowel sounds present in all 4 quadrants. EXTREMITIES: Moves all 4 extremities spontaneously. No edema, normal radial and dorsalis pedis pulses bilaterally. No cyanosis. 5 out of 5 strength noted all 4 extremities. BACK: no cervical, thoracic, lumbar midline tenderness. No saddle anesthesia, normal distal neurovascular exam. NEUROLOGICAL: Alert and oriented x3. Normal speech. cranial nerves II through XII grossly intact. PSYCH: Normal affect, normal mood. SKIN: Warm, dry, normal turgor. No rashes or lesions noted. Course - Re-evaluation Re-evalutation: 01/03/19 19:42 Laboratory 01/03/19 01/03/19 01/03/19 15:25 15:25 15:25 WBC 8.1 RBC 4.97 Hgb 8.6 L Hct 30.2 L MCV 61 L MCH 17.4 L MCHC 28.6 L RDW 18.5 H Plt Count 272 Lymph % (Auto) 34.3 [place] % (Auto) 7.0 Eos % (Auto) 2.5 Baso % (Auto) 1.0 Absolute Neuts (auto) 4.5 Absolute Lymphs (auto) 2.8 Absolute Monos (auto) 0.6 Absolute Eos (auto) 0.2 Absolute Basos (auto) 0.1 Seg Neutrophils % 55.2 Platelet Comment ADEQUATE Polychromasia SLIGHT Hypochromasia 2+ Poikilocytosis 1+ Anisocytosis 1+ Microcytosis 3+ Target Cells SLIGHT Tear Drop Cells SLIGHT Ovalocytes 1+ Sodium 136.8 L Potassium 4.3 Chloride 105 Carbon Dioxide 24 Anion Gap 8 BUN 5 L Creatinine 0.77 Est GFR ( Amer) > 60 Est GFR (MDRD) Non-Af > 60 Glucose 82 Calcium 9.3 Total Bilirubin 0.2 Direct Bilirubin 0.1 Neonat Total Bilirubin Not Reportable Neonat Direct Bilirubin Not Reportable Neonat Indirect Bili Not Reportable AST 21 ALT 14 Alkaline Phosphatase 60 Troponin I NT-Pro-B Natriuret Pep Total Protein 8.0 Albumin 4.1 Serum HCG, Qual NEGATIVE 01/03/19 15:25 WBC RBC Hgb Hct MCV MCH MCHC RDW Plt Count Lymph % (Auto) [place] % (Auto) Eos % (Auto) Baso % (Auto) Absolute Neuts (auto) Absolute Lymphs (auto) Absolute Monos (auto) Absolute Eos (auto) Absolute Basos (auto) Seg Neutrophils % Platelet Comment Polychromasia Hypochromasia Poikilocytosis Anisocytosis Microcytosis Target Cells Tear Drop Cells Ovalocytes Sodium Potassium Chloride Carbon Dioxide Anion Gap BUN Creatinine Est GFR ( Amer) Est GFR (MDRD) Non-Af Glucose Calcium Total Bilirubin Direct Bilirubin Neonat Total Bilirubin Neonat Direct Bilirubin Neonat Indirect Bili AST ALT Alkaline Phosphatase Troponin I < 0.012 NT-Pro-B Natriuret Pep 154 H Total Protein Albumin Serum HCG, Qual Upon my assessment patient has already been treated with Compazine and Benadryl. States she no longer has a headache. Patient's symptoms are consistent with a URI illness. Patient's current hemoglobin is 8.6 which is improved from the hemoglobin noted in this facility last month. Patient is denying any vaginal bleeding at this time. Discussed with her she needs to continue take her iron pills as prescribed. Also discussed she should continue to follow-up with [facility]. - Vital Signs Vital signs: Temp Pulse Resp BP Pulse Ox 99.1 F 106 H 16 139/76 H 100 01/03/19 13:25 01/03/19 13:25 01/03/19 13:25 01/03/19 13:25 01/03/19 13:25 - Laboratory Result Diagrams: 01/03/19 15:25 01/03/19 15:25 Laboratory results interpreted by me: 01/03/19 01/03/19 01/03/19 15:25 15:25 15:25 Hgb 8.6 L Hct 30.2 L MCV 61 L MCH 17.4 L MCHC 28.6 L RDW 18.5 H Sodium 136.8 L BUN 5 L NT-Pro-B Natriuret Pep 154 H Discharge - Discharge Clinical Impression: Morbid obesity Iron deficiency anemia Qualifiers: Iron deficiency anemia type: unspecified iron deficiency Qualified Code(s): D50.9 - Iron deficiency anemia, unspecified Upper respiratory infection Qualifiers: URI type: unspecified viral URI Qualified Code(s): J06.9 - Acute upper respiratory infection, unspecified Migraine Qualifiers: Migraine type: unspecified Status migrainosus presence: without status migrainosus Intractability: not intractable Qualified Code(s): G43.909 - Migraine, unspecified, not intractable, without status migrainosus Condition: Stable Disposition: HOME, SELF-CARE Instructions: Viral Syndrome ([facility]), Upper Respiratory Illness ([facility]), Use of Diphenhydramine, Intravenous Compazine for Headaches ([facility]), Migraine Headache ([facility]), Anemia, Iron Deficiency ([facility]) Additional Instructions: As we discussed you have been seen and treated in the ER for your migraine and upper respiratory infection. Please make sure you follow-up with [facility] for your continued menstrual bleeding. Please return to the emergency room should you have any concerns. Forms: Return to Work Referrals: DARION MINAYA MD [[facility]] - Follow up as needed
[2019-01-03 20:45] LABS: APPEARANCE,URINE SLIGHTLY-CLOUDY; BILIRUBIN,URINE NEGATIVE (NEGATIVE); COLOR,URINE YELLOW; GLUCOSE, URINE NEGATIVE (NEGATIVE); KETONES,URINE NEGATIVE (NEGATIVE); LEUKOCYTE ESTERASE,URINE NEGATIVE (NEGATIVE); NITRITE,URINE NEGATIVE (NEGATIVE); PROTEIN,URINE 30 mg/dL (NEGATIVE); URINE SPECIFIC GRAVITY 1.026; UROBILINOGEN,URINE NEGATIVE mg/dL (<2.0)
[2019-01-03 21:19] VITALS: BP 110/55
--- NOTE | 2019-01-04 00:55 | EKG REPORT ---
SEVERITY:- NORMAL ECG - SINUS RHYTHM : Confirmed by: Amanda Avitia 04-Jan-2019 00:55:11
== END 2019-01-03 21:20 | disposition home or self-care (01) ==
LOC: ER 13:21
DX: J06.9 Acute upper respiratory infection, unspecified (principal); E66.01 Morbid (severe) obesity due to excess calories; D50.9 Iron deficiency anemia, unspecified; G43.909 Migraine, unspecified, not intractable, without status migrainosus; R09.81 Nasal congestion; R11.2 Nausea with vomiting, unspecified; R06.02 Shortness of breath; R05 Cough; I48.91 Unspecified atrial fibrillation; I50.9 Heart failure, unspecified; I11.0 Hypertensive heart disease with heart failure; J45.909 Unspecified asthma, uncomplicated
CPT/HCPCS: 93005; 99284; 96361; 96374; 96375; 36415; 84703; 85025; 80053; 81001; 84484; 83880; 71046; 93010; J1200; J0780; J7030

== ENCOUNTER 2019-01-11 09:28 | Emergency (ER) | payer SELFPAY ==
[2019-01-11 09:58] VITALS: BP 121/79
--- NOTE | 2019-01-11 10:36 | ER Document Report ---
HPI - HPI Time Seen by Provider: 01/11/19 10:22 Pain Level: 3 Notes: Patient is a 28-year-old female presenting to the emergency department with chief complaint of cough that has been persistent over the last few weeks. She reports mild sore throat associated with this but denies any fevers or chills. She is reporting some nasal congestion. She states she is taking [id number] TheraFlu and used cough drops. She reports nothing is helping. 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 - CONSTITUTIONAL Constitutional: DENIES: Fever, Chills - EENT EENT: REPORTS: Sore Throat. DENIES: Ear Pain, Eye problems - NEURO Neurology: DENIES: Headache, Weakness, Vision blurred, Dizzinesss / Vertigo - CARDIOVASCULAR Cardiovascular: DENIES: Chest pain - RESPIRATORY Respiratory: REPORTS: Coughing. DENIES: Trouble Breathing - GASTROINTESTINAL Gastrointestinal: DENIES: Abdominal Pain, Black / Bloody Stools - URINARY Urinary: DENIES: Dysuria, Urgency, Frequency - REPRODUCTIVE Reproductive: DENIES: : - MUSCULOSKELETAL Musculoskeletal: DENIES: Extremity pain Past Medical History - General Information source: Patient - Social History Smoking Status: Never Smoker Chew tobacco use (# tins/day): No Frequency of alcohol use: None Drug Abuse: None Family History: Arthritis, CAD - Patient's father had CABG in his 40s, DM, Hyperlipidemia, Hypertension, Malignancy Patient has suicidal ideation: No Patient has homicidal ideation: No - Past Medical History Cardiac Medical History: Reports: Hx Atrial Fibrillation, Hx Congestive Heart Failure, Hx Hypercholesterolemia, Hx Hypertension Denies: Hx DVT, Hx Heart Attack, Hx Pulmonary Embolism Pulmonary Medical History: Reports: Hx Asthma, Hx Bronchitis, Hx Pneumonia Neurological Medical History: Reports: Hx Migraine Renal/ Medical History: Reports: Hx Kidney Stones, Hx Ovarian Cysts. Denies: Hx Peritoneal Dialysis Musculoskeletal Medical History: Reports Hx Musculoskeletal Deformity, Reports Hx Musculoskeletal Trauma Psychiatric Medical History: Reports: Hx Anxiety, Hx Depression Traumatic Medical History: Reports: Hx Spine Fracture, Hx Traumatic Brain Injury Past Surgical History: Reports: Hx Section - x 2, Hx Kidney (Renal Surgery) - nephrectomy- followed closetly on tacrolimus and mtx by , [facility]x Orthopedic Surgery - Axilla abscess removal, Hx Tubal Ligation - Immunizations Immunizations up to date: Yes Hx Diphtheria, Pertussis, Tetanus Vaccination: Yes Hx Pneumococcal Vaccination: 04/07/00 Vertical Provider Document - CONSTITUTIONAL Notes: PHYSICAL EXAMINATION: GENERAL: Well-appearing, well-nourished and in no acute distress. HEAD: Atraumatic, normocephalic. EYES: Pupils equal round extraocular movements intact, conjunctiva are normal. ENT: Nares with clear rhinorrhea, oropharynx mildly erythematous but without exudates or tonsillar swelling. Uvula midline, no evidence of peritonsillar abscess. NECK: Normal range of motion, mild cervical lymphadenopathy. LUNGS: No respiratory distress, lung sounds clear and equal bilaterally, bronchospasm with deep breaths. Musculoskeletal: Normal range of motion NEUROLOGICAL: Normal speech, normal gait. PSYCH: Normal mood, normal affect. SKIN: Warm, Dry, normal turgor, no rashes or lesions noted. - INFECTION CONTROL TRAVEL OUTSIDE OF THE [place] IN LAST 30 DAYS: No COUNTRY TRAVELED TO/FROM: [facility] Course - Re-evaluation Re-evalutation: Patient appears well, nontoxic is alert, oriented and answering all questions appropriately, vital signs within normal limits. Examination consistent with viral upper respiratory illness. Patient will be started on prednisone course and will be discharged home with a prescription for some Cheratussin. Work note was provided. ED return precautions were discussed, patient verbalizes a understanding and agreement with same. - Vital Signs Vital signs: Temp Pulse Resp BP Pulse Ox 99.1 F 20 121/79 01/11/19 09:57 01/11/19 09:57 01/11/19 09:57 Discharge - Discharge Clinical Impression: Upper respiratory infection Qualifiers: URI type: unspecified viral URI Qualified Code(s): J06.9 - Acute upper respiratory infection, unspecified Condition: Stable Disposition: HOME, SELF-CARE Additional Instructions: Your symptoms are most likely due to a viral infection it should resolve over the next 7-14 days. You should take [id number] guanfacine per bottle instructions to help thin the mucus. Take the cough medication I have prescribed. You may also use tylenol or ibuprofen as needed for aches and throat discomfort. Please be sure to drink plenty of fluids and get rest. Return to the emergency department he began having difficulty breathing, chest pain, persistent vomiting, or any other symptoms that are concerning to you. Prescriptions: Codeine Phosphate/Guaifenesin [Cheratussin AC Syrup] 10 ml PO QID #120 ml Prednisone [Deltasone 20 mg Tablet] 3 tab PO DAILY 5 Days #15 tablet Forms: Return to Work
== END 2019-01-11 10:40 | disposition home or self-care (01) ==
LOC: ER 09:28
DX: J06.9 Acute upper respiratory infection, unspecified (principal); R05 Cough; J02.9 Acute pharyngitis, unspecified; R09.81 Nasal congestion; I50.9 Heart failure, unspecified; I11.0 Hypertensive heart disease with heart failure; J45.909 Unspecified asthma, uncomplicated
CPT/HCPCS: 99283

== ENCOUNTER 2019-02-16 07:54 | Emergency (ER) | payer OTHER ==
[2019-02-16] MEDS ORDERED: ACETAMINOPHEN 325 MG TABLET PO ONE (09:57)
--- NOTE | 2019-02-16 10:59 | RADIOLOGY REPORT (SQ) ---
EXAM DESCRIPTION: L SPINE WHOLE COMPLETED DATE/TIME: 02/16/2019 10:47 am REASON FOR STUDY: back pain COMPARISON: None. NUMBER OF VIEWS: Five views including obliques. TECHNIQUE: AP, lateral, oblique, and sacral radiographic images acquired of the lumbar spine. LIMITATIONS: None. FINDINGS: MINERALIZATION: Normal. SEGMENTATION: There are 5 lumbar-type vertebral bodies. There is no transitional anatomy at the lumb osacral junction. ALIGNMENT: Normal. VERTEBRAE: The lumbar vertebral body heights are maintained. There is no fracture. DISCS: The intervertebral disc space heights are preserved. There is no endplate irregularity or ost eophyte formation. POSTERIOR ELEMENTS: Intact. There is no pars interarticularis defect. HARDWARE: None in the spine. PARASPINAL SOFT TISSUES: Normal. PELVIS: Intact. OTHER: No other finding. IMPRESSION: No acute osseous abnormality of the lumbar spine. TECHNICAL DOCUMENTATION: JOB ID: [id number] [employer]- All Rights Reserved Reading location - IP/workstation name: [email or web address]
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
[2019-02-16 12:07] VITALS: BP 130/79
== END 2019-02-16 12:08 | disposition home or self-care (01) ==
LOC: ER 07:54
DX: M54.5 Low back pain (principal); I48.91 Unspecified atrial fibrillation; E78.00 Pure hypercholesterolemia, unspecified; I50.9 Heart failure, unspecified; I11.0 Hypertensive heart disease with heart failure; Z88.3 Allergy status to other anti-infective agents; Z87.442 Personal history of urinary calculi; Z87.820 Personal history of traumatic brain injury; Z98.51 Tubal ligation status
CPT/HCPCS: 72110; 99283

== ENCOUNTER 2019-05-27 08:15 | Emergency (ER) | payer SELFPAY ==
[2019-05-27] MEDS ORDERED: KETOROLAC TROMETHAMINE INJ/PF 30 MG/1 ML SDV IV ONE (09:17)
[2019-05-27] MEDS ORDERED: ONDANSETRON HCL INJ/PF 4 MG/2 ML SDV IV ONE (09:17)
[2019-05-27] MEDS ORDERED: NORMAL SALINE 1000 ML 1,000 ML IV ONE (09:17)
--- NOTE | 2019-05-27 09:21 | ER Document Report ---
ED GI/ - General Chief Complaint: Pelvic Pain Stated Complaint: NAUSEA Time Seen by Provider: 05/27/19 08:57 Primary Care Provider: BRANDY JOHNSON MD [ACTIVE STAFF] - Follow up in 3-5 days Mode of Arrival: Ambulatory Information source: Patient Notes: Patient presents complaining of nausea and vomiting for the past 3 weeks. Patient states she is able to keep fluids down but is unable to keep solids down. Patient states that she does have right lower pelvic pain that started 4 days ago. Patient does complain of feeling lightheaded. Patient denies any vaginal bleeding or discharge. Patient denies any urinary symptoms. Patient states she has had pain like this in the past when she had an ovarian cyst. TRAVEL OUTSIDE OF THE [place] IN LAST 30 DAYS: No COUNTRY TRAVELED TO/FROM: [facility] Patient complains to provider of: Abdominal pain, Vomiting Onset: Other - Vomiting x3 weeks, abdominal pain times the past 4 days Quality of pain: Achy Pain Level: 3 Location: Pelvis Vaginal bleeding (Compared to normal period): None Associated symptoms: Nausea, Vomiting. 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 Denies: Hx Peritoneal Dialysis Musculoskeletal Medical History: Reports Hx Musculoskeletal Deformity, Reports Hx Musculoskeletal Trauma Psychiatric Medical History: Reports: Hx Anxiety, Hx Depression Past Surgical History: Reports: Hx Section - x 2, Hx Orthopedic Surgery - Abscess, Hx Tubal Ligation - Immunizations Immunizations up to date: Yes Hx Diphtheria, Pertussis, Tetanus Vaccination: Yes Hx Pneumococcal Vaccination: 04/07/00 Review of Systems - Review of Systems Constitutional: No symptoms reported. denies: Fever EENT: No symptoms reported Cardiovascular: No symptoms reported. denies: Chest pain Respiratory: No symptoms reported. denies: Cough Gastrointestinal: Abdominal pain, Nausea, Vomiting Genitourinary: No symptoms reported. denies: Burning, Dysuria Female Genitourinary: Heavy/abnormal periods. denies: Vaginal discharge, Vaginal bleeding Musculoskeletal: No symptoms reported. denies: Back pain Skin: No symptoms reported Hematologic/Lymphatic: No symptoms reported Neurological/Psychological: No symptoms reported. denies: Headaches Physical Exam - Vital signs Vitals: Temp Pulse Resp BP Pulse Ox 98.2 F 86 18 146/82 H 100 05/27/19 08:37 05/27/19 08:37 05/27/19 08:37 05/27/19 08:37 05/27/19 08:37 - General General appearance: Appears well, Alert In distress: None - HEENT Head: Normocephalic, Atraumatic Eyes: Normal Conjunctiva: Normal Nasal: Normal Mouth/Lips: Normal Neck: Normal, Supple - Respiratory Respiratory status: No respiratory distress Chest status: Nontender Breath sounds: Normal. No: Rales, Rhonchi, Stridor, Wheezing Chest palpation: Normal - Cardiovascular Rhythm: Regular Heart sounds: S1 appreciated, S2 appreciated Murmur: No - Abdominal Inspection: Morbidly Obese Distension: No distension Bowel sounds: Normal Tenderness: Tender - Right inguinal tenderness Organomegaly: No organomegaly - Genitourinary External exam: Normal Speculum exam: Cervix closed, Vaginal discharge Vaginal bleeding: None Bimanuel exam: Adnexal tenderness - right. No: Cervical motion tender - Back Back: Normal, Nontender. No: CVA tenderness - Extremities General upper extremity: Normal inspection, Nontender, Normal ROM General lower extremity: Normal inspection, Nontender, Normal ROM - Neurological Neuro grossly intact: Yes Cognition: Normal Arthur Coma Scale Eye Opening: Spontaneous [place] Coma Scale Verbal: Oriented Arthur Coma Scale Motor: Obeys Commands Arthur Coma Scale Total: 15 - Psychological Associated symptoms: Normal affect, Normal mood - Skin Skin Temperature: Warm Skin Moisture: Dry Skin Color: Normal Course - Re-evaluation Re-evalutation: 05/27/19 12:58 Patient is eating trays of food without any emesis. Patient reports feeling better at this time. Patient advised of incidental anemia noted. Patient without any active bleeding. Patient states that she has been treated with oral contraceptive pills for heavy irregular vaginal bleeding. Patient states that she is seen by Dr. Johnson for this problem. 05/27/19 13:24 Patient with known history of heavy menses as well as anemia that her tennis instructor had been treating with oral contraceptive pills. Consulted with Dr. Curtis regarding patient presentation. Advises starting patient on iron and having her follow-up with her tennis instructor. Ultrasound reviewed, no concern for torsion. Patient without any fever or leukocytosis, no concern for appendicitis at this time. Patient does have incidental small ovarian cyst on ultrasound. Patient presents with abdominal pain without signs of peritonitis or other life-threatening or serious etiology. Patient appears stable for discharge and has been instructed to return immediately if the symptoms worsen in any way. - Vital Signs Vital signs: Temp Pulse Resp BP Pulse Ox 98.5 F 98 17 127/89 H 100 05/27/19 13:40 05/27/19 13:40 05/27/19 13:40 05/27/19 13:40 05/27/19 13:40 - Laboratory Result Diagrams: 05/27/19 10:45 05/27/19 10:45 Laboratory results interpreted by me: 05/27/19 05/27/19 10:45 10:45 Hgb 7.4 L Hct 26.6 L MCV 60 L MCH 16.7 L MCHC 28.0 L RDW 18.7 H Sodium 136.2 L BUN 6 L Labs- Entire Visit 05/27/19 05/27/19 05/27/19 09:56 09:56 10:45 WBC 6.8 RBC 4.46 Hgb 7.4 L Hct 26.6 L MCV 60 L MCH 16.7 L MCHC 28.0 L RDW 18.7 H Plt Count 203 Lymph % (Auto) 36.2 [place] % (Auto) 7.1 Eos % (Auto) 5.0 Baso % (Auto) 0.9 Absolute Neuts (auto) 3.4 Absolute Lymphs (auto) 2.5 Absolute Monos (auto) 0.5 Absolute Eos (auto) 0.3 Absolute Basos (auto) 0.1 Seg Neutrophils % 50.8 Large Platelets PRESENT Platelet Comment ADEQUATE Polychromasia 1+ Hypochromasia SLIGHT Anisocytosis 2+ Microcytosis 4+ Target Cells SLIGHT Ovalocytes SLIGHT Sodium Potassium Chloride Carbon Dioxide Anion Gap BUN Creatinine Est GFR ( Amer) Est GFR (MDRD) Non-Af Glucose Calcium Total Bilirubin Direct Bilirubin Neonat Total Bilirubin Neonat Direct Bilirubin Neonat Indirect Bili AST ALT Alkaline Phosphatase Total Protein Albumin Serum HCG, Qual Trichomonas (Wet Prep) NO TRICHOMONAS SEEN Vaginal WBC NO WBCS SEEN Vaginal RBC NO RBCS SEEN Vaginal Yeast NO YEAST SEEN Chlamydia DNA (PCR) NOT DETECTED N.gonorrhoeae DNA (PCR) NOT DETECTED 05/27/19 05/27/19 10:45 10:45 WBC RBC Hgb Hct MCV MCH MCHC RDW Plt Count Lymph % (Auto) [place] % (Auto) Eos % (Auto) Baso % (Auto) Absolute Neuts (auto) Absolute Lymphs (auto) Absolute Monos (auto) Absolute Eos (auto) Absolute Basos (auto) Seg Neutrophils % Large Platelets Platelet Comment Polychromasia Hypochromasia Anisocytosis Microcytosis Target Cells Ovalocytes Sodium 136.2 L Potassium 4.3 Chloride 105 Carbon Dioxide 24 Anion Gap 7 BUN 6 L Creatinine 0.61 Est GFR ( Amer) > 60 Est GFR (MDRD) Non-Af > 60 Glucose 77 Calcium 8.9 Total Bilirubin 0.3 Direct Bilirubin 0.0 Neonat Total Bilirubin Not Reportable Neonat Direct Bilirubin Not Reportable Neonat Indirect Bili Not Reportable AST 19 ALT 10 Alkaline Phosphatase 68 Total Protein 7.7 Albumin 3.9 Serum HCG, Qual NEGATIVE Trichomonas (Wet Prep) Vaginal WBC Vaginal RBC Vaginal Yeast Chlamydia DNA (PCR) N.gonorrhoeae DNA (PCR) - Diagnostic Test Radiology reviewed: Reports reviewed Discharge - Discharge Clinical Impression: Anemia Qualifiers: Anemia type: unspecified type Qualified Code(s): D64.9 - Anemia, unspecified Abdominal pain Qualifiers: Abdominal location: unspecified location Qualified Code(s): R10.9 - Unspecified abdominal pain Ovarian cyst Qualifiers: Laterality: bilateral Qualified Code(s): N83.201 - Unspecified ovarian cyst, right side Nausea and vomiting Qualifiers: Vomiting type: unspecified Vomiting Intractability: non-intractable Qualified Code(s): R11.2 - Nausea with vomiting, unspecified Condition: Stable Disposition: HOME, SELF-CARE Instructions: Anemia ([facility]), Antinausea Medication ([facility]), Ovarian Cyst ([facility]), Pelvic Pain ([facility]), Vomiting ([facility]) Additional Instructions: Return immediately for any new or worsening symptoms Followup with your primary care provider, call tomorrow to make a followup appointment Follow up with your tennis instructor for further management of your heavy menses. Prescriptions: Ferrous Sulfate [Feosol 325 mg Tablet] 325 mg PO BID #60 tablet Ondansetron [Zofran Odt 4 mg Tablet] 1 tab PO Q6H #15 tab.rapdis Forms: Return to Work Referrals: BRANDY JOHNSON MD [ACTIVE STAFF] - Follow up in 3-5 days
[2019-05-27 10:15] LABS: RBCS (WET MOUNT) NO RBCS SEEN; T.VAGINALIS (WET MOUNT) NO TRICHOMONAS SEEN; WBCS (WET MOUNT) NO WBCS SEEN; YEAST (WET MOUNT) NO YEAST SEEN
--- NOTE | 2019-05-27 10:56 | RADIOLOGY REPORT (SQ) ---
EXAM DESCRIPTION: U/S NON OB PEL W/DOPPLER COMPLETED DATE/TIME: 05/27/2019 10:30 am REASON FOR STUDY: R lower pelvic pain COMPARISON: None. TECHNIQUE: Dynamic and static grayscale images acquired of the pelvis via transabdominal approach an d recorded on PACS. Additional selected color Doppler and spectral images recorded. LIMITATIONS: Body habitus. FINDINGS: UTERUS: 2.5 cm fibroid. ENDOMETRIAL STRIPE: No focal or generalized thickening. No masses. CERVIX: No nabothian cysts. RIGHT OVARY AND DOPPLER: Normal size. 3 cm cyst. No worrisome masses. Normal arterial vascular flow without evidence for torsion. LEFT OVARY AND DOPPLER: Normal size. 2.4 cm cyst. No worrisome masses. Normal arterial vascular pretty w without evidence for torsion. FREE FLUID: None noted. OTHER: No other significant finding. MEASUREMENTS: UTERUS: 10.9 x 7.8 x 5.4 cm ENDOMETRIAL STRIPE: 6 mm RIGHT OVARY: 2.4 x 2.8 x 2.3 cm LEFT OVARY: 3.4 x 2.9 x 2.7 cm IMPRESSION: Uterine fibroid. Small ovarian cysts. TECHNICAL DOCUMENTATION: JOB ID: [id number] 2010 [employer]- All Rights Reserved Rev-08/22 Reading location - IP/workstation name: [email or web address]
[2019-05-27 10:59] LABS: ABSOLUTE BASOPHILS # (AUTO) 0.1 10^3/uL (0.0-0.2); ABSOLUTE EOSINOPHILS # (AUTO) 0.3 10^3/uL (0.0-0.6); ABSOLUTE LYMPHOCYTES (AUTO) 2.5 10^3/uL (0.5-4.7); ABSOLUTE MONOCYTES (AUTO) 0.5 10^3/uL (0.1-1.4); ABSOLUTE NEUT (AUTO) 3.4 10^3/uL (1.7-8.2); BASOPHILS % (AUTO) 0.9 % (0-2); HEMATOCRIT 26.6 % (36.0-47.0); LYMPHOCYTES % (AUTO) 36.2 % (13-45); MEAN CORPUSCULAR HEMOGLOBIN 16.7 pg (27.0-33.4); MEAN CORPUSCULAR VOLUME 60 fl (80-97); MONOCYTES % (AUTO) 7.1 % (3-13); PLATELET COUNT 203 10^3/uL (150-450); RED BLOOD COUNT 4.46 10^6/uL (3.72-5.28); RED CELL DISTRIBUTION WIDTH 18.7 % (11.5-14.0); SEGMENTED NEUTROPHILS % (AUTO) 50.8 % (42-78); TOTAL CELLS COUNTED % (AUTO) 100 %; WHITE BLOOD COUNT 6.8 10^3/uL (4.0-10.5)
[2019-05-27] MEDS ORDERED: ONDANSETRON HCL INJ/PF 4 MG/2 ML SDV ONE (11:00)
[2019-05-27 11:12] LABS: ALBUMIN 3.9 g/dL (3.5-5.0); ALKALINE PHOSPHATASE 68 U/L (38-126); ANION GAP 7 (5-19); ASPARTATE AMINO TRANSFERASE 19 U/L (14-36); BILIRUBIN,TOTAL 0.3 mg/dL (0.2-1.3); BLOOD UREA NITROGEN 6 mg/dL (7-20); CALCIUM 8.9 mg/dL (8.4-10.2); CARBON DIOXIDE 24 mmol/L (22-30); CHLORIDE 105 mmol/L (98-107); GLUCOSE 77 mg/dL (75-110); POTASSIUM 4.3 mmol/L (3.6-5.0)
[2019-05-27 11:13] LABS: TOTAL PROTEIN 7.7 g/dL (6.3-8.2)
[2019-05-27 11:35] LABS: HEMOGLOBIN 7.4 g/dL (12.0-15.5)
[2019-05-27 11:38] LABS: ANISOCYTOSIS 2+; PLATELET COMMENT ADEQUATE
[2019-05-27 11:39] LABS: HYPOCHROMASIA SLIGHT; PLATELET LARGE PRESENT; POLYCHROMASIA 1+
[2019-05-27 11:40] LABS: OVALOCYTES SLIGHT; TARGET CELLS SLIGHT
[2019-05-27 11:47] LABS: CHLAM PCR NOT DETECTED (NOT DETECT)
[2019-05-27 13:41] VITALS: BP 127/89
== END 2019-05-27 13:54 | disposition home or self-care (01) ==
LOC: ER 08:15
DX: N83.201 Unspecified ovarian cyst, right side (principal); D64.9 Anemia, unspecified; R11.2 Nausea with vomiting, unspecified; R10.9 Unspecified abdominal pain; R10.2 Pelvic and perineal pain; Z88.3 Allergy status to other anti-infective agents; Z79.3 Long term (current) use of hormonal contraceptives
CPT/HCPCS: 36415; 87210; 84703; 85025; 80053; 87491; 87591; 76856; 93976; J1885; J2405; J7030

== ENCOUNTER 2019-06-02 08:19 | Emergency (ER) | payer SELFPAY ==
--- NOTE | 2019-06-02 09:58 | ER Document Report ---
ED Medical Screen (RME) - General Chief Complaint: Dizziness Stated Complaint: LIGHT HEADED,SHORT OF BREATH Time Seen by Provider: 06/02/19 09:50 Notes: HPI: 28-year-old female presenting to the emergency department for evaluation of dizziness and lightheadedness over the last week. Patient states she was seen 1 week ago for heavy vaginal bleeding. States she was told her blood counts were low, she has a history of chronic anemia for which she takes iron pills 3 times daily. States that she feels like the bleeding has continued throughout the week and that she might need to be transfused which has happened in the past. 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 States that she does have history of fibroids and ovarian cysts I have greeted and performed a rapid initial assessment of this patient. A c omprehensive ED assessment and evaluation of the patient, analysis of test results and completion of the medical decision making process will be conducted by additional ED providers PHYSICAL EXAMINATION: GENERAL: Well-appearing, well-nourished and in no acute distress. HEAD: Atraumatic, normocephalic. EYES: sclera anicteric, conjunctiva are pale. ENT: Moist mucous membranes. NECK: Normal range of motion LUNGS: Normal work of breathing, clear to auscultation HEART: 2+ radial pulses bilaterally, regular rate and rhythm ABD: limited by positioning for exam in triage. Morbidly obese. No tenderness on palpation EXTREMITIES: no pitting or edema. No cyanosis. NEUROLOGICAL: No focal neurological deficits. Moves all extremities spontaneously and on command. PSYCH: Normal mood, normal affect. SKIN: Warm, Dry, normal turgor, no rashes or lesions noted. Slight pallor noted TRAVEL OUTSIDE OF THE [place] IN LAST 30 DAYS: No COUNTRY TRAVELED TO/FROM: [place] - Related Data Allergies/Adverse Reactions: azithromycin [From Zithromax Z-Lukas] Allergy (Verified 01/11/19 10:28) Home Medications: Iron pills Past Medical History - Social History Frequency of alcohol use: None Drug Abuse: None - Past Medical History Cardiac Medical History: Reports: Hx Atrial Fibrillation, Hx Congestive Heart Failure, Hx Hypercholesterolemia, Hx Hypertension Denies: Hx DVT, Hx Heart Attack, Hx Pulmonary Embolism Pulmonary Medical History: Reports: Hx Asthma, Hx Bronchitis, Hx Pneumonia Neurological Medical History: Reports: Hx Migraine Renal/ Medical History: Reports: Hx Kidney Stones, Hx Ovarian Cysts. Denies: Hx Peritoneal Dialysis Musculoskeltal Medical History: Reports Hx Musculoskeletal Deformity, Reports Hx Musculoskeletal Trauma Psychiatric Medical History: Reports: Hx Anxiety, Hx Depression Traumatic Medical History: Reports: Hx Spine Fracture, Hx Traumatic Brain Injury Past Surgical History: Reports: Hx Section - x 2, Hx Kidney (Renal Surgery) - nephrectomy- followed closetly on tacrolimus and mtx by , Hx Orthopedic Surgery - Abscess, Hx Tubal Ligation - Immunizations Immunizations up to date: Yes Hx Diphtheria, Pertussis, Tetanus Vaccination: Yes Physical Exam - Vital signs Vitals: Temp Pulse Resp BP Pulse Ox 98.3 F 95 20 138/80 H 100 06/02/19 08:22 06/02/19 08:22 06/02/19 08:22 06/02/19 08:22 06/02/19 08:22 Course - Vital Signs Vital signs: Temp Pulse Resp BP Pulse Ox 98.3 F 95 20 138/80 H 100 06/02/19 08:22 06/02/19 08:22 06/02/19 08:22 06/02/19 08:22 06/02/19 08:22
[2019-06-02 11:33] LABS: ABSOLUTE BASOPHILS # (AUTO) 0.1 10^3/uL (0.0-0.2); ABSOLUTE EOSINOPHILS # (AUTO) 0.4 10^3/uL (0.0-0.6); ABSOLUTE LYMPHOCYTES (AUTO) 2.2 10^3/uL (0.5-4.7); ABSOLUTE MONOCYTES (AUTO) 0.6 10^3/uL (0.1-1.4); ABSOLUTE NEUT (AUTO) 4.2 10^3/uL (1.7-8.2); BASOPHILS % (AUTO) 1.5 % (0-2); EOSINOPHILS % (AUTO) 5.4 % (0-6); HEMATOCRIT 25.5 % (36.0-47.0); LYMPHOCYTES % (AUTO) 29.5 % (13-45); MEAN CORPUSCULAR HEMOGLOBIN 17.1 pg (27.0-33.4); MEAN CORPUSCULAR HGB CONC 28.7 g/dL (32.0-36.0); MEAN CORPUSCULAR VOLUME 60 fl (80-97); MONOCYTES % (AUTO) 8.3 % (3-13); PLATELET COUNT 218 10^3/uL (150-450); RED BLOOD COUNT 4.29 10^6/uL (3.72-5.28); SEGMENTED NEUTROPHILS % (AUTO) 55.3 % (42-78); TOTAL CELLS COUNTED % (AUTO) 100 %; WHITE BLOOD COUNT 7.5 10^3/uL (4.0-10.5)
[2019-06-02 11:50] LABS: ALKALINE PHOSPHATASE 65 U/L (38-126); ANION GAP 8 (5-19); ASPARTATE AMINO TRANSFERASE 19 U/L (14-36); BILIRUBIN,TOTAL 0.2 mg/dL (0.2-1.3); BLOOD UREA NITROGEN 9 mg/dL (7-20); CARBON DIOXIDE 22 mmol/L (22-30); CHLORIDE 107 mmol/L (98-107); GLUCOSE 75 mg/dL (75-110); POTASSIUM 4.5 mmol/L (3.6-5.0); TOTAL PROTEIN 7.8 g/dL (6.3-8.2)
[2019-06-02 12:08] LABS: ANISOCYTOSIS 2+; HYPOCHROMASIA 2+; POLYCHROMASIA 1+
[2019-06-02 12:09] LABS: POIKILOCYTOSIS SLIGHT; TEAR DROP CELLS SLIGHT
[2019-06-02 12:11] LABS: HEMOGLOBIN 7.3 g/dL (12.0-15.5); PLATELET COMMENT ADEQUATE
--- NOTE | 2019-06-02 14:11 | ER Document Report ---
ED GI/ - General Chief Complaint: Dizziness Stated Complaint: LIGHT HEADED,SHORT OF BREATH Time Seen by Provider: 06/02/19 09:50 Primary Care Provider: DARION HANSON MD [ACTIVE PROVISIONAL STAFF] - Follow up tomorrow Mode of Arrival: Ambulatory Information source: Patient Notes: 28-year-old female presented to ED for complaint of dizziness lightheadedness and weakness over the last week. She states she was seen in her about a week ago with heavy vaginal bleeding and had a low H&H and was told that due to chronic anemia they did not give her a unit of blood but they did put her on iron pills. She states she has been having this bleeding with every menstrual cycle for many years it is just getting worse and worse and she is getting weaker. She states she has been diagnosed with fibroids and ovarian cyst and has been to the [facility] multiple times but they did not want to do a hysterectomy due to her age. She is alert oriented respirations regular nonlabored speaking in full sentences. TRAVEL OUTSIDE OF THE [place] 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 she states she is not bleeding near as much as she w Associated symptoms: Dizzy, Lightheaded, Other - Weakness Exacerbated by: Movement, Walking Relieved by: Denies Similar symptoms previously: Yes Recently seen / treated by doctor: Yes - Related Data Allergies/Adverse Reactions: azithromycin [From Zithromax Z-Lukas] Allergy (Verified 06/02/19 11:24) Home Medications: Iron pills Past Medical History - General Information source: Patient - Social History Smoking Status: Never Smoker Frequency of alcohol use: None Drug Abuse: None Lives with: Family Family History: Arthritis, CAD - Patient's father had CABG in his 40s, DM, Hyperlipidemia, Hypertension, Malignancy Patient has suicidal ideation: No Patient has homicidal ideation: No - Past Medical History Cardiac Medical History: Reports: Hx Atrial Fibrillation, Hx Congestive Heart Failure, Hx Hypercholesterolemia, Hx Hypertension Pulmonary Medical History: Reports: Hx Asthma, Hx Bronchitis, Hx Pneumonia EENT Medical History: Reports: None Neurological Medical History: Reports: Hx Migraine Endocrine Medical History: Reports: None Renal/ Medical History: Reports: Hx Kidney Stones, Hx Ovarian Cysts, Other - Fibroid uterus GI Medical History: Reports: None Musculoskeletal Medical History: Reports Hx Musculoskeletal Deformity, Reports Hx Musculoskeletal Trauma Skin Medical History: Reports None Psychiatric Medical History: Reports: Hx Anxiety, Hx Depression Traumatic Medical History: Reports: Hx Spine Fracture, Hx Traumatic Brain Injury Past Surgical History: Reports: Hx Section - x 2, Hx Kidney (Renal Surgery) - nephrectomy- followed closetly on tacrolimus and mtx by , Hx Orthopedic Surgery - Abscess, Hx Tubal Ligation - Immunizations Immunizations up to date: Yes Hx Diphtheria, Pertussis, Tetanus Vaccination: Yes Hx Pneumococcal Vaccination: 04/07/00 Review of Systems - Review of Systems Constitutional: No symptoms reported EENT: No symptoms reported Cardiovascular: Dizziness, Lightheaded Respiratory: No symptoms reported Gastrointestinal: No symptoms reported, Abdominal pain Genitourinary: No symptoms reported Female Genitourinary: No symptoms reported Musculoskeletal: No symptoms reported Skin: No symptoms reported Hematologic/Lymphatic: No symptoms reported Neurological/Psychological: No symptoms reported Physical Exam - Vital signs Vitals: Temp Pulse Resp BP Pulse Ox 98.3 F 95 20 138/80 H 100 06/02/19 08:22 06/02/19 08:22 06/02/19 08:22 06/02/19 08:22 06/02/19 08:22 Interpretation: Normal - General General appearance: Appears well, Alert - HEENT Head: Normocephalic, Atraumatic Eyes: Normal Pupils: PERRL - Respiratory Respiratory status: No respiratory distress Chest status: Nontender Breath sounds: Normal Chest palpation: Normal - Cardiovascular Rhythm: Regular Heart sounds: Normal auscultation Murmur: No - Abdominal Inspection: Normal Distension: No distension Bowel sounds: Normal Tenderness: Nontender Organomegaly: No organomegaly - Rectal Tenderness: No Stool: Heme negative Hemorrhoids: None - Back Back: Normal, Nontender - Extremities General upper extremity: Normal inspection, Nontender, Normal color, Normal ROM, Normal temperature General lower extremity: Normal inspection, Nontender, Normal color, Normal ROM, Normal temperature, Normal weight bearing. No: Gris's sign - Neurological Neuro grossly intact: Yes Cognition: Normal Orientation: AAOx4 Arthur Coma Scale Eye Opening: Spontaneous [place] Coma Scale Verbal: Oriented [place] Coma Scale Motor: Obeys Commands Arthur Coma Scale Total: 15 Speech: Normal Motor strength normal: LUE, RUE, LLE, RLE Sensory: Normal - Psychological Associated symptoms: Normal affect, Normal mood - Skin Skin Temperature: Warm Skin Moisture: Dry Skin Color: Normal Course - Re-evaluation Re-evalutation: 06/03/19 02:44 Patient states she was feeling much better after her transfusion she was able to get up and walk around with no dizziness lightheadedness or headache. I just discussed this patient with [facility]. She did give me an appointment for the patient to follow-up on Friday at 1030 at the [facility] office. She did recommend I start the patient on Sprintec's which I did give her a prescription for the spandex. Patient verbalized understanding and agreement with discharge planning and patient was discharged home. - Vital Signs Vital signs: Temp Pulse Resp BP Pulse Ox 98.8 F 94 11 L 110/73 98 06/03/19 01:56 06/03/19 01:56 06/03/19 01:56 06/03/19 01:56 06/03/19 01:56 - Laboratory Result Diagrams: 06/03/19 00:47 06/02/19 11:00 Laboratory results interpreted by me: 06/02/19 06/02/19 06/02/19 11:00 11:00 11:55 Hgb 7.3 L Hct 25.5 L MCV 60 L MCH 17.1 L MCHC 28.7 L RDW 19.0 H Sodium 136.6 L Crossmatch See Detail 06/03/19 00:47 Hgb 9.2 L Hct 30.2 L MCV 63 L MCH 19.1 L MCHC 30.6 L RDW 23.9 H Sodium Crossmatch Discharge - Discharge Clinical Impression: Dizziness Anemia Qualifiers: Anemia type: unspecified type Qualified Code(s): D64.9 - Anemia, unspecified Heavy menstrual bleeding Qualifiers: Menorrhagia type: with regular cycle Qualified Code(s): N92.0 - Excessive and frequent menstruation with regular cycle Abdominal pain Qualifiers: Abdominal location: lower abdomen, unspecified Qualified Code(s): R10.30 - Lower abdominal pain, unspecified Condition: Stable Disposition: HOME, SELF-CARE Additional Instructions: VAGINAL BLEEDING: You are having an episode of abnormal bleeding. Causes of abnormal vaginal bleeding can include miscarriage or tubal , tumors such as cancer or benign fibroids, medication effects, or hormone imbalance. Testing can eliminate unsuspected , tumors, or infection as a cause. "Dysfunctional uterine bleeding" is due to hormone imbalance, and is especially common at times when the normal cycle is disturbed -- whether by recent , use of control pills or hormones, or impending menopause. If the bleeding is innocent, most commonly a short course of hormones is given to restore the uterus to normal. Sometimes, the normal menstrual cycle corrects itself naturally. Sometimes, brief hormone therapy, or even a D&C is required. Your physician will advise you. Treatment for anemia may be required if bleeding is severe. You should rest and avoid intercourse until the bleeding is controlled. Call the doctor or return for re-examination if you feel faint, have increasing pain, or have a major increase in the amount of bleeding. FIBROIDS: Fibroids are benign growths or tumors in the uterus. They can cause enlargement of the uterus, irregular bleeding, severe bleeding with periods, and abdominal pain. Anemia may result if periods are heavy. Fibroids tend to grow until menopause, then slowly shrink. If fibroids cause severe symptoms, they can be treated surgically. Call or return if vaginal bleeding or pain becomes severe. You have been started on Sprintec. Please take the active pills continuously do not take the inert pills skip them and continue with the active pills. Keep your appointment with Dr. Hanson in the morning at 1030 as we discussed. FOLLOW-UP CARE: If you have been referred to a physician for follow-up care, call the physici ans office for an appointment as you were instructed or within the next two days. If you experience worsening or a significant change in your symptoms (very heavy bleeding with large clots of blood, passage of tissue, more severe abdominal / pelvic pain or cramping, feeling faint or severe weakness, fever, etc.), notify the physician immediately or return to the Emergency Department at any time for re-evaluation. Prescriptions: Norgestimate-Ethinyl Estradiol [Sprintec 28 Day Tablet] 1 each PO DAILY #28 tablet Forms: Return to School, Return to Work Referrals: DARION HANSON MD [ACTIVE PROVISIONAL STAFF] - Follow up tomorrow
[2019-06-02] MEDS: NORMAL SALINE 250 ML IV PRN ×2 (18:54→21:30)
[2019-06-03 01:10] LABS: ABSOLUTE BASOPHILS # (AUTO) 0.1 10^3/uL (0.0-0.2); ABSOLUTE EOSINOPHILS # (AUTO) 0.3 10^3/uL (0.0-0.6); ABSOLUTE LYMPHOCYTES (AUTO) 2.6 10^3/uL (0.5-4.7); ABSOLUTE MONOCYTES (AUTO) 0.9 10^3/uL (0.1-1.4); ABSOLUTE NEUT (AUTO) 6.1 10^3/uL (1.7-8.2); BASOPHILS % (AUTO) 0.7 % (0-2); EOSINOPHILS % (AUTO) 3.3 % (0-6); HEMATOCRIT 30.2 % (36.0-47.0); HEMOGLOBIN 9.2 g/dL (12.0-15.5); LYMPHOCYTES % (AUTO) 26.4 % (13-45); MEAN CORPUSCULAR HEMOGLOBIN 19.1 pg (27.0-33.4); MEAN CORPUSCULAR HGB CONC 30.6 g/dL (32.0-36.0); MEAN CORPUSCULAR VOLUME 63 fl (80-97); MONOCYTES % (AUTO) 8.8 % (3-13); PLATELET COUNT 201 10^3/uL (150-450); RED BLOOD COUNT 4.84 10^6/uL (3.72-5.28); RED CELL DISTRIBUTION WIDTH 23.9 % (11.5-14.0); SEGMENTED NEUTROPHILS % (AUTO) 60.8 % (42-78); TOTAL CELLS COUNTED % (AUTO) 100 %
[2019-06-03 01:30] LABS: ANISOCYTOSIS 3+; HYPOCHROMASIA 1+; PLATELET COMMENT ADEQUATE; POIKILOCYTOSIS SLIGHT; POLYCHROMASIA SLIGHT
[2019-06-03 01:31] LABS: TEAR DROP CELLS SLIGHT
[2019-06-03 01:59] VITALS: BP 110/73
== END 2019-06-03 01:56 | disposition home or self-care (01) ==
LOC: ER 08:19
DX: R42 Dizziness and giddiness (principal); D64.9 Anemia, unspecified; N92.0 Excessive and frequent menstruation with regular cycle; R10.30 Lower abdominal pain, unspecified; R06.02 Shortness of breath; R53.1 Weakness; I50.9 Heart failure, unspecified; I11.0 Hypertensive heart disease with heart failure; J45.909 Unspecified asthma, uncomplicated
CPT/HCPCS: 99284; 96360; 96361; 86900; 86901; 36415; 36430; 86850; 84703; 85025; 80053; 86920; P9016; J7050

== ENCOUNTER 2019-07-10 11:23 | Emergency (ER) | payer SELFPAY ==
--- NOTE | 2019-07-10 11:54 | ER Document Report ---
HPI - HPI Onset: Other - July 08, 2019 Onset/Duration: Gradual Context: 28-year-old morbidly obese BMI of 59.4, 147.4 kg female presented to [facility] for coronavirus valuation. She denies any fevers. She states she has felt hot, has had chills muscle aches, runny nose, no sore throat, has had a cough and with shortness of breath. States she has had nausea and vomiting and headache since the second. The patient was evaluated during the global Covid 19 pandemic, and that diagnosis was suspected/considered upon their initial presentation. Their evaluation, treatment and testing was consistent with current guidelines for patients who present with complaints or symptoms that may be related to Covid 19. - REPRODUCTIVE Reproductive: DENIES: : Past Medical History - General Information source: Patient - Social History Smoking Status: Never Smoker Family History: Arthritis, CAD - Patient's father had CABG in his 40s, DM, Hyperlipidemia, Hypertension, Malignancy - Past Medical History Cardiac Medical History: Reports: Hx Atrial Fibrillation, Hx Congestive Heart Failure, Hx Hypercholesterolemia, Hx Hypertension Pulmonary Medical History: Reports: Hx Asthma, Hx Bronchitis, Hx Pneumonia Neurological Medical History: Reports: Hx Migraine Renal/ Medical History: Reports: Hx Kidney Stones, Hx Ovarian Cysts. Denies: Hx Peritoneal Dialysis Musculoskeletal Medical History: Reports Hx Musculoskeletal Deformity, Reports Hx Musculoskeletal Trauma Psychiatric Medical History: Reports: Hx Anxiety, Hx Depression Traumatic Medical History: Reports: Hx Spine Fracture, Hx Traumatic Brain Injury Past Surgical History: Reports: Hx Section - x 2, Hx Kidney (Renal Surgery) - nephrectomy- followed closetly on tacrolimus and mtx by , Hx Orthopedic Surgery - Abscess, Hx Tubal Ligation - Immunizations Immunizations up to date: Yes Hx Diphtheria, Pertussis, Tetanus Vaccination: Yes Hx Pneumococcal Vaccination: 04/07/00 Vertical Provider Document - CONSTITUTIONAL Agree With Documented VS: Yes Exam Limitations: No Limitations General Appearance: WD/WN, No Apparent Distress Notes: Full physical exam could not be performed due to covid 19 isolation protocols. Constitutional: Nontoxic appearance, no acute distress Eyes: Nonicteric, extraocular movements intact, sclera clear rhinorrhea, postnasal drip Cardiovascular: No JVD Respiratory: Nonlabored breathing, no use of accessory muscles, no tachypnea nonproductive cough Gastrointestinal: Abdomen not distended Muculoskeletal: Moves all extremities well, normal gait Skin: Normal color Neuro: Awake alert oriented, normal speech Psych: Normal mood and affect Morbidly obese - INFECTION CONTROL TRAVEL OUTSIDE OF THE [place] IN LAST 30 DAYS: No - HEENT HEENT: Atraumatic, Normocephalic, PERRLA Notes: Patient did demonstrate rhinorrhea and postnasal drip. - NECK Neck: Normal Inspection - RESPIRATORY Respiratory: Breath Sounds Normal, No Respiratory Distress, Chest Non-Tender - CARDIOVASCULAR Cardiovascular: Regular Rate, Regular Rhythm - GI/ABDOMEN Gastrointestinal: Abdomen Non-Tender, No Organomegaly - NEURO Level of Consciousness: Awake, Alert, Appropriate Course - Re-evaluation Re-evalutation: 07/10/19 11:53 Patient presents with upper respiratory symptoms not worrisome for possible Covid 19. Patient does have emergency worring symptoms such as difficulty breathing, shortness of breath, chest pain, pressure, confusion or cyanosis. Patient appears suitable for discharge. Patient's vital signs are stable and patient is nontoxic in appearance. Good return precautions have been discussed with patient, patient verbalized understanding and is agreeable with discharge plan of care at this time. Patient notified of Negative results for Rapid Flu (A & B) and Rapid Strep. Patient also advised of PENDING results for Throat Culture and COVID- 19. Discharge - Discharge Clinical Impression: Viral respiratory illness, Jain virus testing pending Condition: Stable Disposition: HOME, SELF-CARE Additional Instructions: Patient was provided with discharge information including: As a person under investigation for Covid 19, the [place] department of Health and Human Services, division of public health advises you to adhere to the following guidance until your test results are reported to you. If your test result is positive, you will receive additional information from your provider and your local health department at that time. Remain at home until you are cleared by the health provider or public health authorities. Keep a log of visitors to your home, notify any visitors to your home of your isolation status. If you plan to move to a new address or leave the county, notify the local health department in your County. Call your doctor or seek care if you have an urgent medical need. Before seeking medical care, call ahead to get instructions from the provider before arriving at the medical office clinic or hospital. Notify them that you are being tested for the virus that causes Covid 19 so that arrangements can be made, as necessary, to prevent transmission to others in the healthcare setting. Next, notify the local health department in your county. If a medical emergency arises and you need to call 911, inform the first responders that you are being tested for the virus that causes Covid 19. Next, notify the local health department in your county. Referrals: LOCALMD,NO [Primary Care Provider] - Follow up as needed
[2019-07-10 12:13] VITALS: BP 113/60
[2019-07-10 13:38] LABS: A TYPE INFLUENZA AG NEGATIVE (NEGATIVE); B INFLUENZA AG NEGATIVE (NEGATIVE)
== END 2019-07-10 15:00 | disposition home or self-care (01) ==
LOC: EDRDC 11:23
DX: B34.9 Viral infection, unspecified (principal); R09.89 Other specified symptoms and signs involving the circulatory and respiratory systems; Z20.828 Contact with and (suspected) exposure to other viral communicable diseases; I48.91 Unspecified atrial fibrillation; I50.9 Heart failure, unspecified; E78.00 Pure hypercholesterolemia, unspecified; I11.0 Hypertensive heart disease with heart failure; Z87.442 Personal history of urinary calculi
CPT/HCPCS: 87070; 87635; 87804; 87880; 99211

== ENCOUNTER → 2019-08-27 | Outpatient (CLI) | payer SELFPAY ==
--- NOTE | 2019-08-27 09:57 | RADIOLOGY REPORT (SQ) ---
EXAM DESCRIPTION: LUMBAR SPINE 2 VIEWS IMAGES COMPLETED DATE/TIME: 08/27/2019 9:36 am REASON FOR STUDY: LOW BACK PAIN M54.5 LOW BACK PAIN COMPARISON: 02/16/2019 NUMBER OF VIEWS: Two views. TECHNIQUE: AP and lateral radiographic images acquired of the lumbar spine. LIMITATIONS: None. FINDINGS: MINERALIZATION: Normal. SEGMENTATION: Normal. No transitional anatomy. ALIGNMENT: Normal. VERTEBRAE: Maintained height. No fracture or worrisome bone lesion. DISCS: Preserved height. No significant osteophytes or end plate irregularity. POSTERIOR ELEMENTS: Pedicles and facets are intact. No pars defect or posterior arch defects. HARDWARE: None in the spine. PARASPINAL SOFT TISSUES: Normal. PELVIS: Intact as visualized. No fractures or worrisome bone lesions. SI joints intact. OTHER: No other significant finding. IMPRESSION: NORMAL 2 VIEW LUMBAR SPINE. TECHNICAL DOCUMENTATION: JOB ID: [id number] [employer]- All Rights Reserved Reading location - IP/workstation name: [email or web address]
== END ==
LOC: OD 09:14
PROVIDERS: ATTEND Nurse Practitioner Family
DX: M54.5 Low back pain (principal)
CPT/HCPCS: 72100

== ENCOUNTER 2020-03-01 17:20 | Emergency (ER) | payer SELFPAY ==
--- NOTE | 2020-03-01 18:13 | ER Document Report ---
ED Medical Screen (RME) - General Chief Complaint: Shortness Of Breath Stated Complaint: DIFFICULTY BREATHING Time Seen by Provider: 03/01/20 18:04 Primary Care Provider: EDMUNDO UQESADA NP [Primary Care Provider] - Follow up as needed Mode of Arrival: Ambulatory Information source: Patient Notes: Patient presents complaining of cough for the past 6 or 7 weeks. Patient states that she does have some chest pain that is worse with coughing. Patient reports some chills and lightheadedness. Patient has an underlying history of asthma. Patient does have concerns about possible Covid exposure as well. I have greeted and performed a rapid initial assessment of this patient. A comprehensive ED assessment and evaluation of the patient, analysis of test results and completion of the medical decision making process will be conducted by additional ED providers. TRAVEL OUTSIDE OF THE [place] IN LAST 30 DAYS: No - Related Data Allergies/Adverse Reactions: azithromycin [From Zithromax Z-Lukas] Allergy (Verified 06/02/19 11:24) Past Medical History - Past Medical History Cardiac Medical History: Reports: Hx Atrial Fibrillation, Hx Congestive Heart Failure, Hx Hypercholesterolemia, Hx Hypertension Denies: Hx DVT, Hx Heart Attack, Hx Pulmonary Embolism Pulmonary Medical History: Reports: Hx Asthma, Hx Bronchitis, Hx Pneumonia Neurological Medical History: Reports: Hx Migraine Renal/ Medical History: Reports: Hx Kidney Stones, Hx Ovarian Cysts. Denies: Hx Peritoneal Dialysis Musculoskeltal Medical History: Reports Hx Musculoskeletal Deformity, Reports Hx Musculoskeletal Trauma Psychiatric Medical History: Reports: Hx Anxiety, Hx Depression Traumatic Medical History: Reports: Hx Spine Fracture, Hx Traumatic Brain Injury Past Surgical History: Reports: Hx Section - x 2, Hx Kidney (Renal Surgery) - nephrectomy- followed closetly on tacrolimus and mtx by , Hx Orthopedic Surgery - Abscess, Hx Tubal Ligation - Immunizations Immunizations up to date: Yes Hx Diphtheria, Pertussis, Tetanus Vaccination: Yes Physical Exam - Vital signs Vitals: Temp Pulse Resp BP Pulse Ox 98.2 F 109 H 20 114/90 H 100 03/01/20 17:26 03/01/20 17:26 03/01/20 17:26 03/01/20 17:26 03/01/20 17:26 - Respiratory Respiratory status: No respiratory distress Breath sounds: Nonproductive cough - Cardiovascular Rhythm: Tachycardia Heart sounds: S1 appreciated, S2 appreciated Course - Vital Signs Vital signs: Temp Pulse Resp BP Pulse Ox 98.2 F 109 H 20 114/90 H 100 03/01/20 17:26 03/01/20 17:26 03/01/20 17:26 03/01/20 17:26 03/01/20 17:26 Doctor's Discharge - Discharge Referrals: EDMUNDO QUESADA NP [Primary Care Provider] - Follow up as needed
--- NOTE | 2020-03-01 19:07 | RADIOLOGY REPORT (SQ) ---
EXAM DESCRIPTION: CHEST SINGLE VIEW IMAGES COMPLETED DATE/TIME: 03/01/2020 6:57 pm REASON FOR STUDY: cough, cp COMPARISON: PA and lateral views of the chest from 10/03/2018. EXAM PARAMETERS: NUMBER OF VIEWS: One view. TECHNIQUE: An AP view of the chest was obtained. RADIATION DOSE: NA LIMITATIONS: None. FINDINGS: LUNGS AND PLEURA: No consolidation, pleural effusion or pneumothorax. MEDIASTINUM AND HILAR STRUCTURES: No mediastinal or hilar contour abnormality. HEART AND VASCULAR STRUCTURES: The cardiac silhouette and pulmonary vasculature are within normal ying its. BONES: No acute findings. HARDWARE: None in the chest. OTHER: No other finding. IMPRESSION: No acute cardiopulmonary process. TECHNICAL DOCUMENTATION: JOB ID: [id number] 2010 [employer]- All Rights Reserved Reading location - IP/workstation name: [email or web address]
[2020-03-01 21:21] LABS: ABSOLUTE BASOPHILS # (AUTO) 0.1 10^3/uL (0.0-0.2); ABSOLUTE EOSINOPHILS # (AUTO) 0.2 10^3/uL (0.0-0.6); ABSOLUTE LYMPHOCYTES (AUTO) 2.6 10^3/uL (0.5-4.7); ABSOLUTE MONOCYTES (AUTO) 0.6 10^3/uL (0.1-1.4); ABSOLUTE NEUT (AUTO) 5.6 10^3/uL (1.7-8.2); BASOPHILS % (AUTO) 0.9 % (0-2); EOSINOPHILS % (AUTO) 2.6 % (0-6); LYMPHOCYTES % (AUTO) 28.4 % (13-45); MEAN CORPUSCULAR HEMOGLOBIN 16.2 pg (27.0-33.4); MEAN CORPUSCULAR HGB CONC 28.2 g/dL (32.0-36.0); MEAN CORPUSCULAR VOLUME 58 fl (80-97); MONOCYTES % (AUTO) 6.8 % (3-13); PLATELET COUNT 214 10^3/uL (150-450); RED BLOOD COUNT 4.01 10^6/uL (3.72-5.28); SEGMENTED NEUTROPHILS % (AUTO) 61.3 % (42-78); TOTAL CELLS COUNTED % (AUTO) 100 %; WHITE BLOOD COUNT 9.1 10^3/uL (4.0-10.5)
[2020-03-01 21:29] LABS: HEMOGLOBIN 6.5 g/dL (12.0-15.5)
[2020-03-01 21:33] LABS: ALBUMIN 4.1 g/dL (3.5-5.0); ALKALINE PHOSPHATASE 56 U/L (38-126); ANION GAP 9 (5-19); ASPARTATE AMINO TRANSFERASE 17 U/L (14-36); BILIRUBIN,TOTAL 0.3 mg/dL (0.2-1.3); BLOOD UREA NITROGEN 7 mg/dL (7-20); CALCIUM 9.3 mg/dL (8.4-10.2); CARBON DIOXIDE 23 mmol/L (22-30); CHLORIDE 104 mmol/L (98-107); GLUCOSE 82 mg/dL (75-110); POTASSIUM 4.1 mmol/L (3.6-5.0); TOTAL PROTEIN 7.6 g/dL (6.3-8.2)
--- NOTE | 2020-03-01 21:34 | ER Document Report ---
ED General - General Chief Complaint: Shortness Of Breath Stated Complaint: DIFFICULTY BREATHING Time Seen by Provider: 03/01/20 18:04 Primary Care Provider: EDMUNDO QUESADA NP [NURSE PRACTITIONER] - Follow up as needed TEN MCGUIRE MD [ACTIVE STAFF] - Follow up in 3-5 days Mode of Arrival: Ambulatory TRAVEL OUTSIDE OF THE [place] IN LAST 30 DAYS: No - HPI Notes: Patient is a 29-year-old female who presents with a cough. Patient states she has had a cough for about 1 month. It is nonproductive. She went to urgent care and was given azithromycin and an inhaler. She states that the medication helped but once she finished it, her symptoms returned. She has some shortness of breath. Leg swelling. No hormonal control. No lightheadedness or dizziness. Patient states her chest hurts when she coughs. No nausea or vomiting. She did mention loss of taste. Patient has not been around anyone known Covid positive. - Related Data Allergies/Adverse Reactions: azithromycin [From Zithromax Z-Lukas] Allergy (Verified 06/02/19 11:24) Past Medical History - General Information source: Patient - Social History Smoking Status: Unknown if Ever Smoked Family History: Arthritis, CAD - Patient's father had CABG in his 40s, DM, Hyperlipidemia, Hypertension, Malignancy Patient has homicidal ideation: No - Past Medical History Cardiac Medical History: Reports: Hx Atrial Fibrillation, Hx Congestive Heart Failure, Hx Hypercholesterolemia, Hx Hypertension Denies: Hx DVT, Hx Heart Attack, Hx Pulmonary Embolism Pulmonary Medical History: Reports: Hx Asthma, Hx Bronchitis, Hx Pneumonia Neurological Medical History: Reports: Hx Migraine Renal/ Medical History: Reports: Hx Kidney Stones, Hx Ovarian Cysts. Denies: Hx Peritoneal Dialysis Musculoskeletal Medical History: Reports Hx Musculoskeletal Deformity, Reports Hx Musculoskeletal Trauma Psychiatric Medical History: Reports: Hx Anxiety, Hx Depression Traumatic Medical History: Reports: Hx Spine Fracture, Hx Traumatic Brain Injury Past Surgical History: Reports: Hx Section - x 2, Hx Kidney (Renal Surgery) - nephrectomy- followed closetly on tacrolimus and mtx by , Hx Orthopedic Surgery - Abscess, Hx Tubal Ligation - Immunizations Immunizations up to date: Yes Hx Diphtheria, Pertussis, Tetanus Vaccination: Yes Hx Pneumococcal Vaccination: 04/07/00 Review of Systems - Review of Systems Notes: CONSTITUTIONAL: No fever, fatigue or weight loss. SKIN: No rash. HENT: No congestion, ear pain, or sore throat. EYES: No recent vision problems or eye pain. CARDIOVASCULAR: No chest pain or edema. RESPIRATORY: Positive for cough and chest tightness. GASTROINTESTINAL: No abdominal pain, nausea, vomiting, bloody stools or diarrhea. GENITOURINARY: No dysuria. MUSCULOSKELETAL: No joint pain or swelling. NEUROLOGIC: No seizures. No headache, focal weakness or sensory changes. HEMATOLOGIC: No unusual bruising or bleeding. PSYCHIATRIC: No depression or anxiety. Physical Exam - Vital signs Vitals: Temp Pulse Resp BP Pulse Ox 98.2 F 109 H 20 114/90 H 100 03/01/20 17:26 03/01/20 17:26 03/01/20 17:26 03/01/20 17:26 03/01/20 17:26 - General General appearance: Appears well Notes: VITAL SIGNS: Mild tachycardia. GENERAL: No acute distress, non-toxic appearance. HEAD: Normal with no signs of head trauma. EYES: EOMI, conjunctiva normal, no discharge. EARS: Hearing grossly intact. NECK: Normal range of motion, no tenderness, supple, no lymphadenopathy, No adenopathy, no JVD. CHEST: Clear breath sounds bilaterally. No wheezes, rales, or rhonchi. CARDIAC: Regular rate and rhythm. S1 and S2, without murmurs, gallops, or rubs. VASCULAR: No Edema. ABDOMEN: Normal and soft with no tenderness, no masses or pulsatile masses. GENITOURINARY: Normal, No tenderness MUSCULOSKELETAL: Good range of motion of all major joints. Extremities without clubbing, cyanosis or edema. NEUROLOGICAL: Alert and oriented x 3. No focal sensory or strength deficits. Speech normal. Follows commands appropriately. PSYCHIATRIC: Normal Affect, judgement and mood. SKIN: Normal appearance with no rashes or lesions. Course - Re-evaluation Re-evalutation: 03/01/20 21:33 Patient x-ray is normal. She has had a cough for about a month. She did not get better antibiotics. I will obtain a CT of her chest to rule out a PE as well as pneumonia. Patient is pending CTA. Patient's lab work returned with anemia at a hemoglobin of 6.5. From record review, she has had this before and needed blood transfusions. Patient states she is currently on her period. She has very heavy menstrual cycles. She has been going through many pads. This is not new. Has been taking iron. I discussed with Dr. Mcguire, EMERGENCY DEPARTMENT COORDINATOR who recommended we give her 2 units of blood and have her follow-up in the office. He did not recommend we put her on any medication. She will be signed out at the end of my shift. 03/01/20 21:36 03/01/20 22:06 - Vital Signs Vital signs: Temp Pulse Resp BP Pulse Ox 98.9 F 109 H 20 114/90 H 100 03/01/20 20:04 03/01/20 17:26 03/01/20 17:26 03/01/20 17:26 03/01/20 17:26 - Laboratory Result Diagrams: 03/01/20 21:01 03/01/20 21:01 Laboratory results interpreted by me: 03/01/20 03/01/20 21:01 21:01 Hgb 6.5 L Hct 23.0 L MCV 58 L MCH 16.2 L MCHC 28.2 L RDW 19.0 H Sodium 136.2 L - Diagnostic Test Radiology reviewed: Image reviewed, Reports reviewed - EKG Interpretation by Me EKG shows normal: Sinus rhythm Rate: Normal Rhythm: NSR When compared to previous EKG there are: No significant change Discharge - Discharge Clinical Impression: Cough Anemia Qualifiers: Anemia type: unspecified type Qualified Code(s): D64.9 - Anemia, unspecified Heavy menstrual bleeding Qualifiers: Menorrhagia type: with regular cycle Qualified Code(s): N92.0 - Excessive and frequent menstruation with regular cycle Condition: Stable Disposition: HOME, SELF-CARE Instructions: COVID-19 Guidance for Persons Under Investigation, Anemia ([facility]) Additional Instructions: Please follow-up with your EMERGENCY DEPARTMENT COORDINATOR and your family doctor. I have provided the number for EMERGENCY DEPARTMENT COORDINATOR for follow-up. Return to the ER for any lightheadedness, weakness, shortness of breath, any worsening symptoms. Prescriptions: Benzonatate [Tessalon Perles 100 mg Capsule] 100 mg PO TID PRN 5 Days #10 capsule PRN Reason: Referrals: EDMUNDO QUESADA NP [NURSE PRACTITIONER] - Follow up as needed TEN MCGUIRE MD [ACTIVE STAFF] - Follow up in 3-5 days
[2020-03-01] MEDS ORDERED: NORMAL SALINE 1000 ML 1,000 ML IV ONE (21:35)
[2020-03-01 21:44] LABS: ANISOCYTOSIS 2+; HYPOCHROMASIA 4+; OVALOCYTES 1+; PLATELET COMMENT ADEQUATE; POLYCHROMASIA 1+; TEAR DROP CELLS 1+
[2020-03-01] MEDS ORDERED: NORMAL SALINE 250 ML IV PRN ×2 (22:04)
--- NOTE | 2020-03-01 22:39 | RADIOLOGY REPORT (SQ) ---
EXAM DESCRIPTION: CT CHEST WITH INTRAVENOUS CONTRAST CLINICAL HISTORY: Persistent cough and chest pain COMPARISON: None available. TECHNIQUE: CT of the chest was performed with intravenous contrast using pulmonary embolism protocol, followed by CTA of the pulmonary arterial vasculature, with 3D reconstruction of the pulmonary arterial vasculature. The patient was injected with 75 mL Omnipaque [address] exam was performed according to our departmental dose-optimization program, which includes one or more of the following dose reduction techniques: automated exposure control, adjustment of the mA and/or kV according to patient size, and/or use of iterative reconstruction technique. FINDINGS: Exam is significantly technically limited by poor timing of the contrast bolus. There are no filling defects in the main pulmonary trunk, or first order of the visualized branches of the bilateral pulmonary arteries, to suggest a large central pulmonary embolism. There is no evidence of clinically significant thoracic aortic aneurysm or thoracic aortic dissection. There is no evidence of clinically significant pericardial effusion. There is a questionable pulmonary micronodules within the right upper lobe (sequence four image 43 through 44. The largest nodular opacity measures up to 5 mm in size. There is no pathological axillary, supraclavicular, mediastinal or hilar lymphadenopathy. No suspicious lytic or blastic osseous lesions are identified. There are multilevel degenerative spine changes. The visualized upper abdominal structures seen on the exam appear unremarkable. A small splenule is incidentally noted. IMPRESSION: 1. Significantly technically limited evaluation without definite large central acute pulmonary embolism. 2. Cluster of nodules within the right upper lobe is nonspecific and differential diagnosis includes infectious and inflammatory causes. Continued attention on follow-up is recommended.
--- NOTE | 2020-03-01 23:02 | EKG REPORT ---
SEVERITY:- NORMAL ECG - SINUS RHYTHM : Confirmed by: Gregory Arevalo MD 01-Mar-2020 23:01:52
[2020-03-02 08:21] VITALS: BP 132/64
== END 2020-03-02 08:00 | disposition home or self-care (01) ==
LOC: ER 17:20
DX: N92.0 Excessive and frequent menstruation with regular cycle (principal); R05 Cough; D64.9 Anemia, unspecified; R06.02 Shortness of breath; M79.89 Other specified soft tissue disorders; Z88.1 Allergy status to other antibiotic agents; I48.91 Unspecified atrial fibrillation; I50.9 Heart failure, unspecified; I10 Essential (primary) hypertension; J45.909 Unspecified asthma, uncomplicated; Z20.828 Contact with and (suspected) exposure to other viral communicable diseases
CPT/HCPCS: 93005; 99285; 96360; 86900; 86901; 36415; 36430; 86850; 84703; 85025; 87635; 80053; 84484; 86920; 71045; 71275; 93010; P9016; J7030; C9803